=== PATIENT | female | born 1955 | race Caucasian/White ===

== ENCOUNTER 2016-06-15 20:59 | Emergency (ER) | payer SELFPAY ==
[2016-06-15 21:05] VITALS: BP 156/67
[2016-06-15] MEDS ORDERED: ASPIRIN 81 MG TABLET, CHEWABLE PO ONE (21:06)
--- NOTE | 2016-06-15 21:06 | ER Document Report ---
ED Medical Screen (RME) - General Stated Complaint: PALPITATIONS Notes: patient is a 60 year old female p/w palpitations since sunday but got worse today. shortness of breath with palpitations. denies swollen extremities. PMH: CHF, DM, HTN, HLD stress test: august 2015 dyspnea, CTAB I have greeted and performed a rapid initial assessment of this patient. A comprehensive ED assessment and evaluation of the patient, analysis of test results and completion of the medical decision making process will be conducted by additional ED providers. TRAVEL OUTSIDE OF THE [place] IN LAST 30 DAYS: No - Related Data Allergies/Adverse Reactions: Penicillins Allergy (Verified 04/04/16 23:48) Past Medical History - Past Medical History Cardiac Medical History: Reports: Hx Congestive Heart Failure, Hx Hypertension Endocrine Medical History: Reports: Hx Diabetes Mellitus Type 2 - Immunizations Hx Diphtheria, Pertussis, Tetanus Vaccination: Yes
[2016-06-15 21:33] LABS: ABSOLUTE BASOPHILS # (AUTO) 0.1 10^3/uL (0.0-0.2); ABSOLUTE EOSINOPHILS # (AUTO) 0.3 10^3/uL (0.0-0.6); ABSOLUTE LYMPHOCYTES (AUTO) 2.5 10^3/uL (0.5-4.7); ABSOLUTE MONOCYTES (AUTO) 0.6 10^3/uL (0.1-1.4); ABSOLUTE NEUT (AUTO) 5.6 10^3/uL (1.7-8.2); BASOPHILS % (AUTO) 0.6 % (0-2); EOSINOPHILS % (AUTO) 3.7 % (0-6); HEMATOCRIT 38.7 % (36.0-47.0); HEMOGLOBIN 12.8 g/dL (12.0-15.5); HGB HCT DIFFERENCE -0.3; LYMPHOCYTES % (AUTO) 27.6 % (13-45); MEAN CORPUSCULAR HEMOGLOBIN 27.4 pg (27.0-33.4); MEAN CORPUSCULAR HGB CONC 33.1 g/dL (32.0-36.0); MEAN CORPUSCULAR VOLUME 83 fl (80-97); MONOCYTES % (AUTO) 6.9 % (3-13); RED BLOOD COUNT 4.68 10^6/uL (3.72-5.28); RED CELL DISTRIBUTION WIDTH 15.3 % (11.5-14.0); SEGMENTED NEUTROPHILS % (AUTO) 61.2 % (42-78); WHITE BLOOD COUNT 9.2 10^3/uL (4.0-10.5)
[2016-06-15 21:47] LABS: ALANINE AMINOTRANSFERASE 19 U/L (9-52); ALBUMIN 3.8 g/dL (3.5-5.0); ALKALINE PHOSPHATASE 81 U/L (38-126); ANION GAP 7 (5-19); ASPARTATE AMINO TRANSFERASE 11 U/L (14-36); BILIRUBIN,TOTAL 0.3 mg/dL (0.2-1.3); BLOOD UREA NITROGEN 13 mg/dL (7-20); CALCIUM 9.6 mg/dL (8.4-10.2); CARBON DIOXIDE 30 mmol/L (22-30); CHLORIDE 103 mmol/L (98-107); CREATINE KINASE 42 U/L (30-135); CREATININE RESULT 0.71 mg/dL (0.52-1.25); GLUCOSE 232 mg/dL (75-110); POTASSIUM 4.3 mmol/L (3.6-5.0); SODIUM 140.3 mmol/L (137-145); TOTAL PROTEIN 7.3 g/dL (6.3-8.2)
[2016-06-15 22:01] LABS: CREATINE KINASE MB < 0.22 ng/mL (<4.55); TROPONIN I < 0.012 ng/mL
--- NOTE | 2016-06-15 22:24 | ER Document Report ---
ED General - General Chief Complaint: Palpitations Stated Complaint: PALPITATIONS Notes: Patient is a 60-year-old female who presents with palpitations. States that for the past several weeks she has felt intermittent "thumps" in her chest followed by "a pause where it feels like my heart isn't beating". Denies any chest pain, shortness of breath, nausea, vomiting. Nothing improves or worsens or symptoms. 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 Notes a history of similar symptoms in the past that did spontaneously resolve. No new medications. TRAVEL OUTSIDE OF THE [place] IN LAST 30 DAYS: No - Related Data Allergies/Adverse Reactions: Penicillins Allergy (Verified 04/04/16 23:48) Past Medical History - General Information source: Patient - Social History Smoking Status: Never Smoker Frequency of alcohol use: None Drug Abuse: None Lives with: Spouse/Significant other Family History: Reviewed & Not Pertinent Patient has suicidal ideation: No Patient has homicidal ideation: No - Past Medical History Cardiac Medical History: Reports: Hx Congestive Heart Failure, Hx Hypertension Endocrine Medical History: Reports: Hx Diabetes Mellitus Type 2 Renal/ Medical History: Denies: Hx Peritoneal Dialysis - Immunizations Hx Diphtheria, Pertussis, Tetanus Vaccination: Yes Review of Systems - Review of Systems Notes: Constitutional: Negative for fever. HENT: Negative for sore throat. Eyes: Negative for visual changes. Cardiovascular: Negative for chest pain. Positive for palpitations Respiratory: Negative for shortness of breath. Gastrointestinal: Negative for abdominal pain, vomiting or diarrhea. Genitourinary: Negative for dysuria. Musculoskeletal: Negative for back pain. Skin: Negative for rash. Neurological: Negative for headaches, weakness or numbness. 10 point ROS negative except as marked above and in HPI. Physical Exam - Vital signs Vitals: Temp Pulse Resp BP Pulse Ox 97.3 F 71 18 156/67 H 97 06/15/16 21:02 06/15/16 21:02 06/15/16 21:02 06/15/16 21:02 06/15/16 21:02 Interpretation: Hypertensive Notes: PHYSICAL EXAMINATION: GENERAL: Well-appearing, well-nourished and in no acute distress. HEAD: Atraumatic, normocephalic. EYES: Pupils equal round and reactive to light, extraocular movements intact, sclera anicteric, conjunctiva are normal. ENT: nares patent, oropharynx clear without exudates. Moist mucous membranes. NECK: Normal range of motion, supple without lymphadenopathy LUNGS: Breath sounds clear to auscultation bilaterally and equal. No wheezes rales or rhonchi. HEART: Regular rate and rhythm without murmurs ABDOMEN: Soft, nontender, normoactive bowel sounds. No guarding, no rebound. No masses appreciated. EXTREMITIES: Normal range of motion, no pitting or edema. No cyanosis. NEUROLOGICAL: No focal neurological deficits. Moves all extremities spontaneously and on command. PSYCH: Normal mood, normal affect. SKIN: Warm, Dry, normal turgor, no rashes or lesions noted. Course - Re-evaluation Re-evalutation: 06/15/16 22:21 Patient presents with palpitations but is in no acute distress. Vitals within normal limits at time of arrival. EKG unremarkable with a normal sinus rhythm. Laboratories are unremarkable. Patient denies any chest pain, shortness of breath, or vomiting. At this time based on exam and history do not suspect a new onset arrhythmia, ACS, acute pulmonary embolus, aortic dissection. Patient encouraged to follow-up with her primary care physician as well as cardiology and a referral has been provided.At this time will discharge with return precautions and follow-up recommendations. Verbal discharge instructions given a the bedside and opportunity for questions given. Medication warnings reviewed. Patient is in agreement with this plan and has verbalized understanding of return precautions and the need for primary care follow-up in the next 24-72 hours. - Vital Signs Vital signs: Temp Pulse Resp BP Pulse Ox 97.3 F 71 20 156/67 H 99 06/15/16 21:02 06/15/16 21:02 06/15/16 22:35 06/15/16 21:02 06/15/16 22:35 - Laboratory Result Diagrams: 06/15/16 21:24 06/15/16 21:24 Laboratory results interpreted by me: 06/15/16 06/15/16 21:24 21:24 RDW 15.3 H Glucose 232 H AST 11 L - EKG Interpretation by Me Additional EKG results interpreted by me: 06/15/16 22:23 Normal sinus rhythm. Rate 65. No ST elevations or depressions. QTC 500. Discharge - Discharge Clinical Impression: Palpitations Condition: Good Disposition: HOME, SELF-CARE Additional Instructions: Please follow-up closely with cardiology regarding your palpitations. Return if you pass out, have shortness of breath, persistent vomiting, develop significant chest pain, or have any other symptoms that are concerning to you. Referrals: JASON BUTTERFIELD MD [ACTIVE STAFF] - Follow up in 3-5 days
--- NOTE | 2016-06-16 08:24 | EKG REPORT ---
SEVERITY:- ABNORMAL ECG - SINUS RHYTHM LEFT VENTRICULAR HYPERTROPHY BORDERLINE PROLONGED QT INTERVAL : Confirmed by: Tariq Caballero MD 16-Jun-2016 08:23:21
== END 2016-06-15 22:50 | disposition home or self-care (01) ==
LOC: ER 20:59
DX: R00.2 Palpitations (principal)
CPT/HCPCS: 36415; 80053; 82550; 82553; 83880; 84484; 85025; 93005; 93010; 99285

== ENCOUNTER 2016-08-04 09:20 | Day surgery (SDC) | payer MEDICAID ==
[2016-08-04] MEDS ORDERED: NALOXONE HCL INJ/PF 0.4 MG/1 ML SDV ONE (09:56)
[2016-08-04] MEDS ORDERED: DIPHENHYDRAMINE HCL 50 MG/ML VIAL ONE (09:57)
[2016-08-04] MEDS ORDERED: PROMETHAZINE HCL INJ 25 MG/1 ML VIAL ONE (09:57)
[2016-08-04] MEDS ORDERED: ONDANSETRON HCL INJ/PF 4 MG/2 ML SDV ONE (09:57)
[2016-08-04] MEDS ORDERED: FLUMAZENIL INJ 0.5 MG/5 ML VIAL IV ONE (09:58)
[2016-08-04] MEDS ORDERED: EPINEPHRINE INJ 1 MG/10 ML DISP.SYRIN ONE (09:58)
[2016-08-04] MEDS ORDERED: FENTANYL CITRATE INJ/PF 100 MCG/2 ML AMPUL ONE (09:58)
[2016-08-04] MEDS ORDERED: GLUCAGON,HUMAN RECOMB 1 MG INJ ONE (09:58)
[2016-08-04] MEDS: MIDAZOLAM 2 MG/2 ML INJ ONE ×2 (10:12→10:16)
--- NOTE | 2016-08-04 10:37 | Operative Report ---
Operative Report DATE OF SURGERY: 08/04/16 Operative Report: The risks, benefits and alternatives of the procedure including risks of bleeding, perforation requiring surgery are explained to the patient detail and informed consents obtained. Patient is taken to the endoscopy suite and placed in a left, lateral decubital position. Timeout is called. Conscious sedation medications are provided. An Olympus videoscope was inserted patient's rectum the scope was then gradually advanced all the way to the cecum. The cecum was identified by the usual anatomical landmarks including the ileocecal valve as well as the appendiceal office. Photo recommendations obtained. Prep is good. Scope was then sequentially pulled back via the rest segments of the colon including the ascending colon, hepatic flexure, transverse colon, splenic flexure, descending colon and finally into the rectosigmoid portions of the colon. Retroflexion maneuvers performed. PREOPERATIVE DIAGNOSIS: Colon cancer screening. POSTOPERATIVE DIAGNOSIS: Colon polyp noted in the descending colon that is removed via snare polypectomy. Right Sided inflammation status post biopsy. Internal hemorrhoids OPERATION: Colonoscopy with snare polypectomy. Colonoscopy with biopsy SURGEON: RICHARD BARBA ANESTHESIA: Moderate Sedation - 4 mg of Versed, 75 g of fentanyl. Conscious sedation monitoring time 30 minutes. TISSUE REMOVED OR ALTERED: Colon polyp is retrieved. Right Sided mucosal inflammation specimen retrieved. COMPLICATIONS: None. ESTIMATED BLOOD LOSS: none. INTRAOPERATIVE FINDINGS: As noted above. PROCEDURE: Patient tolerated procedure well. No immediate post procedure competitions are noted. Patient discharged in good condition. Discharge date 08/04/2016. Discharge diet: Regular. Discharge activity: Regular. 2-3 week follow-up to discuss findings. Patient is instructed to call the office should there be any further problems or questions. Five-year surveillance colonoscopy. We'll await on biopsies.
[2016-08-04 11:32] VITALS: BP 134/61
== END 2016-08-04 11:40 | disposition home or self-care (01) ==
LOC: END 09:20
PROVIDERS: ATTEND Internal Medicine Gastroenterology
PROC: 0DBF8ZX Excision of Right Large Intestine, Via Natural or Artificial Opening Endoscopic, Diagnostic (ICD-10-PCS; principal; 2016-08-04 10:00)
PROC: 0DBM8ZX Excision of Descending Colon, Via Natural or Artificial Opening Endoscopic, Diagnostic (ICD-10-PCS; 2016-08-04 10:00)
DX: D12.4 Benign neoplasm of descending colon (principal); K52.9 Noninfective gastroenteritis and colitis, unspecified; K64.8 Other hemorrhoids; E11.9 Type 2 diabetes mellitus without complications; E78.5 Hyperlipidemia, unspecified; F17.210 Nicotine dependence, cigarettes, uncomplicated; I50.40 Unspecified combined systolic (congestive) and diastolic (congestive) heart failure; E66.9 Obesity, unspecified; Z79.82 Long term (current) use of aspirin; Z68.35 Body mass index [BMI] 35.0-35.9, adult; Z79.84 Long term (current) use of oral hypoglycemic drugs; Z88.0 Allergy status to penicillin
CPT/HCPCS: 45380; 45385; 82962; 88305 ×2; J2250; J3010; J0171; J1200; J1610; J2310; J2405; J2550; J3490

== ENCOUNTER → 2016-08-14 | Outpatient (CLI) | payer MEDICAID ==
[2016-08-14 10:54] LABS: ALANINE AMINOTRANSFERASE 23 U/L (9-52); ALBUMIN 4.3 g/dL (3.5-5.0); ALKALINE PHOSPHATASE 75 U/L (38-126); ANION GAP 12 (5-19); ASPARTATE AMINO TRANSFERASE 14 U/L (14-36); BILIRUBIN,DIRECT 0.1 mg/dL (0.0-0.4); BILIRUBIN,TOTAL 0.4 mg/dL (0.2-1.3); BLOOD UREA NITROGEN 14 mg/dL (7-20); CALCIUM 9.3 mg/dL (8.4-10.2); CARBON DIOXIDE 26 mmol/L (22-30); CHLORIDE 105 mmol/L (98-107); CREATININE RESULT 0.56 mg/dL (0.52-1.25); Direct HDL 44 mg/dL (>40); GLUCOSE 156 mg/dL (75-110); POTASSIUM 4.6 mmol/L (3.6-5.0); SODIUM 143.1 mmol/L (137-145); TOTAL PROTEIN 7.1 g/dL (6.3-8.2); TRIGLYCERIDES 72 mg/dL (<150)
[2016-08-14 11:05] LABS: DIRECT LDL 68 mg/dL (<100)
== END ==
LOC: OD 09:30
PROVIDERS: ATTEND Internal Medicine Cardiovascular Disease
DX: E78.2 Mixed hyperlipidemia (principal); Z79.899 Other long term (current) drug therapy
CPT/HCPCS: 36415; 80048; 80061; 80076; 84443

== ENCOUNTER → 2016-08-17 | Outpatient (CLI) | payer MEDICAID | LOC: WI 09:44 | PROVIDERS: ATTEND Family Medicine | DX: Z12.31 Encounter for screening mammogram for malignant neoplasm of breast (principal) | CPT/HCPCS: 77067; G0202 ==

== ENCOUNTER 2016-11-13 04:49 | Emergency (ER) | payer MEDICAID ==
--- NOTE | 2016-11-13 05:20 | ER Document Report ---
ED Respiratory Problem - General Chief Complaint: Shortness Of Breath Stated Complaint: CANNOT BREATH Time Seen by Provider: 11/13/16 05:17 Mode of Arrival: Ambulatory Information source: Patient Notes: 60-year-old female presents to ED for shortness of breath since . She states she has not had a good bowel movement since except for a few little round balls and that is when her shortness of breath started. She does have a past medical history of high cholesterol diabetes and CHF. States she smokes a pack a day TRAVEL OUTSIDE OF THE [place] IN LAST 30 DAYS: No - HPI Patient complains to provider of: CHF, Short of breath Onset: Other - She states she has been short of breath since Duration: Continuous, Intermittent episodes Quality of pain: Cramping - Mental cramping from not having a Severity: Moderate Pain Level: 4 Context: Hx CHF, Smoker Short of Breath: Moderate Sputum amount: None Associated symptoms: Short of breath - States the shortness of breath started after the cramping in her abdomen from not having a bowel movement, Other - States she has been constipated Similar symptoms previously: Yes Recently seen / treated by doctor: No - Related Data Allergies/Adverse Reactions: Penicillins Allergy (Verified 08/04/16 09:46) Past Medical History - General Information source: Patient - Social History Smoking Status: Current Every Day Smoker Cigarette use (# per day): Yes - Pack per day Chew tobacco use (# tins/day): No Smoking Education Provided: Yes - Less than 2 minutes Frequency of alcohol use: None Drug Abuse: None Occupation: none Lives with: Spouse/Significant other Family History: DM, Hypertension, Malignancy. denies: Arthritis, CAD, COPD, CVA , Hyperlipidemia, Thyroid Disfunction Patient has suicidal ideation: No Patient has homicidal ideation: No - Past Medical History Cardiac Medical History: Reports: Hx Congestive Heart Failure, Hx Coronary Artery Disease, Hx Hypertension Pulmonary Medical History: Reports: None EENT Medical History: Reports: None Neurological Medical History: Reports: None Endocrine Medical History: Reports: Hx Diabetes Mellitus Type 2 Renal/ Medical History: Reports: None Malignancy Medical History: Reports: None GI Medical History: Reports: None Musculoskeltal Medical History: Reports None Skin Medical History: Reports None Psychiatric Medical History: Reports: None Traumatic Medical History: Reports: None Infectious Medical History: Reports: None Past Surgical History: Reports: Hx Breast Surgery - Cyst removed from breast - Immunizations Immunizations up to date: Yes Hx Diphtheria, Pertussis, Tetanus Vaccination: Yes Review of Systems - Review of Systems Constitutional: No symptoms reported EENT: No symptoms reported Cardiovascular: No symptoms reported Respiratory: Short of breath Gastrointestinal: Abdominal pain, Constipation Genitourinary: No symptoms reported Female Genitourinary: No symptoms reported Musculoskeletal: No symptoms reported Skin: No symptoms reported Hematologic/Lymphatic: No symptoms reported Neurological/Psychological: No symptoms reported -: Yes All other systems reviewed and negative Physical Exam - Vital signs Vitals: Temp Pulse Resp BP Pulse Ox 97.5 F 68 22 H 150/79 H 99 11/13/16 04:52 11/13/16 04:52 11/13/16 04:52 11/13/16 04:52 11/13/16 04:52 Interpretation: Normal - General General appearance: Appears well, Alert - HEENT Head: Normocephalic, Atraumatic Eyes: Normal Pupils: PERRL - Respiratory Respiratory status: No respiratory distress Chest status: Nontender Breath sounds: Normal Chest palpation: Normal - Cardiovascular Rhythm: Regular Heart sounds: Normal auscultation Murmur: No - Abdominal Inspection: Normal Distension: No distension Bowel sounds: Hyperactive Tenderness: Tender Organomegaly: No organomegaly - Back Back: Normal, Nontender - Extremities General upper extremity: Normal inspection, Nontender, Normal color, Normal ROM , Normal temperature General lower extremity: Normal inspection, Nontender, Normal color, Normal ROM , Normal temperature, Normal weight bearing. No: Jose's sign - Neurological Neuro grossly intact: Yes Cognition: Normal Orientation: AAOx4 [place] Coma Scale Eye Opening: Spontaneous [place] Coma Scale Verbal: Oriented [place] Coma Scale Motor: Obeys Commands [place] Coma Scale Total: 15 Speech: Normal Motor strength normal: LUE, RUE, LLE, RLE Sensory: Normal - Psychological Associated symptoms: Normal affect, Normal mood - Skin Skin Temperature: Warm Skin Moisture: Dry Skin Color: Normal Course - Re-evaluation Re-evalutation: 11/13/16 07:21 Discussed labs and abdominal x-ray with Dr. Concepcion. Explained to him that the patient complained of constipation she had a enema and a very large bowel movement and now is no longer short of breath and feels much better. Will discharge patient home. Gave her a copy of the lab and x-ray reports to take to her primary doctor for follow-up - Vital Signs Vital signs: Temp Pulse Resp BP Pulse Ox 98.6 F 68 27 H 130/70 H 100 11/13/16 07:00 11/13/16 04:52 11/13/16 07:00 11/13/16 07:00 11/13/16 07:00 - Laboratory Result Diagrams: 11/13/16 05:25 11/13/16 05:25 Laboratory results interpreted by me: 11/13/16 11/13/16 05:25 05:25 Hgb 11.5 L Hct 35.8 L MCH 26.7 L RDW 16.1 H Chloride 108 H Creatinine 0.48 L Glucose 173 H - Diagnostic Test Radiology reviewed: Image reviewed, Reports reviewed Discharge - Discharge Clinical Impression: Mild shortness of breath Constipation Qualifiers: Constipation type: unspecified constipation type Qualified Code(s): K59.00 - Constipation, unspecified Condition: Stable Disposition: HOME, SELF-CARE Additional Instructions: ABDOMINAL PAIN: There are many causes of abdominal pain. Pain can mean a serious problem requiring surgery (such as appendicitis). It can also be an innocent problem that goes away on its own (such as a viral infection). Often, time must pass to determine the cause of pain. The physician does not feel that hospitalization is necessary, at present. Things may change within the next 24 hours. Call the doctor or come back for re- examination if any problems occur, such as: (1) Pain that becomes more severe, steady, or becomes concentrated in one specific area. Also, pain that is more severe with movement or coughing. (2) Vomiting that persists or becomes more frequent. (3) Blood in the vomitus, urine, or bowel movements. Blood in the stool may have a tarry or black appearance. (4) Shaking chills or fever greater than 100 degrees F. (5) The abdomen becomes more distended or swollen. (6) Bowel movements cease. (7) Failure to improve as expected. NORMAL EXAM AND WORKUP: At this time, your examination and workup show no significant abnormality. No significant abnormal physical findings were noted. All laboratory, EKG, and imaging (x-ray, CT scans, ultrasound) studies that were ordered show no significant abnormality. Although your examination and all studies that were ordered showed no significant abnormal finding, there are no examinations and no studies that are 100% accurate. There is always the possibility that some abnormality could exist and not be detected with physical examination or within the limits and capabilities of laboratory and other studies. You should return or follow up as you were instructed on your visit today for further evaluation if your symptoms do not resolve. FOLLOW-UP CARE: If you have been referred to a physician for follow-up care, call the physician s office for an appointment as you were instructed or within the next two days. If you experience worsening or a significant change in your symptoms, notify the physician immediately or return to the Emergency Department at any time for re-evaluation. CONSTIPATION: Constipation is a common problem. It is especially likely as you get older. Constipation is a common cause of abdominal pain, but sometimes causes no symptoms at all. Causes of constipation include certain medications, dehydration, diets, inactivity, and low-fiber intake. Rarely, it can be a symptom of underlying disease. The physician has evaluated you for this. Avoid constipation by eating a diet high in fiber, fruits, and vegetables. Drink plenty of liquids. Get regular exercise. If possible, avoid constipating medicines like narcotic pain medication. Some vitamin tablets can cause constipation. Stool softeners may be needed for difficult cases. An excellent stool softener is Konsyl which is available at [facility], and [facility] drug store. Just add a teaspoon to a glass of pineapple or orange juice daily or twice a day if needed. Laxatives are useful for occasional constipation. You should use them only when necessary. Too-frequent use can make your bowels dependent on them. Some over the counter laxatives available without prescription are: Milk of Magnesia, 1-2 tablespoons twice a day Dulcolax, 5 mg pill or 10 mg suppository. Citrate of Magnesia, 4-5 ounces a day for a day or two For acute constipation, Fleet's Enemas and Dulcolax suppositories are helpful. Chronic, alf use of laxatives or enemas is not a good idea. Your bowel may become dependant on them. You do not need to have a bowel movement every day. Many people do fine with a bowel movement every three or four days. You should call your doctor or return for re-evaluation if you pass blood in the stool, or if you develop fever or increasing abdominal pain. BULK LAXATIVES: Bulk laxatives make the stool softer and bulkier. They're useful for preventing constipation. You can choose between psyllium, methylcellulose, and polycarbophil. They are available without a prescription. Psyllium brand names include Konsyl, Metamucil, Perdiem, Effer-Syllium and Hydrocil. It's available as powder, flavored drink powder, or chewable. The usual dose of psyllium powder is one heaping teaspoon in water each morning, increasing to twice a day if needed. [place] juice can disguise the slightly grainy texture. Methylcellulose is marketed as Citrucel and other brands. The average dose is two grams in a cup of water one to three times a day. Polycarbophil is marketed as Fiber-Con. Take two tablets with a cup of water one to three times a day. LAXATIVE: A laxative agent has been prescribed for your condition. This should result in passage of stool within 12 hours. Some mild intestinal cramping is common as the hard stool begins to move. You may have loose or runny stools for a short time. Contact your doctor if there is severe cramping, vomiting, or passage of blood. Return for further care if this medicine fails to improve your condition. Review labs and chest x-ray report have been given to you to follow-up with your primary doctor. FOLLOW-UP CARE: If you have been referred to a physician for follow-up care, call the physician s office for an appointment as you were instructed or within the next two days. If you experience worsening or a significant change in your symptoms, notify the physician immediately or return to the Emergency Department at any time for re-evaluation. Please call your primary doctor today and schedule a follow-up visit for your shortness of breath. You have stated you have a much relief after your large bowel movement with your enema. Forms: Elevated Blood Pressure Referrals: JESSICA NAIR MD [Primary Care Provider] - Follow up tomorrow
[2016-11-13 05:44] LABS: ABSOLUTE EOSINOPHILS # (AUTO) 0.4 10^3/uL (0.0-0.6); ABSOLUTE LYMPHOCYTES (AUTO) 2.4 10^3/uL (0.5-4.7); ABSOLUTE MONOCYTES (AUTO) 0.6 10^3/uL (0.1-1.4); ABSOLUTE NEUT (AUTO) 5.6 10^3/uL (1.7-8.2); BASOPHILS % (AUTO) 0.6 % (0-2); HEMATOCRIT 35.8 % (36.0-47.0); HEMOGLOBIN 11.5 g/dL (12.0-15.5); HGB HCT DIFFERENCE -1.3; MEAN CORPUSCULAR HEMOGLOBIN 26.7 pg (27.0-33.4); MEAN CORPUSCULAR HGB CONC 32.2 g/dL (32.0-36.0); MEAN CORPUSCULAR VOLUME 83 fl (80-97); MONOCYTES % (AUTO) 6.2 % (3-13); RED BLOOD COUNT 4.31 10^6/uL (3.72-5.28); RED CELL DISTRIBUTION WIDTH 16.1 % (11.5-14.0); SEGMENTED NEUTROPHILS % (AUTO) 62.2 % (42-78); WHITE BLOOD COUNT 9.1 10^3/uL (4.0-10.5)
[2016-11-13 05:54] LABS: ALANINE AMINOTRANSFERASE 25 U/L (9-52); ALBUMIN 3.9 g/dL (3.5-5.0); ALKALINE PHOSPHATASE 85 U/L (38-126); ANION GAP 9 (5-19); ASPARTATE AMINO TRANSFERASE 16 U/L (14-36); BILIRUBIN,DIRECT 0.3 mg/dL (0.0-0.4); BILIRUBIN,TOTAL 0.5 mg/dL (0.2-1.3); BLOOD UREA NITROGEN 9 mg/dL (7-20); CALCIUM 8.8 mg/dL (8.4-10.2); CARBON DIOXIDE 24 mmol/L (22-30); CHLORIDE 108 mmol/L (98-107); CREATINE KINASE 46 U/L (30-135); CREATININE RESULT 0.48 mg/dL (0.52-1.25); GLUCOSE 173 mg/dL (75-110); SODIUM 140.9 mmol/L (137-145); TOTAL PROTEIN 7.1 g/dL (6.3-8.2)
[2016-11-13 06:06] LABS: CREATINE KINASE MB 0.36 ng/mL (<4.55)
--- NOTE | 2016-11-13 06:12 | RADIOLOGY REPORT (SQ) ---
EXAM DESCRIPTION: ACUTE ABDOMEN SERIES COMPLETED DATE/TIME: 11/13/2016 5:54 am REASON FOR STUDY: short of breath and constipation COMPARISON: 11/25/2012. NUMBER OF VIEWS: Three views. 4 images. TECHNIQUE: Frontal chest, supine abdomen and upright/decubitus abdomen radiographic images acquired. LIMITATIONS: None. FINDINGS: CHEST: Mild interstitial markings with vascular redistribution. Mild -moderate enlargemen t of the cardiac silhouette. FREE AIR: None. No abnormal gas collections. BOWEL GAS PATTERN: Nonobstructive pattern. No dilated loops or air fluid levels. Paucity of bowel ga s. Moderate stool retention of the transverse and right colon. CALCIFICATIONS: No suspicious calcifications. HARDWARE: None in the abdomen. SOFT TISSUES: No gross mass or suggestion of organomegaly. BONES: No acute fracture. No worrisome bone lesions. [id number] osteoarthritis of bilateral h ips. OTHER: No other significant finding. IMPRESSION: Mild interstitial markings and [id number] enlargement of the cardiac silhouette. Differential diagnosis includes early/ mild CHF, mild pulmonary edema, and chronic interstitial lung disease. NO RADIOGRAPHIC EVIDENCE FOR ACUTE ABDOMINAL DISEASE. TECHNICAL DOCUMENTATION: JOB ID: [id number] [email or web address]- All Rights Reserved
[2016-11-13 06:13] LABS: TROPONIN I < 0.012 ng/mL
[2016-11-13] MEDS ORDERED: MINERAL OIL 30 ML UDCUP PR ONE (06:16)
[2016-11-13 07:07] VITALS: BP 130/70
--- NOTE | 2016-11-13 08:19 | EKG REPORT ---
SEVERITY:- ABNORMAL ECG - SINUS RHYTHM LEFT VENTRICULAR HYPERTROPHY BORDERLINE PROLONGED QT INTERVAL : Confirmed by: Tariq Caballero MD 13-Nov-2016 08:18:28
== END 2016-11-13 07:26 | disposition home or self-care (01) ==
LOC: ER 04:49
DX: K59.00 Constipation, unspecified (principal); R06.02 Shortness of breath; E78.00 Pure hypercholesterolemia, unspecified; E11.9 Type 2 diabetes mellitus without complications; I50.9 Heart failure, unspecified; F17.210 Nicotine dependence, cigarettes, uncomplicated
CPT/HCPCS: 93005; 99285; 36415; 82553; 82550; 85025; 80053; 84484; 74022; 93010; J3490

== ENCOUNTER 2017-02-16 03:23 | Emergency (ER) | payer SELFPAY ==
[2017-02-16] MEDS ORDERED: NITROGLYCERIN 0.4 MG/TAB 25 TAB/BOTTLE SL ONE (03:50)
--- NOTE | 2017-02-16 03:51 | ER Document Report ---
ED Cardiac - General Chief Complaint: Chest Pain > 30 Stated Complaint: DIFFICULTY BREATHING Time Seen by Provider: 02/16/17 03:48 Mode of Arrival: Medic Information source: Patient Notes: Patient is a 61-year-old female with a history of congestive heart failure who presents to the ER today for shortness of breath on exertion 3 days with left- sided chest pain. Patient states that the chest pain started yesterday on does not radiate anywhere else. She denies nausea or vomiting with this chest pain. She states that it is intermittent. Patient admits to coughing worse lately, over the past week or so. She denies any lower extremity swelling. She does take Lasix every day. Her last echo was this year but she does not remember when. She denies any fevers, chills, runny nose or other symptoms. She has no history of heart attack or stroke. TRAVEL OUTSIDE OF THE [place] IN LAST 30 DAYS: No - Related Data Allergies/Adverse Reactions: Penicillins Allergy (Verified 08/04/16 09:46) Past Medical History - General Information source: Patient - Social History Smoking Status: Unknown if Ever Smoked Family History: DM, Hypertension, Malignancy. denies: Arthritis, CAD, COPD, CVA , Hyperlipidemia, Thyroid Disfunction Patient has suicidal ideation: No Patient has homicidal ideation: No - Past Medical History Cardiac Medical History: Reports: Hx Congestive Heart Failure, Hx Coronary Artery Disease, Hx Hypertension Denies: Hx Heart Attack Pulmonary Medical History: Reports: Hx COPD Denies: Hx Asthma, Hx Bronchitis, Hx Pneumonia Neurological Medical History: Denies: Hx Cerebrovascular Accident, Hx Seizures Endocrine Medical History: Reports: Hx Diabetes Mellitus Type 2 Renal/ Medical History: Denies: Hx Peritoneal Dialysis Musculoskeltal Medical History: Denies Hx Arthritis Past Surgical History: Reports: Hx Breast Surgery - Cyst removed from breast. Denies: Hx Hysterectomy - Immunizations Immunizations up to date: Yes Hx Diphtheria, Pertussis, Tetanus Vaccination: Yes Review of Systems - Review of Systems Constitutional: No symptoms reported EENT: No symptoms reported Cardiovascular: See HPI Respiratory: See HPI Gastrointestinal: No symptoms reported Genitourinary: No symptoms reported Female Genitourinary: No symptoms reported Musculoskeletal: No symptoms reported Skin: No symptoms reported Hematologic/Lymphatic: No symptoms reported Neurological/Psychological: No symptoms reported Physical Exam - Vital signs Vitals: Temp Pulse Resp BP Pulse Ox 97.6 F 64 28 H 152/77 H 98 02/16/17 03:25 02/16/17 03:25 02/16/17 03:25 02/16/17 03:25 02/16/17 03:25 - Notes Notes: PHYSICAL EXAMINATION: GENERAL: anxious appearing, but in no acute distress. HEAD: Atraumatic, normocephalic. EYES: Pupils equal round and reactive to light, extraocular movements intact, sclera anicteric, conjunctiva are normal. ENT: ear canals without erythema or foreign body, TMs pearly flores with good bony landmarks, nares patent, oropharynx clear without exudates. Moist mucous membranes. Airway patent NECK: Normal range of motion, supple without lymphadenopathy LUNGS: CTAB and equal. No wheezes rales or rhonchi. HEART: Regular rate and rhythm without murmurs ABDOMEN: Soft, no tenderness. No guarding, no rebound EXTREMITIES: Normal range of motion, no pitting edema. No cyanosis. NEUROLOGICAL: Cranial nerves grossly intact. Normal sensory/motor exams. PSYCH: Normal mood, normal affect. SKIN: Warm, Dry, normal turgor, no rashes or lesions noted Course - Re-evaluation Re-evalutation: 02/16/17 06:38 Lab work is unremarkable with a normal set of cardiac enzymes. Chest x-ray reports vascular congestion and cardiomegaly. Patient was given IV Lasix here and nitro paste. Patient states the nitro did not relieve her chest pain because she was not really having any chest pain here in the emergency department when we gave her the nitro. At this time we are waiting for a second troponin to rule out cardiac ischemia. Her vital signs are stable, respiratory rate 18, 100% on room air oxygen saturation, normal blood pressure and not tachycardic. - Vital Signs Vital signs: Temp Pulse Resp BP Pulse Ox 97.6 F 64 22 H 137/58 H 98 02/16/17 03:25 02/16/17 03:25 02/16/17 06:01 02/16/17 06:01 02/16/17 06:01 - Laboratory Result Diagrams: 02/16/17 04:02 02/16/17 04:02 Laboratory results interpreted by me: 02/16/17 02/16/17 02/16/17 04:02 04:02 06:25 Hgb 11.5 L Hct 34.7 L RDW 15.9 H Sodium 145.5 H Chloride 108 H Glucose 166 H Urine Urobilinogen 4.0 H Discharge - Discharge Clinical Impression: CHF exacerbation Qualifiers: Congestive heart failure type: unspecified congestive heart failure type Qualified Code(s): I50.9 - Heart failure, unspecified Condition: Stable Additional Instructions: Take lasix 20mg by mouth twice daily for 14 days and have your doctor advise you what to do after that. Return immediately for any new or worsening symptoms. Follow up with primary care provider, call tomorrow to make followup appointment. Prescriptions: Furosemide [Lasix 20 mg Tablet] 20 mg PO BID #28 tablet Referrals: JESSICA NAIR MD [Primary Care Provider] - Follow up as needed
[2017-02-16 04:14] LABS: ABSOLUTE EOSINOPHILS # (AUTO) 0.3 10^3/uL (0.0-0.6); ABSOLUTE LYMPHOCYTES (AUTO) 2.2 10^3/uL (0.5-4.7); ABSOLUTE MONOCYTES (AUTO) 0.5 10^3/uL (0.1-1.4); ABSOLUTE NEUT (AUTO) 4.3 10^3/uL (1.7-8.2); BASOPHILS % (AUTO) 0.5 % (0-2); EOSINOPHILS % (AUTO) 3.6 % (0-6); HEMATOCRIT 34.7 % (36.0-47.0); HEMOGLOBIN 11.5 g/dL (12.0-15.5); HGB HCT DIFFERENCE -0.2; LYMPHOCYTES % (AUTO) 30.4 % (13-45); MEAN CORPUSCULAR HEMOGLOBIN 27.2 pg (27.0-33.4); MEAN CORPUSCULAR HGB CONC 33.2 g/dL (32.0-36.0); MEAN CORPUSCULAR VOLUME 82 fl (80-97); MONOCYTES % (AUTO) 6.8 % (3-13); RED BLOOD COUNT 4.24 10^6/uL (3.72-5.28); RED CELL DISTRIBUTION WIDTH 15.9 % (11.5-14.0); SEGMENTED NEUTROPHILS % (AUTO) 58.7 % (42-78); WHITE BLOOD COUNT 7.3 10^3/uL (4.0-10.5)
[2017-02-16 04:27] LABS: ALANINE AMINOTRANSFERASE 26 U/L (9-52); ALBUMIN 4.1 g/dL (3.5-5.0); ALKALINE PHOSPHATASE 81 U/L (38-126); ANION GAP 12 (5-19); ASPARTATE AMINO TRANSFERASE 19 U/L (14-36); BILIRUBIN,DIRECT 0.4 mg/dL (0.0-0.4); BILIRUBIN,TOTAL 0.7 mg/dL (0.2-1.3); BLOOD UREA NITROGEN 10 mg/dL (7-20); CALCIUM 9.3 mg/dL (8.4-10.2); CARBON DIOXIDE 26 mmol/L (22-30); CHLORIDE 108 mmol/L (98-107); CREATINE KINASE 46 U/L (30-135); GLUCOSE 166 mg/dL (75-110); POTASSIUM 3.9 mmol/L (3.6-5.0); SODIUM 145.5 mmol/L (137-145)
[2017-02-16 04:39] LABS: CREATINE KINASE MB 0.33 ng/mL (<4.55)
[2017-02-16 04:41] LABS: TROPONIN I < 0.012 ng/mL
--- NOTE | 2017-02-16 05:31 | RADIOLOGY REPORT (SQ) ---
EXAM DESCRIPTION: CHEST PA/LAT COMPLETED DATE/TIME: 02/16/2017 5:21 am REASON FOR STUDY: CP COMPARISON: None. EXAM PARAMETERS: NUMBER OF VIEWS: two views TECHNIQUE: Digital Frontal and Lateral radiographic views of the chest acquired. RADIATION DOSE: NA LIMITATIONS: none FINDINGS: LUNGS AND PLEURA: Mild interstitial markings including septal lines and vascular redistrib ution. MEDIASTINUM AND HILAR STRUCTURES: No masses or contour abnormalities. HEART AND VASCULAR STRUCTURES: Moderate enlargement of the cardiac silhouette. BONES: No acute findings. HARDWARE: None in the chest. OTHER: No other significant finding. IMPRESSION: Worsened moderate cardiac enlargement and mild interstitial markings. Differential diag nosis includes mild CHF, mild pulmonary edema, and/or chronic interstitial lung disease. TECHNICAL DOCUMENTATION: JOB ID: [id number] [employer]- All Rights Reserved
[2017-02-16] MEDS ORDERED: FUROSEMIDE INJ/PF 20 MG/2 ML SDV IV ONE (05:42)
[2017-02-16] MEDS ORDERED: NITROGLYCERIN 2% OINTMENT 1 GM PACKET TP ONE (05:43)
[2017-02-16 06:56] LABS: APPEARANCE,URINE CLEAR; BILIRUBIN,URINE NEGATIVE (NEGATIVE); GLUCOSE, URINE NEGATIVE (NEGATIVE); KETONES,URINE NEGATIVE (NEGATIVE); LEUKOCYTE ESTERASE,URINE NEGATIVE (NEGATIVE); NITRITE,URINE NEGATIVE (NEGATIVE); PROTEIN,URINE NEGATIVE (NEGATIVE); URINE SPECIFIC GRAVITY 1.005
[2017-02-16 08:16] VITALS: BP 130/60
--- NOTE | 2017-02-16 08:17 | EKG REPORT ---
SEVERITY:- ABNORMAL ECG - SINUS RHYTHM PROBABLE LEFT VENTRICULAR HYPERTROPHY BORDERLINE PROLONGED QT INTERVAL : Confirmed by: Tariq Caballero MD 16-Feb-2017 08:16:46
== END 2017-02-16 08:21 | disposition home or self-care (01) ==
LOC: ER 03:23
DX: I50.9 Heart failure, unspecified (principal); R07.9 Chest pain, unspecified; R06.00 Dyspnea, unspecified; R06.02 Shortness of breath; I10 Essential (primary) hypertension; E11.9 Type 2 diabetes mellitus without complications; Z88.0 Allergy status to penicillin
CPT/HCPCS: 93005; 99285; 96374; 36415; 82553; 82550; 85025; 80053; 81001; 84484; 71020; 93010; J1940

== ENCOUNTER 2017-03-16 12:57 | Emergency (ER) | payer SELFPAY ==
[2017-03-16] MEDS ORDERED: FUROSEMIDE INJ/PF 40 MG/4 ML SDV IV ONE (13:14)
--- NOTE | 2017-03-16 13:17 | ER Document Report ---
ED Medical Screen (RME) - General Chief Complaint: Shortness Of Breath Stated Complaint: BREATHING ISSUES Time Seen by Provider: 03/16/17 13:14 Mode of Arrival: Wheelchair Information source: Patient TRAVEL OUTSIDE OF THE [place] IN LAST 30 DAYS: No - HPI Patient complains to provider of: SOB Onset: Yesterday - pt. has h/o CHF and ran out of her Lasix yesterday. Developed SOB this am. Denies CP, ankle edema - Related Data Allergies/Adverse Reactions: Penicillins Allergy (Verified 03/16/17 13:04) Past Medical History - Past Medical History Cardiac Medical History: Reports: Hx Congestive Heart Failure, Hx Coronary Artery Disease, Hx Hypertension Denies: Hx Heart Attack Pulmonary Medical History: Reports: Hx COPD Denies: Hx Asthma, Hx Bronchitis, Hx Pneumonia Neurological Medical History: Denies: Hx Cerebrovascular Accident, Hx Seizures Endocrine Medical History: Reports: Hx Diabetes Mellitus Type 2 Renal/ Medical History: Denies: Hx Peritoneal Dialysis Musculoskeltal Medical History: Denies Hx Arthritis Past Surgical History: Reports: Hx Breast Surgery - Cyst removed from breast. Denies: Hx Hysterectomy - Immunizations Immunizations up to date: Yes Hx Diphtheria, Pertussis, Tetanus Vaccination: Yes Physical Exam - Vital signs Vitals: Temp Pulse Resp BP Pulse Ox 97.6 F 70 28 H 150/67 H 97 03/16/17 13:03 03/16/17 13:03 03/16/17 13:03 03/16/17 13:03 03/16/17 13:03 Course - Vital Signs Vital signs: Temp Pulse Resp BP Pulse Ox 97.6 F 70 28 H 150/67 H 97 03/16/17 13:03 03/16/17 13:03 03/16/17 13:03 03/16/17 13:03 03/16/17 13:03
[2017-03-16 14:06] LABS: ABSOLUTE BASOPHILS # (AUTO) 0.1 10^3/uL (0.0-0.2); ABSOLUTE EOSINOPHILS # (AUTO) 0.2 10^3/uL (0.0-0.6); ABSOLUTE LYMPHOCYTES (AUTO) 2.3 10^3/uL (0.5-4.7); ABSOLUTE MONOCYTES (AUTO) 0.5 10^3/uL (0.1-1.4); ABSOLUTE NEUT (AUTO) 4.2 10^3/uL (1.7-8.2); BASOPHILS % (AUTO) 0.9 % (0-2); EOSINOPHILS % (AUTO) 2.8 % (0-6); HEMATOCRIT 37.8 % (36.0-47.0); HEMOGLOBIN 12.6 g/dL (12.0-15.5); LYMPHOCYTES % (AUTO) 31.6 % (13-45); MEAN CORPUSCULAR HEMOGLOBIN 27.2 pg (27.0-33.4); MEAN CORPUSCULAR HGB CONC 33.3 g/dL (32.0-36.0); MEAN CORPUSCULAR VOLUME 82 fl (80-97); MONOCYTES % (AUTO) 6.5 % (3-13); RED BLOOD COUNT 4.62 10^6/uL (3.72-5.28); SEGMENTED NEUTROPHILS % (AUTO) 58.2 % (42-78); WHITE BLOOD COUNT 7.1 10^3/uL (4.0-10.5)
--- NOTE | 2017-03-16 14:09 | RADIOLOGY REPORT (SQ) ---
EXAM DESCRIPTION: CHEST PA/LAT COMPLETED DATE/TIME: 03/16/2017 1:57 pm REASON FOR STUDY: SOB COMPARISON: Chest films 07/11/2008, 04/23/2009, 01/15/2012, 11/25/2012, 02/16/2017 EXAM PARAMETERS: NUMBER OF VIEWS: two views TECHNIQUE: Digital Frontal and Lateral radiographic views of the chest acquired. RADIATION DOSE: NA LIMITATIONS: none FINDINGS: LUNGS AND PLEURA: Trace fluid in the major and minor fissures. Mild pulmonary vascular pr ominence without alveolar or interstitial edema. No dense consolidation worrisome for pneumonia. No pneumothorax. MEDIASTINUM AND HILAR STRUCTURES: No masses or contour abnormalities. HEART AND VASCULAR STRUCTURES: Marked cardiomegaly is present, similar compared to 02/16/2017 and new compared 11/25/2012. BONES: No acute findings. HARDWARE: None in the chest. OTHER: No other significant finding. IMPRESSION: Significant cardiomegaly, new compared to 2012 Trace fluid in the major and minor fissures. No alveolar or interstitial pulmonary edema TECHNICAL DOCUMENTATION: JOB ID: [id number]- All Rights Reserved
[2017-03-16 14:50] LABS: ALANINE AMINOTRANSFERASE 24 U/L (9-52); ALBUMIN 4.4 g/dL (3.5-5.0); ALKALINE PHOSPHATASE 78 U/L (38-126); ANION GAP 14 (5-19); ASPARTATE AMINO TRANSFERASE 16 U/L (14-36); BILIRUBIN,DIRECT 0.5 mg/dL (0.0-0.4); BILIRUBIN,TOTAL 0.8 mg/dL (0.2-1.3); BLOOD UREA NITROGEN 12 mg/dL (7-20); CALCIUM 9.9 mg/dL (8.4-10.2); CARBON DIOXIDE 28 mmol/L (22-30); CHLORIDE 103 mmol/L (98-107); CREATINE KINASE 58 U/L (30-135); GLUCOSE 170 mg/dL (75-110); POTASSIUM 3.7 mmol/L (3.6-5.0); SODIUM 144.6 mmol/L (137-145); TOTAL PROTEIN 7.5 g/dL (6.3-8.2)
[2017-03-16 14:52] LABS: CREATINE KINASE MB 0.34 ng/mL (<4.55)
[2017-03-16 14:56] LABS: TROPONIN I < 0.012 ng/mL
[2017-03-16] MEDS ORDERED: ALBUTEROL SULFATE 0.083% NEB 2.5 MG/3 ML AMPUL NEB ONE (15:23)
--- NOTE | 2017-03-16 15:49 | ER Document Report ---
ED Respiratory Problem - General Chief Complaint: Shortness Of Breath Stated Complaint: BREATHING ISSUES Time Seen by Provider: 03/16/17 13:14 Mode of Arrival: Wheelchair Information source: Patient TRAVEL OUTSIDE OF THE [place] IN LAST 30 DAYS: No - HPI Patient complains to provider of: Short of breath Onset: Last week Duration: Worse/persistent Quality of pain: Achy Severity: Mild Pain Level: 1 Context: Hx CHF, Hx COPD, Smoker Short of Breath: Moderate Chest pain/discomfort: Tightness Associated symptoms: Short of breath Similar symptoms previously: Yes Recently seen / treated by doctor: Yes Notes: Patient is a 61-year-old female with a history of COPD who continues to smoke at least half a pack per day, congestive heart failure hypertension and diabetes , she presents to the emergency room today complaining of difficulty breathing, denies a cough, no chest pain, no lower extremity swelling, she was recently seen in this department and advised to double up her Lasix dosing which she has done but is now out of it, she has not followed up with her primary care provider due to insurance and financial issues - Related Data Allergies/Adverse Reactions: Penicillins Allergy (Verified 03/16/17 13:04) Past Medical History - General Information source: Patient - Social History Smoking Status: Current Every Day Smoker Chew tobacco use (# tins/day): No Frequency of alcohol use: None Drug Abuse: None Family History: DM, Hypertension, Malignancy. denies: Arthritis, CAD, COPD, CVA , Hyperlipidemia, Thyroid Disfunction Patient has suicidal ideation: No Patient has homicidal ideation: No - Past Medical History Cardiac Medical History: Reports: Hx Congestive Heart Failure, Hx Coronary Artery Disease, Hx Hypertension Denies: Hx Heart Attack Pulmonary Medical History: Reports: Hx COPD Denies: Hx Asthma, Hx Bronchitis, Hx Pneumonia Neurological Medical History: Denies: Hx Cerebrovascular Accident, Hx Seizures Endocrine Medical History: Reports: Hx Diabetes Mellitus Type 2 Renal/ Medical History: Denies: Hx Peritoneal Dialysis Musculoskeltal Medical History: Denies Hx Arthritis Past Surgical History: Reports: Hx Breast Surgery - Cyst removed from breast. Denies: Hx Hysterectomy - Immunizations Immunizations up to date: Yes Hx Diphtheria, Pertussis, Tetanus Vaccination: Yes Review of Systems - Review of Systems Constitutional: No symptoms reported EENT: No symptoms reported Cardiovascular: No symptoms reported Respiratory: See HPI Gastrointestinal: No symptoms reported Genitourinary: No symptoms reported Female Genitourinary: No symptoms reported Musculoskeletal: No symptoms reported Skin: No symptoms reported Hematologic/Lymphatic: No symptoms reported Neurological/Psychological: No symptoms reported -: Yes All other systems reviewed and negative Physical Exam - Vital signs Vitals: Temp Pulse Resp BP Pulse Ox 97.6 F 70 28 H 150/67 H 97 03/16/17 13:03 03/16/17 13:03 03/16/17 13:03 03/16/17 13:03 03/16/17 13:03 Interpretation: Hypertensive, Tachypneic - General General appearance: Appears well, Alert - HEENT Head: Normocephalic, Atraumatic Eyes: Normal Pupils: PERRL - Respiratory Respiratory status: No respiratory distress Chest status: Nontender Breath sounds: Wheezing - Mild wheeze on exhalation Chest palpation: Normal - Cardiovascular Rhythm: Regular Heart sounds: Normal auscultation Murmur: No - Abdominal Inspection: Normal Distension: No distension Bowel sounds: Normal Tenderness: Nontender Organomegaly: No organomegaly - Back Back: Normal, Nontender - Extremities General upper extremity: Normal inspection, Nontender, Normal color, Normal ROM , Normal temperature General lower extremity: Normal inspection, Nontender, Normal color, Normal ROM , Normal temperature, Normal weight bearing. No: Jose's sign - Neurological Neuro grossly intact: Yes Cognition: Normal Orientation: AAOx4 [place] Coma Scale Eye Opening: Spontaneous [place] Coma Scale Verbal: Oriented [place] Coma Scale Motor: Obeys Commands [place] Coma Scale Total: 15 Speech: Normal Motor strength normal: LUE, RUE, LLE, RLE Sensory: Normal - Psychological Associated symptoms: Normal affect, Normal mood - Skin Skin Temperature: Warm Skin Moisture: Dry Skin Color: Normal Course - Re-evaluation Re-evalutation: 03/16/17 17:03 Patient ambulated with pulse ox, which did not drop below 98% the entire time, symptoms likely consistent with COPD exacerbation, patient was advised to quit smoking, follow-up with her primary care provider or return if symptoms worsen, patient acknowledges understanding and agreement with this plan - Vital Signs Vital signs: Temp Pulse Resp BP Pulse Ox 98.3 F 62 18 124/98 H 98 03/16/17 17:28 03/16/17 17:28 03/16/17 17:28 03/16/17 17:28 03/16/17 17:28 - Laboratory Result Diagrams: 03/16/17 13:49 03/16/17 13:49 Laboratory results interpreted by me: 03/16/17 03/16/17 13:49 13:49 RDW 16.0 H Glucose 170 H Direct Bilirubin 0.5 H - Diagnostic Test Radiology reviewed: Image reviewed, Reports reviewed - EKG Interpretation by Me EKG shows normal: Sinus rhythm Rate: Bradycardia Discharge - Discharge Clinical Impression: COPD (chronic obstructive pulmonary disease) Qualifiers: COPD type: unspecified COPD Qualified Code(s): J44.9 - Chronic obstructive pulmonary disease, unspecified Condition: Stable Disposition: HOME, SELF-CARE Instructions: Chronic Obstructive Lung Disease ([facility]), Stop Smoking ([facility]) Additional Instructions: Follow up with your primary care provider in one to 2 days. Return to the emergency room immediately if symptoms worsen or any additional concerns. Prescriptions: Albuterol Sulfate [Proair HFA Inhalation Aerosol 8.5 gm MDI] 1 puff IH Q4 PRN # 1 mdi PRN Reason: Furosemide 20 mg PO BID #60 tablet
[2017-03-16 17:31] VITALS: BP 124/98
--- NOTE | 2017-03-16 18:38 | EKG REPORT ---
SEVERITY:- ABNORMAL ECG - SINUS RHYTHM LVH WITH SECONDARY REPOLARIZATION ABNORMALITY : Confirmed by: Tariq Caballero MD 16-Mar-2017 18:37:25
== END 2017-03-16 17:31 | disposition home or self-care (01) ==
LOC: ER 12:57
DX: J44.9 Chronic obstructive pulmonary disease, unspecified (principal); F17.210 Nicotine dependence, cigarettes, uncomplicated; I50.9 Heart failure, unspecified; I11.0 Hypertensive heart disease with heart failure; E11.9 Type 2 diabetes mellitus without complications; Z88.0 Allergy status to penicillin
CPT/HCPCS: 93005; 94640; 99285; 96374; 36415; 82553; 82550; 85025; 80053; 84484; 83880; 71020; 93010; J1940

== ENCOUNTER → 2017-04-25 | Outpatient (CLI) | payer MEDICAID ==
[2017-04-25 15:45] LABS: ANION GAP 12 (5-19); BLOOD UREA NITROGEN 13 mg/dL (7-20); CALCIUM 9.9 mg/dL (8.4-10.2); CARBON DIOXIDE 29 mmol/L (22-30); CHLORIDE 102 mmol/L (98-107); CREATININE RESULT 0.71 mg/dL (0.52-1.25); GLUCOSE 210 mg/dL (75-110); MAGNESIUM 1.7 mg/dL (1.6-2.3); POTASSIUM 4.5 mmol/L (3.6-5.0)
== END ==
LOC: OD 14:11
PROVIDERS: ATTEND Internal Medicine Cardiovascular Disease
DX: I50.9 Heart failure, unspecified (principal); R06.02 Shortness of breath; I10 Essential (primary) hypertension
CPT/HCPCS: 36415; 80048; 83735; 83880

== ENCOUNTER → 2017-10-03 | Outpatient (CLI) | payer MEDICAID ==
[2017-10-03 17:28] LABS: ANION GAP 12 (5-19); BLOOD UREA NITROGEN 16 mg/dL (7-20); CARBON DIOXIDE 30 mmol/L (22-30); CHLORIDE 96 mmol/L (98-107); GLUCOSE 302 mg/dL (75-110); SODIUM 138.3 mmol/L (137-145)
== END ==
LOC: LAB 16:31
PROVIDERS: ATTEND Internal Medicine Cardiovascular Disease
DX: E83.42 Hypomagnesemia (principal); I50.9 Heart failure, unspecified; R00.2 Palpitations; R06.02 Shortness of breath
CPT/HCPCS: 36415; 80048; 83735; 83880

== ENCOUNTER 2017-12-18 15:22 | Emergency (ER) | payer SELFPAY ==
[2017-12-18 15:56] VITALS: BP 125/60
[2017-12-18] MEDS ORDERED: IPRATROPIUM/ALBUTEROL 0.5-2.5 MG/3 ML AMPUL NEB ONE (16:28)
[2017-12-18] MEDS ORDERED: LIDOCAINE 1% INJ-PF (10 MG/ML) 30 ML SDV NEB ONE (16:28)
--- NOTE | 2017-12-18 16:51 | RADIOLOGY REPORT (SQ) ---
EXAM DESCRIPTION: CHEST 2 VIEWS COMPLETED DATE/TIME: 12/18/2017 4:42 pm REASON FOR STUDY: cough COMPARISON: 03/16/2017 EXAM PARAMETERS: NUMBER OF VIEWS: two views TECHNIQUE: Digital Frontal and Lateral radiographic views of the chest acquired. RADIATION DOSE: NA LIMITATIONS: none FINDINGS: LUNGS AND PLEURA: No opacities, masses or pneumothorax. No pleural effusion. MEDIASTINUM AND HILAR STRUCTURES: No masses or contour abnormalities. HEART AND VASCULAR STRUCTURES: Cardiomegaly. No pulmonary edema. BONES: No acute findings. HARDWARE: None in the chest. OTHER: No other significant finding. IMPRESSION: Cardiomegaly without pulmonary edema. No focal infiltrates are seen. TECHNICAL DOCUMENTATION: JOB ID: [id number] [employer]- All Rights Reserved Reading location - IP/workstation name: [email or web address]
[2017-12-18 18:17] LABS: APPEARANCE,URINE CLEAR; BILIRUBIN,URINE NEGATIVE (NEGATIVE); COLOR,URINE YELLOW; GLUCOSE, URINE 50 mg/dL (NEGATIVE); KETONES,URINE NEGATIVE (NEGATIVE); LEUKOCYTE ESTERASE,URINE NEGATIVE (NEGATIVE); NITRITE,URINE NEGATIVE (NEGATIVE); PROTEIN,URINE 30 mg/dL (NEGATIVE); URINE SPECIFIC GRAVITY 1.016
[2017-12-18] MEDS ORDERED: PREDNISONE 20 MG TABLET PO ONE (18:25)
[2017-12-18] MEDS ORDERED: ALBUTEROL SULFATE HFA (90 MCG/PUFF) 8 GM MDI (1 MDI/ER DISP) IH ONE (18:25)
[2017-12-18] MEDS ORDERED: BENZONATATE 100 MG CAPSULE PO ONE (18:25)
--- NOTE | 2017-12-18 18:28 | ER Document Report ---
ED Medical Screen (RME) - General Chief Complaint: Productive Cough Stated Complaint: COUGH, FREQUENT URINATION Time Seen by Provider: 12/18/17 16:11 TRAVEL OUTSIDE OF THE [place] IN LAST 30 DAYS: No - Related Data Allergies/Adverse Reactions: Penicillins Allergy (Verified 03/16/17 13:04) Past Medical History - Social History Chew tobacco use (# tins/day): No Frequency of alcohol use: None Drug Abuse: None - Past Medical History Cardiac Medical History: Reports: Hx Congestive Heart Failure, Hx Coronary Artery Disease, Hx Hypertension Denies: Hx Heart Attack Pulmonary Medical History: Reports: Hx COPD Denies: Hx Asthma, Hx Bronchitis, Hx Pneumonia Neurological Medical History: Denies: Hx Cerebrovascular Accident, Hx Seizures Endocrine Medical History: Reports: Hx Diabetes Mellitus Type 2 Renal/ Medical History: Denies: Hx Peritoneal Dialysis Musculoskeltal Medical History: Denies Hx Arthritis Past Surgical History: Reports: Hx Breast Surgery - Cyst removed from breast. Denies: Hx Hysterectomy - Immunizations Immunizations up to date: Yes Hx Diphtheria, Pertussis, Tetanus Vaccination: Yes Physical Exam - Vital signs Vitals: Temp Pulse Resp BP Pulse Ox 98.3 F 63 16 125/60 97 12/18/17 15:55 12/18/17 15:55 12/18/17 15:55 12/18/17 15:55 12/18/17 15:55 Course - Vital Signs Vital signs: Temp Pulse Resp BP Pulse Ox 98.3 F 63 16 125/60 97 12/18/17 15:55 12/18/17 15:55 12/18/17 15:55 12/18/17 15:55 12/18/17 15:55 - Laboratory Laboratory results interpreted by me: 12/18/17 17:55 Urine Protein 30 H Urine Glucose (UA) 50 H Urine Urobilinogen 4.0 H Doctor's Discharge - Discharge Referrals: BENJAMIN OBREGON MD [Primary Care Provider] - Follow up as needed
[2017-12-18] MEDS ORDERED: DOXYCYCLINE HYCLATE 100 MG TABLET PO ONE (18:30)
--- NOTE | 2017-12-18 18:44 | ER Document Report ---
ED General - General Chief Complaint: Productive Cough Stated Complaint: COUGH, FREQUENT URINATION Time Seen by Provider: 12/18/17 16:11 TRAVEL OUTSIDE OF THE [place] IN LAST 30 DAYS: No - HPI Patient complains to provider of: Productive cough t frequent urination Notes: Patient is here for evaluation urinary incontinence whenever coughing or straining. Patient states this is gotten worse is that she is developed a nonproductive cough. Patient is a smoker and continues to smoke. Patient denies any fevers chills chest pain abdominal pain nausea vomiting diarrhea. Patient states that she has multiple children were born vaginally. Patient states low back pain no numbness or tingling no bowel incontinence. - Related Data Allergies/Adverse Reactions: Penicillins Allergy (Verified 03/16/17 13:04) Past Medical History - Social History Smoking Status: Current Every Day Smoker Chew tobacco use (# tins/day): No Frequency of alcohol use: None Drug Abuse: None Family History: DM, Hypertension, Malignancy. denies: Arthritis, CAD, COPD, CVA , Hyperlipidemia, Thyroid Disfunction Patient has suicidal ideation: No Patient has homicidal ideation: No - Past Medical History Cardiac Medical History: Reports: Hx Congestive Heart Failure, Hx Coronary Artery Disease, Hx Hypertension Denies: Hx Heart Attack Pulmonary Medical History: Reports: Hx COPD Denies: Hx Asthma, Hx Bronchitis, Hx Pneumonia Neurological Medical History: Denies: Hx Cerebrovascular Accident, Hx Seizures Endocrine Medical History: Reports: Hx Diabetes Mellitus Type 2 Renal/ Medical History: Denies: Hx Peritoneal Dialysis Musculoskeletal Medical History: Denies Hx Arthritis Past Surgical History: Reports: Hx Breast Surgery - Cyst removed from breast. Denies: Hx Hysterectomy - Immunizations Immunizations up to date: Yes Hx Diphtheria, Pertussis, Tetanus Vaccination: Yes Review of Systems - Review of Systems Constitutional: No symptoms reported EENT: No symptoms reported Cardiovascular: No symptoms reported Respiratory: Cough, Short of breath, Wheezing Gastrointestinal: No symptoms reported Genitourinary: Frequency Female Genitourinary: No symptoms reported Musculoskeletal: No symptoms reported Skin: No symptoms reported Hematologic/Lymphatic: No symptoms reported Neurological/Psychological: No symptoms reported -: Yes All other systems reviewed and negative Physical Exam - Vital signs Vitals: Temp Pulse Resp BP Pulse Ox 98.3 F 63 16 125/60 97 12/18/17 15:55 12/18/17 15:55 12/18/17 15:55 12/18/17 15:55 12/18/17 15:55 Interpretation: Normal - General General appearance: Appears well, Alert - HEENT Head: Normocephalic, Atraumatic Eyes: Normal Pupils: PERRL - Respiratory Respiratory status: No respiratory distress Chest status: Nontender Breath sounds: Productive cough, Rhonchi, Wheezing Chest palpation: Normal - Cardiovascular Rhythm: Regular Heart sounds: Normal auscultation Murmur: No - Abdominal Inspection: Normal Distension: No distension Bowel sounds: Normal Tenderness: Nontender Organomegaly: No organomegaly - Back Back: Normal, Nontender - Extremities General upper extremity: Normal inspection, Nontender, Normal color, Normal ROM , Normal temperature General lower extremity: Normal inspection, Nontender, Normal color, Normal ROM , Normal temperature, Normal weight bearing. No: Jose's sign - Neurological Neuro grossly intact: Yes Cognition: Normal Orientation: AAOx4 [place] Coma Scale Eye Opening: Spontaneous [place] Coma Scale Verbal: Oriented [place] Coma Scale Motor: Obeys Commands [place] Coma Scale Total: 15 Speech: Normal Motor strength normal: LUE, RUE, LLE, RLE Sensory: Normal - Psychological Associated symptoms: Normal affect, Normal mood - Skin Skin Temperature: Warm Skin Moisture: Dry Skin Color: Normal Course - Re-evaluation Re-evalutation: 12/18/17 20:51 No signs of urinary tract infection. Chest x-ray is otherwise normal. Patient feeling better after breathing treatments. More likely underlying bronchitis with stress incontinence. Patient will be treated with bronchodilator therapy steroids educate the patient that she can follow-up with her INSTRUMENT LENS INSPECTOR for further evaluation of her incontinence to return to the ER immediately if she develops back pain bowel issues numbness and tingling. - Vital Signs Vital signs: Temp Pulse Resp BP Pulse Ox 98.3 F 63 16 125/60 97 12/18/17 15:55 12/18/17 15:55 12/18/17 15:55 12/18/17 15:55 12/18/17 15:55 - Laboratory Laboratory results interpreted by me: 12/18/17 17:55 Urine Protein 30 H Urine Glucose (UA) 50 H Urine Urobilinogen 4.0 H Discharge - Discharge Clinical Impression: Stress incontinence, Bronchitis Condition: Good Disposition: HOME, SELF-CARE Instructions: Bronchitis With Bronchospasm (Wheezing) ([facility]), Cough Suppressant & Expectorant Medications Additional Instructions: Follow-up with your primary care physician. Your chest x-ray does not show any signs of pneumonia. Urinalysis does show any signs of infection. Will likely have stress incontinence recently due to having multiple wears the muscles in her pelvic region have weakened therefore when every you increase the pressure in your abdominal cavity you may leak a little bit a urine such as when he coughs when he tried to void when he tried to picker and sorter load and unload something heavy. Would recommend following up with her INSTRUMENT LENS INSPECTOR for this. Your chest x-ray does not show any signs of pneumonia but I do believe you have underlying bronchitis. We will treat this with steroids bronchodilator therapy and a medication called doxycycline. These take all his medications as prescribed. We will also recommend using the inhaler that we gave you here in the ER 2+ every 4 hours for next 5 days. Your medical issues were not resolving to contain this note. Please make sure that she had to stop smoking while taking these medications. I will also give you a medication called Tessalon pearls to help up with cough. You may also try honey her [id number] cough medications. Prescriptions: Benzonatate [Tessalon [place] 100 mg Capsule] 100 mg PO Q8HP PRN #40 cap PRN Reason: Albuterol Sulfate [Proair HFA Inhalation Aerosol 8.5 gm MDI] 2 puff IH Q4H PRN # 1 mdi PRN Reason: Doxycycline Hyclate 100 mg PO BID #14 capsule Prednisone [Deltasone 20 mg Tablet] 3 tab PO DAILY 4 Days tablet Referrals: BENJAMIN OBREGON MD [EMERITUS] - Follow up as needed
== END 2017-12-18 18:55 | disposition home or self-care (01) ==
LOC: ER 15:22
DX: N39.3 Stress incontinence (female) (male) (principal); J40 Bronchitis, not specified as acute or chronic; J44.9 Chronic obstructive pulmonary disease, unspecified; R05 Cough; R06.02 Shortness of breath; M54.5 Low back pain; F17.200 Nicotine dependence, unspecified, uncomplicated; I25.10 Atherosclerotic heart disease of native coronary artery without angina pectoris; I10 Essential (primary) hypertension; E11.9 Type 2 diabetes mellitus without complications; Z88.0 Allergy status to penicillin
CPT/HCPCS: 99283; 81001; 71046; J3490 ×2; J7512; J7620

== ENCOUNTER 2018-02-20 05:23 | Emergency (ER) | payer SELFPAY ==
--- NOTE | 2018-02-20 06:08 | ER Document Report ---
ED General - General Chief Complaint: Breathing Difficulty Stated Complaint: BREATHING PROBLEM Time Seen by Provider: 02/20/18 05:59 Notes: Patient is a 62-year-old female with CHF that presents to the emergency department for chief complaint of shortness of breath. Patient reports she has had progressively worsening shortness of breath of the last week, and was worse this evening so she decided come to the emergency department. She reports having dyspnea on exertion, and associated orthopnea, worse at night. She denies noting any worsening or leg swelling. Denies any calf pain or tenderness. She denies having any associated fevers, chills, night sweats, chest pain, nausea, vomiting or abdominal pain. She does report a nonproductive cough. She reports she is on Lasix 20 mg twice daily and she has not missed any doses. Past Medical History: CHF, hypertension, diabetes mellitus Past Surgical History: Denies pertinent surgical history Social History: Current tobacco smoker, denies alcohol or drug use Family History: Reviewed and noncontributory for presenting illness Allergies: Reviewed, see documented allergy list. REVIEW OF SYSTEMS: Unless otherwise stated in this report the patient's positive and negative responses for review of systems for constitutional, eyes, ENT, cardiovascular, respiratory, gastrointestinal, neurological, genitourinary, musculoskeletal, and integumentary systems and related systems to the presenting problem are either as stated in the HPI or were not pertinent or were negative for the symptoms and/or complaints related to the presenting medical problem. PHYSICAL EXAMINATION: Vital signs reviewed, nursing noted reviewed. GENERAL: Well-appearing, well-nourished and in no acute distress. HEAD: Atraumatic, normocephalic. EYES: Eyes appear normal, extraocular movements intact, sclera anicteric, conjunctiva are normal. ENT: nares patent, oropharynx clear without exudates. Moist mucous membranes. NECK: Normal range of motion, supple without lymphadenopathy LUNGS: Breath sounds clear to auscultation bilaterally and equal. No wheezes rales or rhonchi. HEART: Heart rate bradycardic, regular rhythm, no audible murmurs ABDOMEN: Soft, nontender, normoactive bowel sounds. No rebound, guarding, or rigidity. No masses appreciated. EXTREMITIES: Nontender, good range of motion, no pitting or edema. NEUROLOGICAL: No focal neurological deficits. Moves all extremities spontaneously Motor and sensory grossly intact on exam. PSYCH: Normal mood, normal affect. SKIN: Warm, Dry, normal turgor, no rashes or lesions noted on exposed skin TRAVEL OUTSIDE OF THE [place] IN LAST 30 DAYS: No - Related Data Allergies/Adverse Reactions: Penicillins Allergy (Verified 03/16/17 13:04) Past Medical History - Social History Smoking Status: Current Every Day Smoker Family History: DM, Hypertension, Malignancy. denies: Arthritis, CAD, COPD, CVA , Hyperlipidemia, Thyroid Disfunction - Past Medical History Cardiac Medical History: Reports: Hx Congestive Heart Failure, Hx Coronary Artery Disease, Hx Hypertension Denies: Hx Heart Attack Pulmonary Medical History: Reports: Hx COPD Denies: Hx Asthma, Hx Bronchitis, Hx Pneumonia Neurological Medical History: Denies: Hx Cerebrovascular Accident, Hx Seizures Endocrine Medical History: Reports: Hx Diabetes Mellitus Type 2 Renal/ Medical History: Denies: Hx Peritoneal Dialysis Musculoskeletal Medical History: Denies Hx Arthritis Past Surgical History: Reports: Hx Breast Surgery - Cyst removed from breast. Denies: Hx Hysterectomy - Immunizations Immunizations up to date: Yes Hx Diphtheria, Pertussis, Tetanus Vaccination: Yes Physical Exam - Vital signs Vitals: Temp Pulse Resp BP Pulse Ox 97.5 F 64 22 H 150/56 H 99 02/20/18 05:27 02/20/18 05:27 02/20/18 05:27 02/20/18 05:27 02/20/18 05:27 Course - Re-evaluation Re-evalutation: Patient seen and examined vital signs reviewed. Laboratory data and imaging were ordered as appropriate for the patient's presenting symptoms and complaint, with consideration of any critical or life threatening conditions that may be associated with their obtained history and exam as noted above. Results were reviewed when available and demonstrated mild cardiomegaly on chest x-ray, without evidence of exacerbation, no pulmonary edema, BNP was normal, troponin negative, EKG unchanged from prior, rest the patient's blood work was unremarkable The patient was re-evaluated and was stable, not hypoxic, in no distress Evaluation was most consistent with dyspnea, nonspecific, could possibly related to chronic worsening of heart failure, without acute exacerbation, versus deconditioning, advised to follow-up with her residential program coordinator, to have repeat echocardiogram, and increase her Lasix to 40 mg in the morning, for 1 week, patient was agreeable. Results were discussed with the patient at this point, after careful consideration I feel that that patient can be discharged from the emergency department, the patient was educated treatments and reasons to return to the emergency department based on their presumed diagnosis as noted above, they were advised to followup with a primary care physician in 2-3 days. Patient was agreeable to plan of care. *Note is created using voice recognition software and may contain spelling, syntax or grammatical errors. Laboratory 02/20/18 02/20/18 02/20/18 06:00 06:00 06:00 WBC 7.4 RBC 4.50 Hgb 12.3 Hct 36.4 MCV 81 MCH 27.3 MCHC 33.7 RDW 16.2 H Plt Count 280 Seg Neutrophils % 61.8 Lymphocytes % 27.4 Monocytes % 6.6 Eosinophils % 3.0 Basophils % 1.2 Absolute Neutrophils 4.6 Absolute Lymphocytes 2.0 Absolute Monocytes 0.5 Absolute Eosinophils 0.2 Absolute Basophils 0.1 Sodium 138.5 Potassium 4.3 Chloride 106 Carbon Dioxide 25 Anion Gap 8 BUN 13 Creatinine 0.62 Est GFR ( Amer) > 60 Est GFR (Non-Af Amer) > 60 Glucose 150 H Calcium 9.6 Total Bilirubin 0.6 Direct Bilirubin 0.2 Neonat Total Bilirubin Not Reportable Neonat Direct Bilirubin Not Reportable Neonat Indirect Bili Not Reportable AST 17 ALT 24 Alkaline Phosphatase 76 Troponin I < 0.012 NT-Pro-B Natriuret Pep 307 Total Protein 7.3 Albumin 4.0 Chest X-Ray 02/20/18 06:00 IMPRESSION: No evidence of acute intrathoracic disease. The cardiac silhouette appears enlarged. - Vital Signs Vital signs: Temp Pulse Resp BP Pulse Ox 97.5 F 64 21 H 111/60 98 02/20/18 05:27 02/20/18 05:27 02/20/18 07:01 02/20/18 07:01 02/20/18 07:01 - Laboratory Result Diagrams: 02/20/18 06:00 02/20/18 06:00 Laboratory results interpreted by me: 02/20/18 02/20/18 06:00 06:00 RDW 16.2 H Glucose 150 H - EKG Interpretation by Me Additional EKG results interpreted by me: EKG demonstrates sinus EKG demonstrates sinus bradycardia with a ventricular rate of 53 bpm, borderline left axis deviation, QTC 485 ms, no evidence of acute ischemia on this EKG, this is compared to prior EKG from 03/16/2017, without significant change. Discharge - Discharge Clinical Impression: Dyspnea Qualifiers: Dyspnea type: unspecified Qualified Code(s): R06.00 - Dyspnea, unspecified Condition: Stable Disposition: HOME, SELF-CARE Instructions: Dyspnea, Nonspecific ([facility]) Additional Instructions: Please return to the emergency department if you have any worsening, or concern of your symptoms. Please return to the emergency department if you develop chest pain, difficulty breathing, severe abdominal pain, or ongoing vomiting. Please follow-up with your primary care physician in 2-3 days and any other recommended physicians. If prescribed, take all medications as directed. If you have any questions or concerns do not hesitate to return the emergency department for evaluation. Please follow-up with your residential program coordinator, call for appointment today. TAKE LASIX 40MG IN THE MORNING, AND 20MG IN THE EVENING FOR 1 WEEK, THEN START TAKING 20MG TWICE A DAY AGAIN. Prescriptions: Furosemide [Lasix 40 mg Tablet] 40 mg PO QAM #7 tablet Referrals: JESSICA NAIR MD [Primary Care Provider] - Follow up in 3-5 days BENJAMIN OBREGON MD [EMERITUS] - Follow up tomorrow (CALL FOR APPOINTMENT WITH CARDIOLOGY. )
[2018-02-20 06:15] LABS: ABSOLUTE BASOPHILS # (AUTO) 0.1 10^3/uL (0.0-0.2); ABSOLUTE EOSINOPHILS # (AUTO) 0.2 10^3/uL (0.0-0.6); ABSOLUTE MONOCYTES (AUTO) 0.5 10^3/uL (0.1-1.4); ABSOLUTE NEUT (AUTO) 4.6 10^3/uL (1.7-8.2); BASOPHILS % (AUTO) 1.2 % (0-2); HEMATOCRIT 36.4 % (36.0-47.0); HEMOGLOBIN 12.3 g/dL (12.0-15.5); LYMPHOCYTES % (AUTO) 27.4 % (13-45); MEAN CORPUSCULAR HEMOGLOBIN 27.3 pg (27.0-33.4); MEAN CORPUSCULAR HGB CONC 33.7 g/dL (32.0-36.0); MEAN CORPUSCULAR VOLUME 81 fl (80-97); MONOCYTES % (AUTO) 6.6 % (3-13); PLATELET COUNT 280 10^3/uL (150-450); RED CELL DISTRIBUTION WIDTH 16.2 % (11.5-14.0); SEGMENTED NEUTROPHILS % (AUTO) 61.8 % (42-78); TOTAL CELLS COUNTED % (AUTO) 100 %; WHITE BLOOD COUNT 7.4 10^3/uL (4.0-10.5)
[2018-02-20 06:25] LABS: ALANINE AMINOTRANSFERASE 24 U/L (9-52); ALKALINE PHOSPHATASE 76 U/L (38-126); ANION GAP 8 (5-19); ASPARTATE AMINO TRANSFERASE 17 U/L (14-36); BILIRUBIN,DIRECT 0.2 mg/dL (0.0-0.4); BILIRUBIN,TOTAL 0.6 mg/dL (0.2-1.3); BLOOD UREA NITROGEN 13 mg/dL (7-20); CALCIUM 9.6 mg/dL (8.4-10.2); CARBON DIOXIDE 25 mmol/L (22-30); CHLORIDE 106 mmol/L (98-107); GLUCOSE 150 mg/dL (75-110); POTASSIUM 4.3 mmol/L (3.6-5.0); SODIUM 138.5 mmol/L (137-145); TOTAL PROTEIN 7.3 g/dL (6.3-8.2)
[2018-02-20 06:40] LABS: NT PRO BNP 307 pg/mL (5-900)
[2018-02-20 06:42] LABS: TROPONIN I < 0.012 ng/mL
--- NOTE | 2018-02-20 07:34 | RADIOLOGY REPORT (SQ) ---
EXAM DESCRIPTION: X-ray single view chest. CLINICAL HISTORY: 62 years Female, shortness of breath COMPARISON: None. TECHNIQUE: Single portable view of the chest performed on 02/20/2018 at 6:40 AM FINDINGS: The lungs are well expanded and are clear. There is no evidence of a pneumothorax. The cardiac silhouette appears enlarged and may be slightly accentuated by the portable technique. The mediastinal contours are normal. No acute osseous abnormality is identified. No focal soft tissue abnormalities are seen. Lines and tubes: None. IMPRESSION: No evidence of acute intrathoracic disease. The cardiac silhouette appears enlarged.
--- NOTE | 2018-02-20 08:10 | EKG REPORT ---
SEVERITY:- ABNORMAL ECG - SINUS RHYTHM LVH WITH SECONDARY REPOLARIZATION ABNORMALITY : Confirmed by: Tariq Caballero MD 20-Feb-2018 08:09:29
[2018-02-20 08:33] VITALS: BP 151/68
== END 2018-02-20 08:23 | disposition home or self-care (01) ==
LOC: ER 05:23
DX: R06.00 Dyspnea, unspecified (principal); R06.02 Shortness of breath; R06.01 Orthopnea; Z79.899 Other long term (current) drug therapy; F17.210 Nicotine dependence, cigarettes, uncomplicated; J44.9 Chronic obstructive pulmonary disease, unspecified; I50.9 Heart failure, unspecified; I25.10 Atherosclerotic heart disease of native coronary artery without angina pectoris; E11.9 Type 2 diabetes mellitus without complications; I10 Essential (primary) hypertension
CPT/HCPCS: 36415; 71045; 80053; 83880; 84484; 85025; 93005; 93010; 99285

== ENCOUNTER 2018-04-22 13:38 | Inpatient (IN) | payer SELFPAY ==
--- NOTE | 2018-04-22 16:17 | ER Document Report ---
ED Medical Screen (RME) - General Chief Complaint: Shortness Of Breath Stated Complaint: BREATHING PROBLEMS Time Seen by Provider: 04/22/18 16:09 Mode of Arrival: Ambulatory Information source: Patient, [facility] Records Notes: 62-year-old female with congestive heart failure, coronary artery disease, hypertension, type 2 diabetes, COPD presents with 4 days of epigastric abdominal pain and associated shortness of breath. I have greeted and performed a rapid initial assessment of this patient. A comprehensive ED assessment and evaluation of the patient, analysis of test results and completion of medical decision making process we will be contacted by additional ED providers. PHYSICAL EXAMINATION: Vital signs reviewed-hypertensive GENERAL: Well-appearing, well-nourished and in no acute distress. LUNGS: No respiratory distress Musculoskeletal: Normal range of motion NEUROLOGICAL: Normal speech, normal gait. PSYCH: Normal mood, normal affect. SKIN: Warm, Dry, normal turgor, no rashes or lesions noted. TRAVEL OUTSIDE OF THE [place] IN LAST 30 DAYS: No - HPI Onset: Other Quality of pain: Achy Associated Symptoms: Abdominal pain, Shortness of breath. denies: Chest pain Exacerbated by: Denies Relieved by: Denies Similar symptoms previously: Yes Recently seen / treated by doctor: No - Related Data Smoking: Secondhand, Cigarettes Drug Abuse: None Allergies/Adverse Reactions: Penicillins Allergy (Verified 04/22/18 13:41) Past Medical History - Social History Chew tobacco use (# tins/day): No Frequency of alcohol use: None Drug Abuse: None - Past Medical History Cardiac Medical History: Reports: Hx Congestive Heart Failure, Hx Coronary Artery Disease, Hx Hypertension Denies: Hx Heart Attack Pulmonary Medical History: Reports: Hx COPD Denies: Hx Asthma, Hx Bronchitis, Hx Pneumonia Neurological Medical History: Denies: Hx Cerebrovascular Accident, Hx Seizures Endocrine Medical History: Reports: Hx Diabetes Mellitus Type 2 Renal/ Medical History: Denies: Hx Peritoneal Dialysis Musculoskeltal Medical History: Denies Hx Arthritis Past Surgical History: Reports: Hx Breast Surgery - Cyst removed from breast. Denies: Hx Hysterectomy - Immunizations Immunizations up to date: Yes Hx Diphtheria, Pertussis, Tetanus Vaccination: Yes Physical Exam - Vital signs Vitals: Temp Pulse BP Pulse Ox 97.7 F 64 157/67 H 97 04/22/18 13:47 04/22/18 13:47 04/22/18 13:47 04/22/18 13:47 Course - Vital Signs Vital signs: Temp Pulse Resp BP Pulse Ox 97.7 F 64 157/67 H 97 04/22/18 13:47 04/22/18 13:47 04/22/18 13:47 04/22/18 13:47 Doctor's Discharge - Discharge Referrals: JESSICA NAIR MD [Primary Care Provider] - Follow up as needed
[2018-04-22] MEDS ORDERED: IPRATROPIUM/ALBUTEROL 0.5-2.5 MG/3 ML AMPUL NEB ONE (16:18)
[2018-04-22 17:03] LABS: ABSOLUTE EOSINOPHILS # (AUTO) 0.2 10^3/uL (0.0-0.6); ABSOLUTE MONOCYTES (AUTO) 0.6 10^3/uL (0.1-1.4); BASOPHILS % (AUTO) 0.6 % (0-2); EOSINOPHILS % (AUTO) 2.9 % (0-6); HEMATOCRIT 38.6 % (36.0-47.0); HEMOGLOBIN 12.5 g/dL (12.0-15.5); LYMPHOCYTES % (AUTO) 29.8 % (13-45); MEAN CORPUSCULAR HEMOGLOBIN 26.8 pg (27.0-33.4); MEAN CORPUSCULAR HGB CONC 32.3 g/dL (32.0-36.0); MEAN CORPUSCULAR VOLUME 83 fl (80-97); MONOCYTES % (AUTO) 8.1 % (3-13); PLATELET COUNT 276 10^3/uL (150-450); RED BLOOD COUNT 4.65 10^6/uL (3.72-5.28); SEGMENTED NEUTROPHILS % (AUTO) 58.6 % (42-78); TOTAL CELLS COUNTED % (AUTO) 100 %; WHITE BLOOD COUNT 6.8 10^3/uL (4.0-10.5)
--- NOTE | 2018-04-22 17:09 | RADIOLOGY REPORT (SQ) ---
EXAM DESCRIPTION: CHEST 2 VIEWS COMPLETED DATE/TIME: 04/22/2018 4:34 pm REASON FOR STUDY: Short of breath COMPARISON: None. EXAM PARAMETERS: NUMBER OF VIEWS: two views TECHNIQUE: Digital Frontal and Lateral radiographic views of the chest acquired. RADIATION DOSE: NA LIMITATIONS: none FINDINGS: LUNGS AND PLEURA: No opacities, masses or pneumothorax. There is some blunting of the lef t costophrenic angle suggesting a tiny left pleural effusion. Linear densities are identified which may represent a tiny amount of fluid in the fissures. MEDIASTINUM AND HILAR STRUCTURES: No masses or contour abnormalities. HEART AND VASCULAR STRUCTURES: Cardiac silhouette remains enlarged. There is mild pulmonary vascular congestion BONES: No acute findings. HARDWARE: None in the chest. OTHER: No other significant finding. IMPRESSION: Cardiomegaly with mild pulmonary vascular congestion. Tiny left pleural effusion and th ere are linear density suggesting a tiny amount of fluid in the fissures. TECHNICAL DOCUMENTATION: JOB ID: [id number] [employer]- All Rights Reserved Reading location - IP/workstation name: [email or web address]
[2018-04-22 17:19] LABS: APPEARANCE,URINE SLIGHTLY-CLOUDY; BILIRUBIN,URINE NEGATIVE (NEGATIVE); COLOR,URINE AMBER; GLUCOSE, URINE NEGATIVE (NEGATIVE); KETONES,URINE NEGATIVE (NEGATIVE); LEUKOCYTE ESTERASE,URINE NEGATIVE (NEGATIVE); NITRITE,URINE NEGATIVE (NEGATIVE); PROTEIN,URINE >=500 mg/dL (NEGATIVE); URINE SPECIFIC GRAVITY 1.017
[2018-04-22 17:20] LABS: ALANINE AMINOTRANSFERASE 15 U/L (9-52); ALBUMIN 4.2 g/dL (3.5-5.0); ALKALINE PHOSPHATASE 82 U/L (38-126); ANION GAP 7 (5-19); ASPARTATE AMINO TRANSFERASE 15 U/L (14-36); BILIRUBIN,DIRECT 0.5 mg/dL (0.0-0.4); BILIRUBIN,TOTAL 0.9 mg/dL (0.2-1.3); BLOOD UREA NITROGEN 14 mg/dL (7-20); CALCIUM 9.3 mg/dL (8.4-10.2); CARBON DIOXIDE 31 mmol/L (22-30); CHLORIDE 105 mmol/L (98-107); GLUCOSE 130 mg/dL (75-110); LIPASE 78.2 U/L (23-300); POTASSIUM 3.4 mmol/L (3.6-5.0); SODIUM 143.2 mmol/L (137-145); TOTAL PROTEIN 7.5 g/dL (6.3-8.2)
[2018-04-22 17:31] LABS: NT PRO BNP 627 pg/mL (5-900)
[2018-04-22 17:32] LABS: TROPONIN I < 0.012 ng/mL
[2018-04-22] MEDS ORDERED: FUROSEMIDE INJ/PF 20 MG/2 ML SDV IV ONE (17:47)
--- NOTE | 2018-04-22 18:41 | ER Document Report ---
ED General - General Chief Complaint: Shortness Of Breath Stated Complaint: BREATHING PROBLEMS Time Seen by Provider: 04/22/18 16:09 Mode of Arrival: Ambulatory Notes: 62-year-old female patient emergency department chief complaint of worsening shortness of breath. Patient states that she has congestive heart failure, hypertension, diabetes. Has not been able to get her medical appointments because she does not have insurance. Is about to run out of all of her medications. Has not run out of her medications however she states that over the last several weeks she has had increasing shortness of breath mostly noticing it at night when she is lying down. Feels like she cannot breathe. Was seen here 2 months ago and diagnosed with "bronchitis". She does smoke so likely has some chronic bronchitis/COPD. Does not drink alcohol. States that she just feels like she is getting worse and worse. Also complaining of worsening eczema. TRAVEL OUTSIDE OF THE [place] IN LAST 30 DAYS: No - HPI Onset/Duration: Gradual, Constant Quality of pain: Dull Severity: Moderate Pain Level: 1 Associated symptoms: Nonproductive cough, Shortness of breath Exacerbated by: Supine, Movement, Walking Relieved by: Denies - Related Data Allergies/Adverse Reactions: Penicillins Allergy (Verified 04/22/18 13:41) Past Medical History - General Information source: Patient, [facility] Records - Social History Smoking Status: Current Every Day Smoker Chew tobacco use (# tins/day): No Frequency of alcohol use: None Drug Abuse: None Family History: DM, Hypertension, Malignancy. denies: Arthritis, CAD, COPD, CVA , Hyperlipidemia, Thyroid Disfunction Patient has suicidal ideation: No Patient has homicidal ideation: No - Past Medical History Cardiac Medical History: Reports: Hx Congestive Heart Failure, Hx Coronary Artery Disease, Hx Hypertension Denies: Hx Heart Attack Pulmonary Medical History: Reports: Hx COPD Denies: Hx Asthma, Hx Bronchitis, Hx Pneumonia Neurological Medical History: Denies: Hx Cerebrovascular Accident, Hx Seizures Endocrine Medical History: Reports: Hx Diabetes Mellitus Type 2 Renal/ Medical History: Denies: Hx Peritoneal Dialysis Musculoskeletal Medical History: Denies Hx Arthritis Past Surgical History: Reports: Hx Breast Surgery - Cyst removed from breast. Denies: Hx Hysterectomy - Immunizations Immunizations up to date: Yes Hx Diphtheria, Pertussis, Tetanus Vaccination: Yes Review of Systems - Review of Systems Notes: Constitutional: denies: Chills, Diaphoresis, Fever, Malaise, Weakness EENT: denies: Eye discharge, Blurred vision, Tearing, Double vision, Nose congestion, Nose discharge, Throat swelling, Mouth pain Cardiovascular: denies: Palpitations, Heart racing. Complaining of some mild chest pain with dyspnea and orthopnea Respiratory: Complaining of shortness of breath, orthopnea, dyspnea on exertion. Gastrointestinal: denies: Abdominal pain, Diarrhea, Nausea, Vomiting, Black stools, bright red blood in stool Genitourinary: denies: Burning, Dysuria, Discharge, Frequency, Flank pain, Hematuria Musculoskeletal: denies: Joint pain, Joint swelling, Muscle pain, Muscle stiffness, back pain Hematologic/Lymphatic: denies: Anemia, Easy bleeding, Easy bruising, Blood clots Neurological/Psychological: denies: Confusion, Dementia, Depression, Loss of consciousness Skin: No lesions, no masses, no skin breakdown, no abscesses Physical Exam - Vital signs Vitals: Temp Pulse BP Pulse Ox 97.7 F 64 157/67 H 97 04/22/18 13:47 04/22/18 13:47 04/22/18 13:47 04/22/18 13:47 Interpretation: Normal - General General appearance: Appears well, Alert - HEENT Head: Normocephalic, Atraumatic Eyes: Normal Pupils: PERRL - Respiratory Respiratory status: No respiratory distress Chest status: Nontender Breath sounds: Normal Chest palpation: Normal - Cardiovascular Rhythm: Regular Heart sounds: Normal auscultation Murmur: No - Abdominal Inspection: Normal Distension: No distension Bowel sounds: Normal Tenderness: Nontender Organomegaly: No organomegaly - Back Back: Normal, Nontender - Extremities General upper extremity: Normal inspection, Nontender, Normal color, Normal ROM , Normal temperature General lower extremity: Normal inspection, Nontender, Edema - Trace edema bilateral lower extremities, Normal color, Normal ROM, Normal temperature. No: Jose's sign - Neurological Neuro grossly intact: Yes Cognition: Normal Orientation: AAOx4 [place] Coma Scale Eye Opening: Spontaneous [place] Coma Scale Verbal: Oriented [place] Coma Scale Motor: Obeys Commands [place] Coma Scale Total: 15 Speech: Normal Motor strength normal: LUE, RUE, LLE, RLE Sensory: Normal - Psychological Associated symptoms: Normal affect, Normal mood - Skin Skin Temperature: Warm Skin Moisture: Dry Skin Color: Normal Course - Re-evaluation Re-evalutation: 04/22/18 19:21 Patient with worsening chest x-ray showing pulmonary vascular congestion trace fluid in the fissures. She has had this on previous chest x-rays. Blood pressure is a little high. Troponin is negative. BNP is higher than it has ever been but still within the normal range. Patient would likely benefit from some aggressive IV Lasix and potential admit. We will discussed the case with hospitalist. 04/22/18 19:22 Laboratory 04/22/18 04/22/18 04/22/18 16:20 16:42 16:42 WBC 6.8 RBC 4.65 Hgb 12.5 Hct 38.6 MCV 83 MCH 26.8 L MCHC 32.3 RDW 17.0 H Plt Count 276 Seg Neutrophils % 58.6 Lymphocytes % 29.8 Monocytes % 8.1 Eosinophils % 2.9 Basophils % 0.6 Absolute Neutrophils 4.0 Absolute Lymphocytes 2.0 Absolute Monocytes 0.6 Absolute Eosinophils 0.2 Absolute Basophils 0.0 Sodium 143.2 Potassium 3.4 L Chloride 105 Carbon Dioxide 31 H Anion Gap 7 BUN 14 Creatinine 0.65 Est GFR ( Amer) > 60 Est GFR (Non-Af Amer) > 60 Glucose 130 H Calcium 9.3 Total Bilirubin 0.9 Direct Bilirubin 0.5 H Neonat Total Bilirubin Not Reportable Neonat Direct Bilirubin Not Reportable Neonat Indirect Bili Not Reportable AST 15 ALT 15 Alkaline Phosphatase 82 Troponin I NT-Pro-B Natriuret Pep Total Protein 7.5 Albumin 4.2 Lipase 78.2 Urine Color MARLYS Urine Appearance SLIGHTLY-CLOUDY Urine pH 6.0 Ur Specific Hewitt 1.017 Urine Protein >=500 H Urine Glucose (UA) NEGATIVE Urine Ketones NEGATIVE Urine Blood NEGATIVE Urine Nitrite NEGATIVE Urine Bilirubin NEGATIVE Urine Urobilinogen 4.0 H Ur Leukocyte Esterase NEGATIVE Urine WBC (Auto) 1 Urine RBC (Auto) 2 Squamous Epi Cells Auto 3 Urine Mucus (Auto) MANY Urine Ascorbic Acid NEGATIVE 04/22/18 16:42 WBC RBC Hgb Hct MCV MCH MCHC RDW Plt Count Seg Neutrophils % Lymphocytes % Monocytes % Eosinophils % Basophils % Absolute Neutrophils Absolute Lymphocytes Absolute Monocytes Absolute Eosinophils Absolute Basophils Sodium Potassium Chloride Carbon Dioxide Anion Gap BUN Creatinine Est GFR ( Amer) Est GFR (Non-Af Amer) Glucose Calcium Total Bilirubin Direct Bilirubin Neonat Total Bilirubin Neonat Direct Bilirubin Neonat Indirect Bili AST ALT Alkaline Phosphatase Troponin I < 0.012 NT-Pro-B Natriuret Pep 627 Total Protein Albumin Lipase Urine Color Urine Appearance Urine pH Ur Specific Hewitt Urine Protein Urine Glucose (UA) Urine Ketones Urine Blood Urine Nitrite Urine Bilirubin Urine Urobilinogen Ur Leukocyte Esterase Urine WBC (Auto) Urine RBC (Auto) Squamous Epi Cells Auto Urine Mucus (Auto) Urine Ascorbic Acid Chest X-Ray 04/22/18 16:15 IMPRESSION: Cardiomegaly with mild pulmonary vascular congestion. Tiny left pleural effusion and there are linear density suggesting a tiny amount of fluid in the fissures. - Vital Signs Vital signs: Temp Pulse Resp BP Pulse Ox 97.7 F 64 157/67 H 97 04/22/18 13:47 04/22/18 13:47 04/22/18 13:47 04/22/18 13:47 - Laboratory Result Diagrams: 04/22/18 16:42 04/22/18 16:42 Laboratory results interpreted by me: 04/22/18 04/22/18 04/22/18 16:20 16:42 16:42 MCH 26.8 L RDW 17.0 H Potassium 3.4 L Carbon Dioxide 31 H Glucose 130 H Direct Bilirubin 0.5 H Urine Protein >=500 H Urine Urobilinogen 4.0 H - EKG Interpretation by Nv EKG shows normal: Intervals, QRS Complexes, ST-T Waves Voltage: Consistant with LVH Discharge - Discharge Clinical Impression: Congestive heart failure Qualifiers: Heart failure type: unspecified Heart failure chronicity: unspecified Qualified Code(s): I50.9 - Heart failure, unspecified Condition: Good Disposition: ADMITTED INPATIENT Admitting Provider: Hospitalist - [facility] Unit Admitted: Telemetry Referrals: JESSICA ANIR MD [Primary Care Provider] - Follow up as needed
--- NOTE | 2018-04-22 18:58 | EKG REPORT ---
SEVERITY:- ABNORMAL ECG - SINUS RHYTHM LEFT VENTRICULAR HYPERTROPHY BORDERLINE T ABNORMALITIES, INFERIOR LEADS : Confirmed by: Tariq Caballero MD 22-Apr-2018 18:56:57
[2018-04-22] MEDS ORDERED: ONDANSETRON HCL INJ/PF 4 MG/2 ML SDV IV PRN (19:50)
[2018-04-22] MEDS ORDERED: MAG HYDROX/AL HYDROX/SIMETH SUSP 30 ML UDCUP PO PRN (19:50)
[2018-04-22] MEDS ORDERED: ONDANSETRON 4 MG TAB.RAPDIS PO PRN (19:50)
[2018-04-22] MEDS ORDERED: MAGNESIUM HYDROXIDE SUSP 30 ML UDCUP PO PRN (19:50)
[2018-04-22] MEDS ORDERED: ACETAMINOPHEN 650 MG SUPP.RECT PR PRN (20:01)
[2018-04-22] MEDS ORDERED: ACETAMINOPHEN 325 MG TABLET PO PRN (20:01)
[2018-04-22] MEDS ORDERED: MORPHINE SULFATE 10 MG/ML INJ IV PRN ×3 (20:01)
[2018-04-22] MEDS ORDERED: ALBUTEROL SULFATE 0.083% NEB 2.5 MG/3 ML AMPUL NEB PRN (20:01)
[2018-04-22] MEDS ORDERED: INSULIN LISPRO 100 UNIT/ML 3 ML VIAL SUBCUT PRN (20:10)
[2018-04-22] MEDS ORDERED: GLUCAGON,HUMAN RECOMB 1 MG INJ IM PRN (20:10)
[2018-04-22] MEDS ORDERED: DEXTROSE 50%-WATER 25 GM/50 ML DISP.SYRIN IV PRN ×2 (20:10)
[2018-04-22] MEDS ORDERED: DEXTROSE 40% GEL 15 GM TUBE PO PRN ×2 (20:10)
--- NOTE | 2018-04-22 20:46 | PDOC H&P ---
History of Present Illness Admission Date/PCP: 04/22/18 19:53 JESSICA NAIR MD Patient complains of: Dyspnea with orthopnea History of Present Illness: JARETT REED is a 62 year old female who presented to the emergency room with a 1 month history of gradually worsening dyspnea on exertion and orthopnea. She admits that her dyspnea is now a moderate to severe fullness sensation in her anterior chest and her orthopnea is quite severe and prevents her from sleeping well. She further admits similar prior episodes in the past with exacerbations of her congestive heart failure but none were quite this severe. She has not identified any other aggravating or ameliorating factors for her dyspnea. She admits cardiac risk factors of long-standing tobacco abuse , hypertension and diabetes mellitus type 2. In the emergency room she was found to have negative cardiac enzymes and her EKG showed no evidence for acute myocardial injury or ischemia. Because of her multiple risk factors she was admitted for further evaluation treatment and improvement in the control of her hypertension and congestive heart failure. Past Medical History Cardiac Medical History: Reports: Congestive Heart Failure, Coronary Artery Disease, Hypertension Denies: Myocardial Infarction Pulmonary Medical History: Reports: Chronic Obstructive Pulmonary Disease (COPD) Denies: Asthma, Bronchitis, Pneumonia EENT Medical History: Reports: None Neurological Medical History: Denies: Seizures Endocrine Medical History: Reports: Diabetes Mellitus Type 2, Obesity Denies: Diabetes Mellitus Type 1, Hyperthyroidism, Hypothyroidism Renal/ Medical History: Denies: Chronic Kidney Disease, Nephrolithiasis Malignancy Medical History: Reports: None GI Medical History: Denies: Cirrhosis, Hepatitis Musculoskeltal Medical History: Denies: Arthritis Skin Medical History: Denies: Eczema, Psoriasis Psychiatric Medical History: Reports: Tobacco Dependency Denies: Alcohol Dependency, Substance Abuse Traumatic Medical History: Reports: None Hematology: Denies: Anemia, Bleeding Tendencies Infectious Medical History: Reports: None Past Surgical History Past Surgical History: Denies: Hysterectomy Social History Information Source: Patient Lives with: Alone Smoking Status: Current Every Day Smoker Frequency of Alcohol Use: None Hx Recreational Drug Use: No Drugs: None Hx Prescription Drug Abuse: No - Advance Directive Resuscitation Status: Full Code Surrogate healthcare decision maker:: Daughter Family History Family History: DM, Hypertension, Malignancy. denies: Arthritis, CAD, COPD, CVA , Hyperlipidemia, Thyroid Disfunction Parental Family History Reviewed: Yes Children Family History Reviewed: No Sibling(s) Family History Reviewed.: Yes Medication/Allergy Home Medications: Aspirin [Ecotrin 81 mg EC Tablet] 81 mg PO DAILY 04/22/18 Carvedilol [Coreg 25 mg Tablet] 1 tab PO DAILY 04/22/18 Furosemide [Lasix 20 mg Tablet] 20 mg PO BID 04/22/18 Lisinopril [Prinivil 5 mg Tablet] 5 mg PO DAILY 04/22/18 Allergies/Adverse Reactions: Penicillins Allergy (Verified 04/22/18 13:41) Review of Systems Constitutional: ABSENT: chills, fever(s) Eyes: ABSENT: visual disturbances, other - Ocular pain Ears: ABSENT: hearing changes, other - Ear pain Nose, Mouth, and Throat: ABSENT: mouth pain, sore throat Cardiovascular: PRESENT: as per HPI, chest pain - No true chest pain just a sensation of fullness with dyspnea., dyspnea on exertion, orthropnea. ABSENT: edema, palpitations Respiratory: PRESENT: as per HPI, dyspnea. ABSENT: cough Gastrointestinal: ABSENT: abdominal pain, constipation, diarrhea, nausea, vomiting Genitourinary: ABSENT: dysuria, hematuria Musculoskeletal: ABSENT: back pain, joint swelling Integumentary: ABSENT: pruritus, rash Neurological: ABSENT: confusion, convulsions, memory loss, syncope Psychiatric: ABSENT: anxiety, depression Endocrine: ABSENT: cold intolerance, heat intolerance Hematologic/Lymphatic: ABSENT: easy bleeding, easy bruising Physical Exam Vital Signs: Temp Pulse Resp BP Pulse Ox 97.7 F 64 157/67 H 97 04/22/18 13:47 04/22/18 13:47 04/22/18 13:47 04/22/18 13:47 General appearance: PRESENT: no acute distress, cooperative, obese Head exam: PRESENT: atraumatic, normocephalic Eye exam: PRESENT: EOMI. ABSENT: scleral icterus Ear exam: PRESENT: normal external ear exam. ABSENT: bleeding, drainage Mouth exam: PRESENT: dry mucosa, neck supple Neck exam: ABSENT: JVD, thyromegaly, tracheal deviation Respiratory exam: PRESENT: decreased breath sounds - Mildly decreased breath sounds throughout all vidal, prolonged expiratory phas - Mildly prolonged expiratory phase throughout all vidal, rales - Bibasilar fine rales on auscultation, symmetrical, unlabored Cardiovascular exam: PRESENT: gallop - Faint S4 gallop is noted, RRR. ABSENT: clicks, diastolic murmur, rubs, systolic murmur Pulses: PRESENT: normal radial pulses, normal dorsalis pedis pul Vascular exam: PRESENT: normal capillary refill. ABSENT: pallor GI/Abdominal exam: PRESENT: normal bowel sounds, soft Rectal exam: PRESENT: deferred Extremities exam: ABSENT: joint swelling, pedal edema Musculoskeletal exam: PRESENT: full ROM, normal inspection Neurological exam: PRESENT: alert, oriented to person, oriented to place, oriented to time, oriented to situation, CN II-XII grossly intact. ABSENT: motor sensory deficit Psychiatric exam: PRESENT: appropriate affect, normal mood Skin exam: PRESENT: dry, intact, rash - Mildly erythematous and scaly areas with evidence of excoriation consistent with moderate eczema on all extremities (lower greater than upper) and the torso primarily involving the abdomen., warm. ABSENT: jaundice, urticaria Results Impressions: Chest X-Ray 04/22/18 16:15 IMPRESSION: Cardiomegaly with mild pulmonary vascular congestion. Tiny left pleural effusion and there are linear density suggesting a tiny amount of fluid in the fissures. Assessment & Plan - Diagnosis (1) Congestive heart failure Qualifiers: Heart failure type: unspecified Heart failure chronicity: unspecified Qualified Code(s): I50.9 - Heart failure, unspecified Is this a current diagnosis for this admission?: Yes Plan: Patient will be continued on her current antihypertensive/congestive heart failure medication regiment with the exception of the use of intravenous Lasix to better achieve diuresis. She will undergo a echocardiogram tomorrow to evaluate her congestive failure and cardiac status. Cardiac enzymes will be obtained in a serial basis as will EKG's to rule out an acute myocardial ischemic or injury because of her congestive failure. She will also have morphine sulfate administered intravenously on a pain based sliding scale should she develop chest discomfort. (2) Hypertension Qualifiers: Hypertension type: essential hypertension Qualified Code(s): I10 - Essential (primary) hypertension Is this a current diagnosis for this admission?: Yes Plan: Patient will be continued on her prehospital antihypertensive regimen with changes made only as required for better control of her hypertension and congestive heart failure. (3) Obesity (BMI 30.0-34.9) Is this a current diagnosis for this admission?: Yes Plan: Patient is encouraged to consider weight loss and lifestyle changes that would be significantly more healthy. A dietary consult will be obtained to assist her in beginning this lifelong journey. (4) Diabetes mellitus type 2 in obese Is this a current diagnosis for this admission?: Yes Plan: Patient will be continued on her pre-hospital diabetic therapy and she will be given a carb for low-cholesterol low-sodium diabetic diet. Hemoglobin A1c will be checked to evaluate her current therapy. (5) COPD (chronic obstructive pulmonary disease) Is this a current diagnosis for this admission?: Yes Plan: Patient will use albuterol nebulizers on a as needed basis as well as a Xopenex and Atrovent nebulizer 3 times daily and Pulmicort via nebulizer twice daily. (6) Tobacco use disorder, moderate, dependence Is this a current diagnosis for this admission?: Yes Plan: Patient is advised to discontinue use of tobacco as soon as possible. Smoking cessation counseling is provided and a nicotine replacement patch is prescribed on an as-needed basis. - Time Time Spent: 30 to 50 Minutes Critical Time spent with patient: Less than 15 minutes Smoking Cessation Education: 3 to 10 minutes Medications reviewed and adjusted accordingly: Yes Anticipated discharge: Home - Inpatient Certification Based on my medical assessment, after consideration of the patient's comorbidities, presenting symptoms, or acuity I expect that the services needed warrant INPATIENT care.: Yes I certify that my determination is in accordance with my understanding of Medicare's requirements for reasonable and necessary INPATIENT services [42 CFR 412.3e].: Yes Medical Necessity: Failure to Improve With Outpatient Therapy, Need Close Monitoring Due to Risk of Patient Decompensation, Need For Continuous Telemetry Monitoring, Risk of Complication if Not Cared For in Hospital
[2018-04-22] MEDS ORDERED: NICOTINE 21 MG/24 HR PATCH.TD24 TD PRN (20:47)
[2018-04-22] MEDS: FUROSEMIDE INJ/PF 40 MG/4 ML SDV IV SCH (21:15)
[2018-04-22] MEDS: FAMOTIDINE 20 MG TABLET PO SCH (21:15)
[2018-04-22] MEDS: HEPARIN SOD (PORCINE) 5,000 UNIT/ML 1 ML SYRINGE SUBCUT SCH (21:16)
[2018-04-22] MEDS ORDERED: CARVEDILOL 6.25 MG TABLET PO SCH (22:00)
[2018-04-22 23:32] LABS: CREATINE KINASE MB 0.28 ng/mL (<4.55)
[2018-04-22 23:36] LABS: TROPONIN I < 0.012 ng/mL
[2018-04-23] MEDS: LEVALBUTEROL HCL NEB 1.25 MG/3 ML AMPUL NEB SCH ×4 (01:15→23:45)
[2018-04-23] MEDS: IPRATROPIUM BROMIDE 0.02% NEB 0.5 MG/2.5 ML AMPUL NEB SCH ×4 (01:15→23:45)
[2018-04-23] MEDS: HEPARIN SOD (PORCINE) 5,000 UNIT/ML 1 ML SYRINGE SUBCUT SCH ×3 (05:46→22:37)
[2018-04-23 05:53] LABS: ABSOLUTE BASOPHILS # (AUTO) 0.1 10^3/uL (0.0-0.2); ABSOLUTE EOSINOPHILS # (AUTO) 0.3 10^3/uL (0.0-0.6); ABSOLUTE MONOCYTES (AUTO) 0.6 10^3/uL (0.1-1.4); ABSOLUTE NEUT (AUTO) 4.4 10^3/uL (1.7-8.2); EOSINOPHILS % (AUTO) 3.5 % (0-6); HEMATOCRIT 35.2 % (36.0-47.0); HEMOGLOBIN 11.7 g/dL (12.0-15.5); LYMPHOCYTES % (AUTO) 27.4 % (13-45); MEAN CORPUSCULAR HGB CONC 33.1 g/dL (32.0-36.0); MEAN CORPUSCULAR VOLUME 81 fl (80-97); MONOCYTES % (AUTO) 7.9 % (3-13); PLATELET COUNT 248 10^3/uL (150-450); RED BLOOD COUNT 4.33 10^6/uL (3.72-5.28); RED CELL DISTRIBUTION WIDTH 16.8 % (11.5-14.0); SEGMENTED NEUTROPHILS % (AUTO) 60.2 % (42-78); TOTAL CELLS COUNTED % (AUTO) 100 %; WHITE BLOOD COUNT 7.3 10^3/uL (4.0-10.5)
[2018-04-23 06:10] LABS: ANION GAP 7 (5-19); BLOOD UREA NITROGEN 13 mg/dL (7-20); CALCIUM 9.6 mg/dL (8.4-10.2); CARBON DIOXIDE 30 mmol/L (22-30); CHLORIDE 105 mmol/L (98-107); CREATINE KINASE 34 U/L (30-135); GLUCOSE 119 mg/dL (75-110); POTASSIUM 3.6 mmol/L (3.6-5.0); SODIUM 141.7 mmol/L (137-145); TRIGLYCERIDES 91 mg/dL (<150)
[2018-04-23 06:21] LABS: CREATINE KINASE MB 0.23 ng/mL (<4.55); DIRECT LDL 118 mg/dL (<100)
[2018-04-23 06:24] LABS: TROPONIN I < 0.012 ng/mL
[2018-04-23 06:30] LABS: FREE T3 3.55 pg/mL (2.77-5.27); FREE T4 (FREE THYROXINE) 1.45 ng/dL (0.78-2.19)
[2018-04-23 06:44] LABS: THYROID STIMULATING HORMONE 2.94 uIU/mL (0.47-4.68)
--- NOTE | 2018-04-23 07:47 | EKG REPORT ---
SEVERITY:- ABNORMAL ECG - SINUS RHYTHM LVH WITH SECONDARY REPOLARIZATION ABNORMALITY : Confirmed by: Tariq Caballero MD 23-Apr-2018 07:46:54
[2018-04-23 09:34] LABS: CREATINE KINASE MB < 0.22 ng/mL (<4.55); TROPONIN I < 0.012 ng/mL
[2018-04-23] MEDS: BUDESONIDE NEB 0.5 MG/2 ML AMPUL NEB SCH ×2 (09:41→20:40)
[2018-04-23] MEDS: FUROSEMIDE INJ/PF 40 MG/4 ML SDV IV SCH ×2 (10:23→22:44)
[2018-04-23] MEDS: DOCUSATE SODIUM 100 MG CAPSULE PO SCH ×2 (10:23→17:01)
[2018-04-23] MEDS: ASPIRIN 81 MG TABLET, ENT COATED PO SCH (10:23)
[2018-04-23] MEDS: CARVEDILOL 12.5 MG TABLET PO SCH ×2 (10:23→22:44)
[2018-04-23] MEDS: LISINOPRIL 5 MG TABLET PO SCH (10:23)
[2018-04-23] MEDS: METFORMIN HCL 500 MG TABLET PO SCH ×2 (10:23→17:01)
[2018-04-23] MEDS: FAMOTIDINE 20 MG TABLET PO SCH ×2 (10:23→22:44)
[2018-04-23] MEDS: HYDROCORTISONE 1% OINTMENT 28.35 GM TP SCH ×2 (10:24→17:01)
--- NOTE | 2018-04-23 19:33 | Progress Note ---
Provider Note Provider Note: This is 62 years old black female patient with history of congestive heart failure she is admitted for CHF exacerbation. Patient seen and examined at bedside and accepted her as my patient.
--- NOTE | 2018-04-23 19:46 | XCELERA REPORT ---
[address] [address] Transthoracic Echocardiogram Report Name: JARETT REED Age: 62 yrs Gender: Female : 1955 Patient Status: Inpatient Patient Location: [place] [address]^A Study Date: 04/22/2018 08:23 PM Height: 66 in Weight: 215 lb BSA: 2.1 m2 Procedure: A two-dimensional transthoracic echocardiogram with color flow Doppler was performed. Study Quality: Technically suboptimal. The study was technically difficult with many images being suboptimal in quality. Reason For Study: Acute on chronic CHF History: Acute on chronic CHF. Ordering Physician: RENAE HATCH Performed By: Mary Granger Interpretation Summary The left ventricle is moderately to severly dilated. There is normal left ventricular wall thickness. LV EF is 35% Left ventricular systolic function is moderately reduced. There is moderate global hypokinesis of the left ventricle. There is no thrombus. The right ventricle is not well visualized secondary to technical limitations Right atrium not well visualized secondary to technical limitations The left atrium is moderately dilated. There is no evidence of mitral valve prolapse. There is no vegetation seen on the mitral valve. There is no mitral valve stenosis. There is a moderate amount of mitral regurgitation There is no aortic valvular vegetation. There is no LVOT obstruction. There is aortic sclerosis without aortic stenosis. No aortic regurgitation is present. There is no tricuspid stenosis. There is a mild amount of tricuspid regurgitation There is mild pulmonary hypertension by echo RVSP is 36 mm of Hg , with RA mean of 10. There is no pulmonic valvular stenosis. There is a trace amount of pulmonic regurgitation There is no pericardial effusion. MMode/2D Measurements & Calculations RVDd: 2.7 cm LVIDd: 7.4 cm FS: 22.5 % Ao root diam: 2.4 cm IVSd: 0.88 cm LVIDs: 5.8 cm EDV(Teich): 292.5 ml Ao root area: 4.6 cm2 LVPWd: 0.94 cm ESV(Teich): 164.1 ml LA dimension: 4.3 cm EF(Teich): 43.9 % Doppler Measurements & Calculations MV E max maddie: MV P1/2t max maddie: Ao V2 max: LV V1 max P.5 cm/sec 148.3 cm/sec 99.9 cm/sec 2.4 mmHg MV A max maddie: MV P1/2t: 50.5 msec Ao max PG: LV V1 max: 40.5 cm/sec MVA(P1/2t): 4.4 cm2 4.0 mmHg 77.0 cm/sec MV E/A: 2.9 MV dec slope: 859.8 cm/sec2 MV dec time: 0.12 sec PA V2 max: PI end-d maddie: TR max maddie: MV P1/2t-pr_phl: 88.2 cm/sec 129.0 cm/sec 254.0 cm/sec 50.5 msec PA max P.1 mmHg TR max P.8 mmHg Left Ventricle The left ventricle is moderately to severly dilated. There is normal left ventricular wall thickness. LV EF is 35%. Left ventricular systolic function is moderately reduced. There is moderate global hypokinesis of the left ventricle. There is no thrombus. Right Ventricle The right ventricle is not well visualized secondary to technical limitations. Atria Right atrium not well visualized secondary to technical limitations. The left atrium is moderately dilated. Mitral Valve There is no evidence of mitral valve prolapse. There is no vegetation seen on the mitral valve. There is no mitral valve stenosis. There is a moderate amount of mitral regurgitation. Aortic Valve There is no aortic valvular vegetation. There is no aortic valve stenosis. There is no LVOT obstruction. There is aortic sclerosis without aortic stenosis. No aortic regurgitation is present. Tricuspid Valve There is no tricuspid stenosis. There is a mild amount of tricuspid regurgitation. There is mild pulmonary hypertension by echo. RVSP is 36 mm of Hg , with RA mean of 10. Pulmonic Valve There is no pulmonic valvular stenosis. There is a trace amount of pulmonic regurgitation. Great Vessels The aortic root is not well visualized but is probably normal size. Effusions There is no pericardial effusion. : RENAE HATCH > Molly Limon
[2018-04-24] MEDS: HEPARIN SOD (PORCINE) 5,000 UNIT/ML 1 ML SYRINGE SUBCUT SCH (06:47)
[2018-04-24 06:57] LABS: ABSOLUTE EOSINOPHILS # (AUTO) 0.2 10^3/uL (0.0-0.6); ABSOLUTE LYMPHOCYTES (AUTO) 1.6 10^3/uL (0.5-4.7); ABSOLUTE MONOCYTES (AUTO) 0.5 10^3/uL (0.1-1.4); ABSOLUTE NEUT (AUTO) 3.8 10^3/uL (1.7-8.2); BASOPHILS % (AUTO) 0.4 % (0-2); EOSINOPHILS % (AUTO) 3.7 % (0-6); HEMOGLOBIN 11.8 g/dL (12.0-15.5); LYMPHOCYTES % (AUTO) 25.7 % (13-45); MEAN CORPUSCULAR HEMOGLOBIN 26.9 pg (27.0-33.4); MEAN CORPUSCULAR HGB CONC 32.8 g/dL (32.0-36.0); MEAN CORPUSCULAR VOLUME 82 fl (80-97); MONOCYTES % (AUTO) 7.5 % (3-13); PLATELET COUNT 243 10^3/uL (150-450); RED BLOOD COUNT 4.38 10^6/uL (3.72-5.28); RED CELL DISTRIBUTION WIDTH 17.1 % (11.5-14.0); SEGMENTED NEUTROPHILS % (AUTO) 62.7 % (42-78); TOTAL CELLS COUNTED % (AUTO) 100 %
[2018-04-24 07:19] LABS: ANION GAP 8 (5-19); BLOOD UREA NITROGEN 17 mg/dL (7-20); CALCIUM 9.4 mg/dL (8.4-10.2); CARBON DIOXIDE 31 mmol/L (22-30); CHLORIDE 101 mmol/L (98-107); GLUCOSE 119 mg/dL (75-110); POTASSIUM 3.4 mmol/L (3.6-5.0); SODIUM 140.1 mmol/L (137-145)
[2018-04-24 08:06] VITALS: BP 139/66
[2018-04-24] MEDS: LEVALBUTEROL HCL NEB 1.25 MG/3 ML AMPUL NEB SCH (08:12)
[2018-04-24] MEDS: BUDESONIDE NEB 0.5 MG/2 ML AMPUL NEB SCH (08:12)
[2018-04-24] MEDS: IPRATROPIUM BROMIDE 0.02% NEB 0.5 MG/2.5 ML AMPUL NEB SCH (08:12)
[2018-04-24] MEDS: METFORMIN HCL 500 MG TABLET PO SCH (08:58)
[2018-04-24] MEDS: FAMOTIDINE 20 MG TABLET PO SCH (09:07)
[2018-04-24] MEDS: LISINOPRIL 5 MG TABLET PO SCH (09:07)
[2018-04-24] MEDS: CARVEDILOL 12.5 MG TABLET PO SCH (09:08)
[2018-04-24] MEDS: DOCUSATE SODIUM 100 MG CAPSULE PO SCH (09:08)
[2018-04-24] MEDS: ASPIRIN 81 MG TABLET, ENT COATED PO SCH (09:09)
[2018-04-24] MEDS: FUROSEMIDE INJ/PF 40 MG/4 ML SDV IV SCH (09:19)
[2018-04-24] MEDS: HYDROCORTISONE 1% OINTMENT 28.35 GM TP SCH (09:22)
[2018-04-24] MEDS ORDERED: POTASSIUM CHLORIDE 10 MEQ CAPSULE.ER PO ONE (10:00)
--- NOTE | 2018-04-24 10:10 | PDOC DISCHARGE SUMMARY ---
General - Admit/Disc Date/PCP Admission Date/Primary Care Provider: 04/22/18 19:53 JESSICA NAIR MD Discharge Date: 04/24/18 - Discharge Diagnosis (1) Acute on chronic systolic (congestive) heart failure Is this a current diagnosis for this admission?: Yes (2) COPD (chronic obstructive pulmonary disease) Is this a current diagnosis for this admission?: Yes (3) Diabetes mellitus type 2 in obese Is this a current diagnosis for this admission?: Yes (4) Hypertension Is this a current diagnosis for this admission?: Yes (5) Obesity (BMI 30.0-34.9) Is this a current diagnosis for this admission?: Yes (6) Tobacco use disorder, moderate, dependence Is this a current diagnosis for this admission?: Yes - Additional Information Resuscitation Status: Full Code Discharge Diet: Cardiac, Diabetic Discharge Activity: Activity As Tolerated, Balance Activity w/Rest, Weigh Daily Home Medications: Aspirin [Ecotrin 81 mg EC Tablet] 81 mg PO DAILY 04/22/18 Carvedilol [Coreg 25 mg Tablet] 1 tab PO DAILY 04/22/18 Furosemide [Lasix 20 mg Tablet] 20 mg PO BID 04/22/18 Lisinopril [Prinivil 5 mg Tablet] 5 mg PO DAILY 04/22/18 History of Present Illness History of Present Illness: JARETT REED is a 62 year old female who presented to the emergency room with a 1 month history of gradually worsening dyspnea on exertion and orthopnea. She admits that her dyspnea is now a moderate to severe fullness sensation in her anterior chest and her orthopnea is quite severe and prevents her from sleeping well. She further admits similar prior episodes in the past with exacerbations of her congestive heart failure but none were quite this severe. She has not identified any other aggravating or ameliorating factors for her dyspnea. She admits cardiac risk factors of long-standing tobacco abuse, hypertension and diabetes mellitus type 2. In the emergency room she was found to have negative cardiac enzymes and her EKG showed no evidence for acute myocardial injury or ischemia. Because of her multiple risk factors she was admitted for further evaluation treatment and improvement in the control of her hypertension and congestive heart failure. Hospital Course Hospital Course: Ms. Reed is a very pleasant 62 years old black female patient who presented with 1 month history of dyspnea on exertion. Patient has underlying congestive heart failure and during estimate admission we did echocardiogram and reported as depressed left ventricular function with ejection fraction of 35%. Patient has been managed with IV Lasix and continue her home cardioprotective medications namely carvedilol and lisinopril. This morning I seen patient resting in bed comfortably she is not in pain or any form of acute cardiorespiratory distress. Her vital signs are within normal limits her labs are okay except her potassium is mildly low which is 3.4 for which we replaced it with 40 mg of potassium p.o. stat. Patient is strongly advised to do lifestyle modification, to comply with her diet and medication. She is also advised to follow-up with her primary care physician in the coming 1 week. I will refill her home medications. End of dictation. Physical Exam Vital Signs: Temp Pulse Resp BP Pulse Ox 98.5 F 50 L 16 139/66 H 97 04/24/18 08:00 04/24/18 08:13 04/24/18 08:13 04/24/18 08:00 04/24/18 08:13 Intake & Output 04/23/18 04/24/18 04/25/18 06:59 06:59 06:59 Intake Total 275 857 Balance 275 857 Weight 96.3 kg 96.3 kg General appearance: PRESENT: no acute distress, well-developed, well-nourished Head exam: PRESENT: atraumatic, normocephalic Eye exam: PRESENT: conjunctiva pink, EOMI, PERRLA. ABSENT: scleral icterus Ear exam: PRESENT: normal external ear exam Mouth exam: PRESENT: moist, tongue midline Neck exam: ABSENT: carotid bruit, JVD, lymphadenopathy, thyromegaly Respiratory exam: PRESENT: clear to auscultation jacquelyn. ABSENT: rales, rhonchi, wheezes Cardiovascular exam: PRESENT: RRR. ABSENT: diastolic murmur, rubs, systolic murmur Pulses: PRESENT: normal dorsalis pedis pul Vascular exam: PRESENT: normal capillary refill GI/Abdominal exam: PRESENT: normal bowel sounds, soft. ABSENT: distended, guarding, mass, organolmegaly, rebound, tenderness Rectal exam: PRESENT: deferred Extremities exam: PRESENT: full ROM. ABSENT: calf tenderness, clubbing, pedal edema Neurological exam: PRESENT: alert, awake, oriented to person, oriented to place, oriented to time, oriented to situation, CN II-XII grossly intact. ABSENT: motor sensory deficit Psychiatric exam: PRESENT: appropriate affect, normal mood. ABSENT: homicidal ideation, suicidal ideation Skin exam: PRESENT: dry, intact, warm. ABSENT: cyanosis, rash Results Laboratory Results: 04/24/18 05:31 04/24/18 05:31 04/24/18 04/24/18 05:31 05:31 WBC 6.0 RBC 4.38 Hgb 11.8 L Hct 36.0 MCV 82 MCH 26.9 L MCHC 32.8 RDW 17.1 H Plt Count 243 Seg Neutrophils % 62.7 Lymphocytes % 25.7 Monocytes % 7.5 Eosinophils % 3.7 Basophils % 0.4 Absolute Neutrophils 3.8 Absolute Lymphocytes 1.6 Absolute Monocytes 0.5 Absolute Eosinophils 0.2 Absolute Basophils 0.0 Sodium 140.1 Potassium 3.4 L Chloride 101 Carbon Dioxide 31 H Anion Gap 8 BUN 17 Creatinine 0.62 Est GFR ( Amer) > 60 Est GFR (Non-Af Amer) > 60 Glucose 119 H Calcium 9.4 Magnesium 1.7 04/22/18 04/22/18 04/22/18 16:42 22:41 22:41 Creatine Kinase 38 CK-MB (CK-2) 0.28 Troponin I < 0.012 < 0.012 NT-Pro-B Natriuret Pep 627 04/23/18 04/23/18 04/23/18 04:30 04:30 08:28 Creatine Kinase 34 29 L CK-MB (CK-2) 0.23 Troponin I < 0.012 NT-Pro-B Natriuret Pep 04/23/18 08:28 Creatine Kinase CK-MB (CK-2) < 0.22 Troponin I < 0.012 NT-Pro-B Natriuret Pep Impressions: Chest X-Ray 04/22/18 16:15 IMPRESSION: Cardiomegaly with mild pulmonary vascular congestion. Tiny left pleural effusion and there are linear density suggesting a tiny amount of fluid in the fissures. Qualifiers - * PATIENT BEING DISCHARGED WITH ANY OF THE FOLLOWING DIAGNOSIS: Heart Failure VTE patient discharged on overlapping Therapy?: No Reason(s) for not prescribing Overlap Therapy:: Not indicated Stroke Pt being discharged on Anti-thrombolytic therapy?: No Reason(s) for not prescribing Anti-thrombolytic therapy:: Not indicated Stroke Pt being discharged on Anti-coagulation therapy?: No Reason(s) for not prescribing Anti-coagulation therapy:: Not indicated Stroke Pt being discharged on Statins?: No Reason(s) for not prescribing Statins therapy:: Not indicated NV Pt being discharged on Aspirin therapy?: No Reason(s) for not prescribing Aspirin therapy:: Not indicated NV Pt being discharged on Statins?: No Reason(s) for not prescribing Statin therapy:: Not indicated Reason(s) for not prescribing ACEI/ARBS:: Not indicated HF Pt being discharged on ACEI for LVEF less than 40%?: Yes HF Pt being discharged on ARBS for LVEF less than 40%?: No Reason(s) for not prescribing ARBS:: Not indicated HF Pt with Afib discharged with Warfarin?: No Reason(s) for not prescribing Warfarin:: Not indicated HF Pt discharged on evidence-based Beta Radu:: Yes
== END 2018-04-24 11:35 | disposition home or self-care (01) | DRG 293 ==
LOC: ER 13:38 → EH 19:53 → 5 23:00
PROVIDERS: ADMIT Emergency Medicine; ATTEND Emergency Medicine
PROC: 3E0F73Z Introduction of Anti-inflammatory into Respiratory Tract, Via Natural or Artificial Opening (ICD-10-PCS; principal; 2018-04-23)
DX: I11.0 Hypertensive heart disease with heart failure (principal); I50.33 Acute on chronic diastolic (congestive) heart failure; J44.9 Chronic obstructive pulmonary disease, unspecified; E11.9 Type 2 diabetes mellitus without complications; E66.9 Obesity, unspecified; I25.10 Atherosclerotic heart disease of native coronary artery without angina pectoris; L30.9 Dermatitis, unspecified; F17.210 Nicotine dependence, cigarettes, uncomplicated; Z68.34 Body mass index [BMI] 34.0-34.9, adult; Z60.2 Problems related to living alone; Z79.82 Long term (current) use of aspirin; Z88.0 Allergy status to penicillin; Z79.899 Other long term (current) drug therapy; Z83.3 Family history of diabetes mellitus; Z82.49 Family history of ischemic heart disease and other diseases of the circulatory system; Z80.9 Family history of malignant neoplasm, unspecified
CPT/HCPCS: 36415; 71046; 80048; 80053; 80061; 81001; 82550; 82553; 82962; 83036; 83690; 83735; 83880; 84439; 84443; 84481; 84484; 85025; 93005; 93010; 93306; 94640; 96374; 99285; J1644; J1940; J3490; J7620

== ENCOUNTER → 2018-08-02 | Outpatient (CLI) | payer MEDICAID ==
--- NOTE | 2018-08-02 08:57 | WOMENS IMAGING REPORT ---
EXAM DESCRIPTION: BILAT SCREENING MAMMO W/CAD COMPLETED DATE/TIME: 08/02/2018 8:43 am REASON FOR STUDY: Z12.31 ROUTINE BILATERAL SCREENING Z12.31 ENCNTR SCREEN MAMMOGRAM FOR MALIGNANT N EOPLASM OF JOSE COMPARISON: [id number] TECHNIQUE: Standard craniocaudal and mediolateral oblique views of each breast recorded using Voucherlinka l acquisition. LIMITATIONS: None. FINDINGS: No masses, calcifications or architectural distortion. No areas of suspicion. Read with the assistance of CAD. .[facility] - R2 Cenova Version 1.3 .[facility] - R2 Cenova Version 2.1 .[facility] - R2 Cenova Version 2.4 .[facility] [place] - R2 Cenova Version 2.4 .[facility] - R2 Law Researcher Version 9.2 IMPRESSION: NORMAL MAMMOGRAM. BIRADS 1. BREAST DENSITY: b. There are scattered areas of fibroglandular density. BIRAD: 1 NEGATIVE RECOMMENDATION: ROUTINE SCREENING COMMENT: The patient has been notified of the results by letter per SA requirements. Additional no tification policies are in place for contacting patient with suspicious or incomplete findings. Quality ID #[id number]: The [employer] recommends an annual screening mammogram for women aged 40 years or over. This facility utilizes a reminder system to ensure that all patients receive reminder letters, and/or direct phone calls for appointments. This includes reminders for routine scr eening mammograms, diagnostic mammograms, or other Breast Imaging Interventions when appropriate. Th is patient will be placed in the appropriate reminder system. The [employer] (ACR) has developed recommendations for screening MRI of the breast s in certain patient populations, to be used in conjunction with mammography. Breast MRI surveillanc e may be appropriate for women with more than 20% lifetime risk of developing breast cancer as deter mined by genetic testing, significant family history of the disease, or history of mantle radiation f or Hodgkins Disease. ACR Practice Guidelines 2008. TECHNICAL DOCUMENTATION: FINDING NUMBER: (1) ASSESSMENT: (1) JOB ID: [id number] [employer]- All Rights Reserved Reading location - IP/workstation name: [email or web address]
== END ==
LOC: WI 08:25
PROVIDERS: ATTEND Nurse Practitioner Family
DX: Z12.31 Encounter for screening mammogram for malignant neoplasm of breast (principal)
CPT/HCPCS: 77067

== ENCOUNTER 2018-12-23 10:23 | Emergency (ER) | payer MEDICAID, MEDICARE ==
--- NOTE | 2018-12-23 10:35 | ER Document Report ---
ED Medical Screen (RME) - General Chief Complaint: Cough Stated Complaint: SHORTNESS OF BREATH Time Seen by Provider: 12/23/18 10:34 Primary Care Provider: ALLEN RICK FNP-C [Primary Care Provider] - Follow up as needed Mode of Arrival: Wheelchair Information source: Patient Notes: Patient is a 63-year-old female with complaints of productive cough that is been lasting for approximately 5 days. Patient reports she is coughing up green sputum. She denies any other symptoms to include fever. Denies history of pneumonia. Exam: Lung sounds clear and equal bilaterally. I have greeted and performed a rapid initial assessment of this patient. A comprehensive ED assessment and evaluation of the patient, analysis of test results and completion of the medical decision making process will be conducted by additional ED providers. I have specifically instructed the patient or family members with the patient to immediately return to any nursing staff should anything change in the patient's condition or with their chief complaint. This medical record was dictated with voice recognizing software. There may be grammatical, syntax errors that are unintended. TRAVEL OUTSIDE OF THE [place] IN LAST 30 DAYS: No - Related Data Allergies/Adverse Reactions: Penicillins Allergy (Verified 04/22/18 13:41) Past Medical History - Past Medical History Cardiac Medical History: Reports: Hx Congestive Heart Failure, Hx Coronary Ar wagner Disease, Hx Hypertension Denies: Hx Heart Attack Pulmonary Medical History: Reports: Hx COPD Denies: Hx Asthma, Hx Bronchitis, Hx Pneumonia Neurological Medical History: Denies: Hx Cerebrovascular Accident, Hx Seizures Endocrine Medical History: Reports: Hx Diabetes Mellitus Type 2. Denies: Hx Diabetes Mellitus Type 1, Hx Hyperthyroidism, Hx Hypothyroidism Renal/ Medical History: Denies: Hx Peritoneal Dialysis GI Medical History: Denies: Hx Cirrhosis, Hx Hepatitis Musculoskeltal Medical History: Denies Hx Arthritis Skin Medical History: Denies Hx Eczema, Denies Hx Psoriasis Psychiatric Medical History: Denies: Hx Depression Infectious Medical History: Denies: Hx Hepatitis Past Surgical History: Reports: Hx Breast Surgery - Cyst removed from breast. Denies: Hx Hysterectomy - Immunizations Immunizations up to date: Yes Hx Diphtheria, Pertussis, Tetanus Vaccination: Yes Physical Exam - Vital signs Vitals: Temp Pulse Resp BP Pulse Ox 97.8 F 66 24 H 132/60 H 97 12/23/18 10:28 12/23/18 10:28 12/23/18 10:28 12/23/18 10:28 12/23/18 10:28 Course - Vital Signs Vital signs: Temp Pulse Resp BP Pulse Ox 97.8 F 66 24 H 132/60 H 97 12/23/18 10:28 12/23/18 10:28 12/23/18 10:28 12/23/18 10:28 12/23/18 10:28 Doctor's Discharge - Discharge Referrals: ALLEN RICK FNP-C [Primary Care Provider] - Follow up as needed
--- NOTE | 2018-12-23 11:19 | RADIOLOGY REPORT (SQ) ---
EXAM DESCRIPTION: CHEST 2 VIEWS COMPLETED DATE/TIME: 12/23/2018 11:09 am REASON FOR STUDY: productive cough x5 days COMPARISON: 04/22/2018 EXAM PARAMETERS: NUMBER OF VIEWS: two views TECHNIQUE: Digital Frontal and Lateral radiographic views of the chest acquired. RADIATION DOSE: NA LIMITATIONS: none FINDINGS: LUNGS AND PLEURA: No opacities, masses or pneumothorax. No pleural effusion. MEDIASTINUM AND HILAR STRUCTURES: No masses or contour abnormalities. HEART AND VASCULAR STRUCTURES: Cardiomegaly. BONES: Disc degenerative disease of the thoracic spine. HARDWARE: None in the chest. OTHER: No other significant finding. IMPRESSION: Cardiomegaly without acute abnormality of the lungs. No focal airspace opacity. TECHNICAL DOCUMENTATION: JOB ID: [id number] [employer]- All Rights Reserved Reading location - IP/workstation name: [email or web address]
--- NOTE | 2018-12-23 12:49 | ER Document Report ---
ED Respiratory Problem - General Chief Complaint: Cough Stated Complaint: SHORTNESS OF BREATH Time Seen by Provider: 12/23/18 10:34 Primary Care Provider: ALLEN RICK FNP-C [Primary Care Provider] - Follow up as needed Mode of Arrival: Wheelchair Notes: 63-year-old female with history of heart failure with preserved ejection fraction, hypertension, cfz-[id number] diabetes mellitus presents emergency department with chief complaint of productive cough that is been lasting for approximately 5 days. Patient reports she is coughing up green sputum. Patient states she sought emergency care because the cough has been persistent and she was concerned because she had a bout of stress incontinence. She denies any other symptoms to include fever. Denies history of pneumonia. Patient is also concerned because she has been constipated for 3 days, last bowel movement 3 days ago. She has been passing gas but she states this is not normal for her. She is concerned that she is "backed up" causing her shortness of breath. Patient has no dyspnea on exertion, does not have worsening orthopnea. TRAVEL OUTSIDE OF THE [place] IN LAST 30 DAYS: No - Related Data Allergies/Adverse Reactions: Penicillins Allergy (Verified 04/22/18 13:41) Past Medical History - General Information source: Patient - Social History Smoking Status: Current Every Day Smoker Chew tobacco use (# tins/day): No Frequency of alcohol use: None Drug Abuse: None Family History: DM, Hypertension, Malignancy. denies: Arthritis, CAD, COPD, CVA, Hyperlipidemia, Thyroid Disfunction Patient has suicidal ideation: No Patient has homicidal ideation: No - Past Medical History Cardiac Medical History: Reports: Hx Congestive Heart Failure, Hx Coronary Artery Disease, Hx Hypertension Denies: Hx Heart Attack Pulmonary Medical History: Reports: Hx COPD Denies: Hx Asthma, Hx Bronchitis, Hx Pneumonia Neurological Medical History: Denies: Hx Cerebrovascular Accident, Hx Seizures Endocrine Medical History: Reports: Hx Diabetes Mellitus Type 2. Denies: Hx Diabetes Mellitus Type 1, Hx Hyperthyroidism, Hx Hypothyroidism Renal/ Medical History: Denies: Hx Peritoneal Dialysis GI Medical History: Denies: Hx Cirrhosis, Hx Hepatitis Musculoskeletal Medical History: Denies Hx Arthritis Skin Medical History: Denies Hx Eczema, Denies Hx Psoriasis Psychiatric Medical History: Denies: Hx Depression Infectious Medical History: Denies: Hx Hepatitis Past Surgical History: Reports: Hx Breast Surgery - Cyst removed from breast. Denies: Hx Hysterectomy - Immunizations Immunizations up to date: Yes Hx Diphtheria, Pertussis, Tetanus Vaccination: Yes Review of Systems - Review of Systems Constitutional: See HPI EENT: No symptoms reported Cardiovascular: See HPI Respiratory: See HPI Gastrointestinal: See HPI Genitourinary: No symptoms reported Female Genitourinary: No symptoms reported Musculoskeletal: See HPI Skin: No symptoms reported Hematologic/Lymphatic: No symptoms reported Neurological/Psychological: No symptoms reported Physical Exam - Vital signs Vitals: Temp Pulse Resp BP Pulse Ox 97.8 F 66 24 H 132/60 H 97 12/23/18 10:28 12/23/18 10:28 12/23/18 10:28 12/23/18 10:28 12/23/18 10:28 - Notes Notes: PHYSICAL EXAMINATION: Reviewed vital signs and charting by RN GENERAL: Alert, interacts well. No acute distress. HEAD: Normocephalic, atraumatic. EYES: Pupils equal and round. Extraocular movements intact. ENT: Oral mucosa moist, tongue midline. NECK: Full range of motion. Trachea midline. LUNGS: Clear to auscultation bilaterally, no wheezes, rales, or rhonchi. No respiratory distress. HEART: Regular rate and rhythm. No murmur ABDOMEN: soft, non-tender. No distention. Bowel sounds present EXTREMITIES: Moves all 4 extremities spontaneously. No edema, No cyanosis. PSYCH: Normal affect, normal mood. SKIN: Warm, dry, normal turgor. No rashes or lesions noted. Course - Re-evaluation Re-evalutation: 12/23/18 12:46 Patient is well-appearing and nontoxic, chest x-ray obtained which did not show any consolidation or focal airspace opacity concerning for pneumonia, no evidence of pulmonary vascular congestion. Patient's lungs were clear to auscultation in all vidal and she did have a cough while in the room. Patient does state that she has had a cold for the last several days. At this time with a normal physical exam I do not feel we need to pursue any additional lab work and patient can go home with symptomatic treatment and follow-up with her primary doctor. She does have an appointment with her silk trimmer on . At this time she is stable for discharge. - Vital Signs Vital signs: Temp Pulse Resp BP Pulse Ox 97.8 F 66 24 H 132/60 H 97 12/23/18 10:28 12/23/18 10:28 12/23/18 10:28 12/23/18 10:28 12/23/18 10:28 Discharge - Discharge Clinical Impression: Cough Condition: Good Disposition: HOME, SELF-CARE Additional Instructions: Your symptoms are likely due to a viral infection. The only treatment at this time is supportive care including drinking plenty of fluids, Tylenol 1000 mg every 6 hours and/or ibuprofen 600 mg every 6 hours. Your symptoms will likely last for 7-10 days. Please return to the emergency department immediately if you become confused, have persistent vomiting, pass out, have severe headache, or have any other symptoms that are worrisome to you. Follow-up with your primary care doctor in the next several days and please keep your cardiology appointment this . Referrals: ALLEN RICK FNP-C [Primary Care Provider] - Follow up as needed
[2018-12-23 13:16] VITALS: BP 148/61
== END 2018-12-23 13:16 | disposition home or self-care (01) ==
LOC: ER 10:23
DX: R05 Cough (principal); R06.02 Shortness of breath; J44.9 Chronic obstructive pulmonary disease, unspecified; F17.200 Nicotine dependence, unspecified, uncomplicated; I50.9 Heart failure, unspecified; I25.10 Atherosclerotic heart disease of native coronary artery without angina pectoris; I11.0 Hypertensive heart disease with heart failure; Z88.0 Allergy status to penicillin
CPT/HCPCS: 71046

== ENCOUNTER 2019-02-20 08:50 | Inpatient (IN) | payer MEDICAID, MEDICARE ==
--- NOTE | 2019-02-20 09:13 | EKG REPORT ---
SEVERITY:- ABNORMAL ECG - SINUS RHYTHM NONSPECIFIC T ABNORMALITIES, DIFFUSE LEADS : Confirmed by: Frankie Farrell 20-Feb-2019 09:12:52
[2019-02-20 10:43] LABS: ABSOLUTE EOSINOPHILS # (AUTO) 0.1 10^3/uL (0.0-0.6); ABSOLUTE LYMPHOCYTES (AUTO) 1.4 10^3/uL (0.5-4.7); ABSOLUTE MONOCYTES (AUTO) 0.5 10^3/uL (0.1-1.4); ABSOLUTE NEUT (AUTO) 3.8 10^3/uL (1.7-8.2); BASOPHILS % (AUTO) 0.5 % (0-2); EOSINOPHILS % (AUTO) 2.3 % (0-6); HEMOGLOBIN 12.7 g/dL (12.0-15.5); MEAN CORPUSCULAR HEMOGLOBIN 27.1 pg (27.0-33.4); MEAN CORPUSCULAR HGB CONC 32.5 g/dL (32.0-36.0); MEAN CORPUSCULAR VOLUME 83 fl (80-97); MONOCYTES % (AUTO) 7.9 % (3-13); PLATELET COUNT 235 10^3/uL (150-450); RED BLOOD COUNT 4.68 10^6/uL (3.72-5.28); RED CELL DISTRIBUTION WIDTH 17.8 % (11.5-14.0); SEGMENTED NEUTROPHILS % (AUTO) 65.3 % (42-78); TOTAL CELLS COUNTED % (AUTO) 100 %; WHITE BLOOD COUNT 5.8 10^3/uL (4.0-10.5)
[2019-02-20 10:47] LABS: APPEARANCE,URINE SLIGHTLY-CLOUDY; BILIRUBIN,URINE NEGATIVE (NEGATIVE); COLOR,URINE YELLOW; GLUCOSE, URINE NEGATIVE (NEGATIVE); KETONES,URINE NEGATIVE (NEGATIVE); LEUKOCYTE ESTERASE,URINE NEGATIVE (NEGATIVE); NITRITE,URINE NEGATIVE (NEGATIVE); PROTEIN,URINE 100 mg/dL (NEGATIVE); URINE SPECIFIC GRAVITY 1.014
--- NOTE | 2019-02-20 10:55 | RADIOLOGY REPORT (SQ) ---
EXAM DESCRIPTION: CHEST SINGLE VIEW COMPLETED DATE/TIME: 02/20/2019 10:02 am REASON FOR STUDY: SOB COMPARISON: 12/23/2018 EXAM PARAMETERS: NUMBER OF VIEWS: One view. TECHNIQUE: Single frontal radiographic view of the chest acquired. RADIATION DOSE: NA LIMITATIONS: None. FINDINGS: LUNGS AND PLEURA: No opacities, masses or pneumothorax. No pleural effusion. MEDIASTINUM AND HILAR STRUCTURES: No masses. Contour normal. HEART AND VASCULAR STRUCTURES: Cardiomegaly. No pulmonary edema. BONES: No acute findings. HARDWARE: None in the chest. OTHER: No other significant finding. IMPRESSION: Cardiomegaly without pulmonary edema. TECHNICAL DOCUMENTATION: JOB ID: [id number] [employer]- All Rights Reserved Reading location - IP/workstation name: [email or web address]
[2019-02-20 11:15] LABS: ALBUMIN 4.2 g/dL (3.5-5.0); ALKALINE PHOSPHATASE 73 U/L (38-126); ANION GAP 10 (5-19); ASPARTATE AMINO TRANSFERASE 21 U/L (14-36); BILIRUBIN,DIRECT 0.3 mg/dL (0.0-0.4); BILIRUBIN,TOTAL 0.9 mg/dL (0.2-1.3); BLOOD UREA NITROGEN 16 mg/dL (7-20); CALCIUM 9.6 mg/dL (8.4-10.2); CARBON DIOXIDE 27 mmol/L (22-30); CHLORIDE 103 mmol/L (98-107); GLUCOSE 133 mg/dL (75-110); POTASSIUM 3.9 mmol/L (3.6-5.0); TOTAL PROTEIN 7.6 g/dL (6.3-8.2)
[2019-02-20 11:26] LABS: NT PRO BNP 993 pg/mL (5-900)
[2019-02-20 11:28] LABS: TROPONIN I < 0.012 ng/mL
--- NOTE | 2019-02-20 12:37 | RADIOLOGY REPORT (SQ) ---
EXAM DESCRIPTION: U/S ABDOMEN LIMITED W/O DOP COMPLETED DATE/TIME: 02/20/2019 12:20 pm REASON FOR STUDY: ruq pain COMPARISON: None. TECHNIQUE: Dynamic and static grayscale images acquired of the abdomen and recorded on PACS. Additio nal selected color Doppler and spectral images recorded. LIMITATIONS: None. FINDINGS: PANCREAS: No masses. Visualized pancreatic duct normal caliber. LIVER: 2.5 cm hemangioma. LIVER VASCULATURE: Normal directional flow of the main portal vein and hepatic veins. GALLBLADDER: Stones are present in the neck and fundus of the gallbladder. The gallbladder wall is s lightly thickened. There appears to be a small amount of pericholecystic fluid.c ULTRASOUND-DETECTED GODOY'S SIGN: Negative. INTRAHEPATIC DUCTS AND COMMON DUCT: CBD and intrahepatic ducts normal caliber. No filling defects. INFERIOR VENA CAVA: Normal flow. AORTA: No aneurysm. RIGHT KIDNEY: Normal size, 11.3 cm. Normal echogenicity. No solid or suspicious masses. No hydroneph rosis. No calcifications. PERITONEAL AND RIGHT PLEURAL SPACE: No ascites or effusions. OTHER: No other significant findings. IMPRESSION: Cholelithiasis with mild thickening of the gallbladder wall and a small amount of perich olecystic fluid. Negative sonographic Godoy sign. TECHNICAL DOCUMENTATION: JOB ID: [id number] [employer]- All Rights Reserved Reading location - IP/workstation name: [email or web address]
--- NOTE | 2019-02-20 12:54 | ER Document Report ---
ED General - General Chief Complaint: Breathing Difficulty Stated Complaint: DIFFICULTY BREATHING Time Seen by Provider: 02/20/19 10:46 Primary Care Provider: ALLEN RICK FNP-C [Primary Care Provider] - Follow up as needed Mode of Arrival: Ambulatory Information source: Patient TRAVEL OUTSIDE OF THE [place] IN LAST 30 DAYS: No - HPI Notes: Patient presents complaining of shortness of breath. Abdominal distention. Discomfort after eating. Some of the discomfort does radiate up into her chest. It is intermittent. It is moderate. It is a fullness type sensation. No vomiting but some nausea. No problems with bowel movements or urination. No cough cold or congestion. No previous abdominal surgeries. He also complains of some right low back pain with pain radiating down her right leg. - Related Data Allergies/Adverse Reactions: Penicillins Allergy (Verified 02/20/19 10:01) Past Medical History - Social History Smoking Status: Current Every Day Smoker Chew tobacco use (# tins/day): No Frequency of alcohol use: None Drug Abuse: None Family History: DM, Hypertension, Malignancy. denies: Arthritis, CAD, COPD, CVA, Hyperlipidemia, Thyroid Disfunction Patient has suicidal ideation: No Patient has homicidal ideation: No - Past Medical History Cardiac Medical History: Reports: Hx Congestive Heart Failure, Hx Coronary Artery Disease, Hx Hypertension Denies: Hx Heart Attack Pulmonary Medical History: Reports: Hx COPD Denies: Hx Asthma, Hx Bronchitis, Hx Pneumonia Neurological Medical History: Denies: Hx Cerebrovascular Accident, Hx Seizures Endocrine Medical History: Reports: Hx Diabetes Mellitus Type 2. Denies: Hx Diabetes Mellitus Type 1, Hx Hyperthyroidism, Hx Hypothyroidism Renal/ Medical History: Denies: Hx Peritoneal Dialysis GI Medical History: Denies: Hx Cirrhosis, Hx Hepatitis Musculoskeletal Medical History: Denies Hx Arthritis Skin Medical History: Denies Hx Eczema, Denies Hx Psoriasis Psychiatric Medical History: Denies: Hx Depression Infectious Medical History: Denies: Hx Hepatitis Past Surgical History: Reports: Hx Breast Surgery - Cyst removed from breast. Denies: Hx Hysterectomy - Immunizations Immunizations up to date: Yes Hx Diphtheria, Pertussis, Tetanus Vaccination: Yes Review of Systems - Review of Systems Constitutional: denies: Chills, Fever Cardiovascular: Chest pain. denies: Palpitations Respiratory: Short of breath. denies: Cough Gastrointestinal: Abdomen distended, Abdominal pain, Nausea -: Yes All other systems reviewed and negative Physical Exam - Vital signs Vitals: Temp Pulse Resp BP Pulse Ox 97.5 F 58 L 22 H 147/62 H 100 02/20/19 09:00 02/20/19 09:00 02/20/19 09:00 02/20/19 09:00 02/20/19 09:00 Interpretation: Normal - General General appearance: Appears well, Alert - HEENT Head: Normocephalic, Atraumatic Eyes: Normal Pupils: PERRL - Respiratory Respiratory status: No respiratory distress Chest status: Nontender Breath sounds: Normal Chest palpation: Normal - Cardiovascular Rhythm: Regular Heart sounds: Normal auscultation Murmur: No - Abdominal Inspection: Normal Distension: No distension Bowel sounds: Normal Tenderness: Tender - Patient has some minimal tenderness to palpation in the rig ht upper quadrant. No rebound no guarding. Organomegaly: No organomegaly - Back Back: Normal, Nontender - Extremities General upper extremity: Normal inspection, Nontender, Normal color, Normal ROM, Normal temperature General lower extremity: Normal inspection, Nontender, Normal color, Normal ROM, Normal temperature, Normal weight bearing. No: Jose's sign - Neurological Neuro grossly intact: Yes Cognition: Normal Orientation: AAOx4 Aquilla Coma Scale Eye Opening: Spontaneous Shannon Coma Scale Verbal: Oriented Shannon Coma Scale Motor: Obeys Commands Aquilla Coma Scale Total: 15 Speech: Normal Motor strength normal: LUE, RUE, LLE, RLE Sensory: Normal - Psychological Associated symptoms: Normal affect, Normal mood - Skin Skin Temperature: Warm Skin Moisture: Dry Skin Color: Normal Course - Re-evaluation Re-evalutation: 02/20/19 12:55 Patient has multiple complaints. Primarily she complains of some shortness of breath abdominal distention abdominal pain and chest pain. I believe most of this is secondary to patient's biliary colic. She does have a mildly thick gallbladder wall with some stones and some mild pericholecystic fluid. However she has no fever no white count does not appear toxic at this time. Her exam does not show a surgical abdomen. I think she can follow-up as an outpatient. - Vital Signs Vital signs: Temp Pulse Resp BP Pulse Ox 97.5 F 58 L 22 H 148/76 H 100 02/20/19 09:00 02/20/19 09:00 02/20/19 11:17 02/20/19 11:17 02/20/19 11:17 - Laboratory Result Diagrams: 02/20/19 10:31 02/20/19 10:31 Laboratory results interpreted by me: 02/20/19 02/20/19 02/20/19 10:31 10:31 10:31 RDW 17.8 H Glucose 133 H NT-Pro-B Natriuret Pep Urine Protein 100 H Urine Urobilinogen 4.0 H 02/20/19 10:31 RDW Glucose NT-Pro-B Natriuret Pep 993 H Urine Protein Urine Urobilinogen - Diagnostic Test Radiology reviewed: Image reviewed, Reports reviewed - EKG Interpretation by Me EKG shows normal: Sinus rhythm Rate: Bradycardia - 59 Rhythm: NSR Sherwood/QRS: No: Right axis deviation, Left axis deviation Discharge - Discharge Clinical Impression: Biliary colic, Hypertension, Obesity (BMI 30.0-34.9), Diabetes mellitus type 2 in obese Condition: Stable Disposition: HOME, SELF-CARE Instructions: Abdominal Pain ([facility]), Antinausea Medication ([facility]), Gallbladder Disease ([facility]) Additional Instructions: Please call Dr. Fernandes as soon as possible to arrange follow-up Prescriptions: Tramadol HCl [Ultram] 50 mg PO Q6 PRN 3 Days #12 tablet PRN Reason: Ondansetron HCl [Zofran 4 mg Tablet] 1 - 2 tab PO Q4H PRN #10 tablet PRN Reason: Referrals: HADLEY VOSS MD [COMMUNITY BASED STAFF] - Follow up as needed GRANT FERNANDES MD [ACTIVE STAFF] - Follow up in 3-5 days
[2019-02-20] MEDS ORDERED: KETOROLAC TROMETHAMINE INJ/PF 30 MG/1 ML SDV IV PRN (14:05)
[2019-02-20] MEDS ORDERED: ONDANSETRON HCL INJ/PF 4 MG/2 ML SDV IV PRN (14:05)
[2019-02-20] MEDS ORDERED: NORMAL SALINE 1000 ML 1,000 ML IV PRN ×2 (14:06→21:30)
--- NOTE | 2019-02-20 14:23 | PDOC H&P ---
History of Present Illness Admission Date/PCP: CHANA WORKMAN Patient complains of: Abdominal pain shortness of breath History of Present Illness: JARETT REED is a 63 year old female Presents to the emergency department via ground rescue complaining of progressive abdominal pain, shortness of breath, pain radiating to the back, worse after eating meals. Patient has had similar episodes of the last several weeks, possibly months, but is attributed her symptoms to possible congestive heart failure which she has had multiple times in the past. Patient is a heavy smoker. She was evaluated in the emergency department where she was found to have right upper quadrant tenderness on physical examination. Gallbladder ultrasound revealed gallstones and a fatty liver. Surgery was consulted for management opinion. Patient was evaluated by Dr. Fernandes and felt to be an appropriate candidate for surgical intervention. Patient ate a cheeseburger approximately 1 hour prior to this evaluation. Past Medical History Cardiac Medical History: Reports: Congestive Heart Failure, Coronary Artery Disease, Hypertension Denies: Myocardial Infarction Pulmonary Medical History: Reports: Chronic Obstructive Pulmonary Disease (COPD) Denies: Asthma, Bronchitis, Pneumonia Neurological Medical History: Denies: Seizures Endocrine Medical History: Reports: Diabetes Mellitus Type 2 Denies: Diabetes Mellitus Type 1, Hyperthyroidism, Hypothyroidism GI Medical History: Denies: Cirrhosis, Hepatitis Musculoskeltal Medical History: Denies: Arthritis Skin Medical History: Denies: Eczema, Psoriasis Psychiatric Medical History: Denies: Depression Hematology: Denies: Anemia, Bleeding Tendencies Past Surgical History Past Surgical History: Denies: Hysterectomy Social History Information Source: Patient Smoking Status: Current Every Day Smoker Electronic Cigarette use?: No Frequency of Alcohol Use: None Hx Recreational Drug Use: No Drugs: None Hx Prescription Drug Abuse: No Family History Family History: None, DM, Hypertension, Malignancy. denies: Arthritis, CAD, COPD, CVA, Hyperlipidemia, Thyroid Disfunction Parental Family History Reviewed: No Children Family History Reviewed: No Sibling(s) Family History Reviewed.: No Medication/Allergy Home Medications: Aspirin [Ecotrin 81 mg EC Tablet] 81 mg PO DAILY 04/22/18 Carvedilol [Coreg 25 mg Tablet] 1 tab PO DAILY 04/22/18 Lisinopril [Prinivil 5 mg Tablet] 5 mg PO DAILY 04/22/18 Carvedilol [Coreg 12.5 mg Tablet] 25 mg PO Q12 30 Days #60 tablet 04/24/18 Furosemide [Lasix 20 mg Tablet] 40 mg PO BID 30 Days #60 tablet 04/24/18 Lisinopril [Prinivil 5 mg Tablet] 10 mg PO DAILY 30 Days #30 tablet 04/24/18 Benzonatate [Tessalon Perles 100 mg Capsule] 100 mg PO Q8HP PRN #40 capsule 12/23/18 Ondansetron HCl [Zofran 4 mg Tablet] 1 - 2 tab PO Q4H PRN #10 tablet 02/20/19 Tramadol HCl [Ultram] 50 mg PO Q6 PRN 3 Days #12 tablet 02/20/19 Allergies/Adverse Reactions: Penicillins Allergy (Verified 02/20/19 10:01) Review of Systems Constitutional: PRESENT: as per HPI Eyes: ABSENT: visual disturbances Ears: ABSENT: hearing changes Cardiovascular: ABSENT: chest pain, dyspnea on exertion, edema, orthropnea, palpitations Gastrointestinal: PRESENT: as per HPI, other - Anoscopy 5 years ago, Dr. Villalpando, reportedly unremarkable. Genitourinary: ABSENT: dysuria, hematuria Musculoskeletal: PRESENT: other - Chronic right lower extremity pain and lower back pain Integumentary: PRESENT: other - Has a rash about her abdominal wall, dorsum of both feet Neurological: ABSENT: abnormal gait, abnormal speech, confusion, dizziness, focal weakness, syncope Psychiatric: ABSENT: anxiety, depression, homidical ideation, suicidal ideation Endocrine: ABSENT: cold intolerance, heat intolerance, polydipsia, polyuria Hematologic/Lymphatic: ABSENT: easy bleeding, easy bruising Physical Exam Vital Signs: Temp Pulse Resp BP Pulse Ox 97.5 F 58 L 22 H 148/76 H 100 02/20/19 09:00 02/20/19 09:00 02/20/19 11:17 02/20/19 11:17 02/20/19 11:17 Intake & Output 02/19/19 02/20/19 02/21/19 06:59 06:59 06:59 Weight 95.708 kg General appearance: PRESENT: no acute distress Head exam: PRESENT: normocephalic Eye exam: PRESENT: EOMI Ear exam: PRESENT: normal external ear exam Neck exam: PRESENT: full ROM Respiratory exam: PRESENT: rhonchi Cardiovascular exam: PRESENT: RRR Pulses: PRESENT: normal carotid pulses, normal radial pulses, normal femoral pulses, normal dorsalis pedis pul GI/Abdominal exam: PRESENT: other - Abdomen is tender in the right upper quadrant with guarding. Bowel sounds are hypoactive. No hernias. Rectal exam: PRESENT: deferred Extremities exam: PRESENT: full ROM Musculoskeletal exam: PRESENT: full ROM Neurological exam: PRESENT: oriented to person, oriented to place, oriented to time, oriented to situation Skin exam: PRESENT: dry Results Laboratory Results: 02/20/19 10:31 02/20/19 10:31 02/20/19 02/20/19 02/20/19 10:31 10:31 10:31 WBC 5.8 RBC 4.68 Hgb 12.7 Hct 39.0 MCV 83 MCH 27.1 MCHC 32.5 RDW 17.8 H Plt Count 235 Seg Neutrophils % 65.3 Sodium 140.1 Potassium 3.9 Chloride 103 Carbon Dioxide 27 Anion Gap 10 BUN 16 Creatinine 0.71 Est GFR ( Amer) > 60 Glucose 133 H Calcium 9.6 Total Bilirubin 0.9 AST 21 Alkaline Phosphatase 73 Total Protein 7.6 Albumin 4.2 Urine Color YELLOW Urine Appearance SLIGHTLY-CLOUDY Urine pH 5.0 Ur Specific [place] 1.014 Urine Protein 100 H Urine Glucose (UA) NEGATIVE Urine Ketones NEGATIVE Urine Blood NEGATIVE Urine Nitrite NEGATIVE Ur Leukocyte Esterase NEGATIVE Urine WBC (Auto) 33 Urine RBC (Auto) 1 02/20/19 10:31 Troponin I < 0.012 NT-Pro-B Natriuret Pep 993 H Impressions: Chest X-Ray 02/20/19 09:40 IMPRESSION: Cardiomegaly without pulmonary edema. Abdomen Ultrasound 02/20/19 10:54 IMPRESSION: Cholelithiasis with mild thickening of the gallbladder wall and a small amount of pericholecystic fluid. Negative sonographic Godoy sign. Assessment & Plan - Diagnosis (1) Biliary colic Is this a current diagnosis for this admission?: Yes Plan: Impression: Symptomatic cholelithiasis with cholecystitis in 63-year-old heavy smoker with history of congestive heart failure, COPD, and diabetes mellitus. Mentations and plan 1. I described to the patient her symptomatic pathology, my recommendation to proceed with interval cholecystectomy. Patient just ate a cheeseburger so she cannot undergo the procedure during reasonable hours today. Is tender to moderate palpation and I believe she would fail clinically if she was discharged home to follow-up with us and schedule the planned procedure on an outpatient basis. 2. Patient is spoken with her daughter who is in the healthcare field, and is decided to proceed with admission, and interval surgery. Therefore, we will admit her to the surgical service keep her on IV fluids today, then n.p.o. after midnight, with plans to perform a laparoscopic, possible open cholecystectomy by Dr. Briggs. 3. Given patient's cardiac history, will obtain previous projection engineer records; in addition I have asked Dr. Limon, projection engineer at [facility], to evaluate patient from a preoperative standpoint. (2) Diabetes mellitus type 2 in obese Is this a current diagnosis for this admission?: Yes (3) Congestive heart failure Is this a current diagnosis for this admission?: Yes (4) Tobacco use disorder, moderate, dependence Is this a current diagnosis for this admission?: Yes (5) Elevated cholesterol Is this a current diagnosis for this admission?: Yes (6) Obesity (BMI 30.0-34.9) Is this a current diagnosis for this admission?: Yes - Time Time Spent: 50 to 70 Minutes Critical Time spent with patient: 15-24 minutes Medications reviewed and adjusted accordingly: Yes Anticipated discharge: Home - Inpatient Certification Based on my medical assessment, after consideration of the patient's comorbidities, presenting symptoms, or acuity I expect that the services needed warrant INPATIENT care.: Yes I certify that my determination is in accordance with my understanding of Medicare's requirements for reasonable and necessary INPATIENT services [42 CFR 412.3e].: Yes Medical Necessity: Need For IV Fluids, Need for Pain Control, Need for IV Antibiotics, Need for Surgery
[2019-02-20] MEDS ORDERED: INFLUENZA QUAD (6MOS+) 2019-20 VAC 0.5 ML SYR IM ONE (20:00)
--- NOTE | 2019-02-20 22:05 | PDOC CONSULTATION ---
Consultation-Blank Consultation: CARDIOLOGY CONSULTATION by Dr. Molly Limon on 02/20/2019. Patient seen at 7 PM. 60 minutes spent on this patient more than 50% time spent in direct patient care. REASON for CONSULTATION: Preoperative cardiac risk assessment for cholecystectomy. CONSULT REQUESTING PHYSICIAN: Dr. Fernandes, surgical list. HISTORY of PRESENT ILLNESS: Patient admitted with abdominal pain worsened with eating and with nausea and vomiting, and diagnosed with having cholelithiasis and is for surgical removal of the gallbladder tomorrow. The patient has a history of congestive heart failure hypertension COPD, and the patient continues to smoke. Her LV ejection fraction was reported as 35% in echo of April 2018. She also states that her recent production control technologist told her that after an echo in January 2019 her LV ejection fraction was reduced and the muscle was weak. The exact LV ejection fraction is not known. We will request records from Dr. Olmos, [facility] cardiology in [place]. The patient denies history of coronary artery disease or DE or anginal symptoms. She states that she has dyspnea on exertion with moderate exertion. Really no recent symptoms of acute exacerbation of CHF such as leg edema, PND or orthopnea. She has no palpitations. There is no prior documented history of arrhythmias. There is no syncope. The patient seems to be in compensated left ventricular systolic heart failure which is chronic. She has a history of diabetes mellitus. There is no history of thyroid disease. There is no history of sleep apnea. There is no history of seizures. The patient has no chest pain or discomfort. There is no symptoms or history of sleep apnea. There is no prior history of TIA or CVA. Past Medical History Cardiac Medical History: Reports: Congestive Heart Failure,, and history of cardiomyopathy. There is no history coronary Artery Disease. The patient has a history of hypertension. Denies: Myocardial Infarction Pulmonary Medical History: Reports: Chronic Obstructive Pulmonary Disease (COPD) Denies: Asthma, Bronchitis, Pneumonia Neurological Medical History: Denies: Seizures Endocrine Medical History: Reports: Diabetes Mellitus Type 2 Denies: Diabetes Mellitus Type 1, Hyperthyroidism, Hypothyroidism GI Medical History: Denies: Cirrhosis, Hepatitis Musculoskeltal Medical History: Denies: Arthritis Skin Medical History: Denies: Eczema, Psoriasis Psychiatric Medical History: Denies: Depression Hematology: Denies: Anemia, Bleeding Tendencies Past Surgical History Past Surgical History: Breast biopsy. Social History Information Source: Patient Smoking Status: Current Every Day Smoker Electronic Cigarette use?: No Frequency of Alcohol Use: None Hx Recreational Drug Use: No Drugs: None Hx Prescription Drug Abuse: No. RESUSCITATION STATUS: The patient is a full code. Her daughter is her surrogate healthcare decision maker. History Family History: None, DM, Hypertension, Malignancy. denies: Arthritis, CAD, COPD, CVA, Hyperlipidemia, Thyroid Disfunction Parental Family History Reviewed: No Children Family History Reviewed: No Sibling(s) Family History Reviewed.: No Medication/Allergy Home Medications: Aspirin [Ecotrin 81 mg EC Tablet] 81 mg PO DAILY 04/22/18 Carvedilol [Coreg 25 mg Tablet] 1 tab PO DAILY 04/22/18 Lisinopril [Prinivil 5 mg Tablet] 5 mg PO DAILY 04/22/18 Carvedilol [Coreg 12.5 mg Tablet] 25 mg PO Q12 30 Days #60 tablet 04/24/18 Furosemide [Lasix 20 mg Tablet] 40 mg PO BID 30 Days #60 tablet 04/24/18 Lisinopril [Prinivil 5 mg Tablet] 10 mg PO DAILY 30 Days #30 tablet 04/24/18 Benzonatate [Tessalon Perles 100 mg Capsule] 100 mg PO Q8HP PRN #40 capsule 12/23/18 Ondansetron HCl [Zofran 4 mg Tablet] 1 - 2 tab PO Q4H PRN #10 tablet 02/20/19 Tramadol HCl [Ultram] 50 mg PO Q6 PRN 3 Days #12 tablet 02/20/19 Allergies/Adverse Reactions: Penicillins Allergy Review of Systems Constitutional: No history of fever chills or rigors. Complains of generalized fatigue and weakness. Eyes: ABSENT: visual disturbances Ears: ABSENT: hearing changes Cardiovascular: ABSENT: chest pain, dyspnea on exertion, edema, orthropnea, palpitations Gastrointestinal: PRESENT: as per HPI, other - Anoscopy 5 years ago, Dr. Villalpando, reportedly unremarkable. Genitourinary: ABSENT: dysuria, hematuria. No history of chronic kidney disease. Musculoskeletal: PRESENT: other - Chronic right lower extremity pain and lower back pain Integumentary: PRESENT: other - Has a rash about her abdominal wall, dorsum of both feet Neurological: ABSENT: abnormal gait, abnormal speech, confusion, dizziness, focal weakness, syncope Psychiatric: ABSENT: anxiety, depression, homidical ideation, suicidal ideation Endocrine: ABSENT: cold intolerance, heat intolerance, polydipsia, polyuria Hematologic/Lymphatic: ABSENT: easy bleeding, easy bruising . Current Medications Generic Name Dose Route Start Last Admin Trade Name Shaq PRN Reason Stop Dose Admin Aspirin 81 mg 02/21/19 10:00 Ecotrin 81 Mg Ec Tablet PO 03/23/19 09:59 DAILY HENRI Furosemide 40 mg 02/21/19 10:00 Lasix 40 Mg Tablet PO 03/23/19 09:59 DAILY [facility] Sodium Chloride 1,000 mls @ 75 mls/hr 02/20/19 21:30 Nacl 0.9% 1000 Ml Iv Soln IV 03/22/19 14:05 CONTINUOUS PRN THIS MED IS NOT "PRN" Ketorolac Tromethamine 30 mg 02/20/19 14:05 Toradol Inj/Pf 30 Mg/1 Ml Sdv IV 02/25/19 14:04 Q6HP PRN FOR PAIN SCALE 3-4 Lisinopril 20 mg 02/21/19 10:00 Prinivil 10 Mg Tablet PO 03/23/19 09:59 DAILY [facility] Metformin HCl 1,000 mg 02/21/19 10:00 Glucophage 500 Mg Tablet PO 03/23/19 09:59 DAILY [facility] Ondansetron HCl 4 mg 02/20/19 14:05 Zofran Inj/Pf 4 Mg/2 Ml Sdv IV 03/22/19 14:04 Q4HP PRN nausea/vomiting Discontinued Medications Generic Name Dose Route Start Last Admin Trade Name Freq PRN Reason Stop Dose Admin Sodium Chloride 1,000 mls @ 150 mls/hr 02/20/19 14:06 Nacl 0.9% 1000 Ml Iv Soln IV 03/22/19 14:05 CONTINUOUS PRN THIS MED IS NOT "PRN" Influenza Virus Vaccine Quadrival 0.5 ml 02/20/19 20:00 Flulaval Quad 2019- Vac 0.5 Ml Syr IM 02/20/19 20:01 .ONCE ONE PHYSICAL EXAMINATION: The patient is moderately obese. In no acute distress. She is well-groomed. Selected Entries 02/20/19 17:27 Temperature 97.3 F Temperature Oral Source Pulse Rate [ 58 L Right] Respiratory 16 Rate Blood Pressure 150/68 H [Left Upper Arm ] Blood Pressure 95 Mean [Left Upper Arm] Blood Pressure Sitting Position [Left Upper Arm] O2 Sat by Pulse 100 Oximetry Oxygen Delivery Room Air Method ( includes room air) HEAD: Is atraumatic normocephalic. EYES: Pupils equal round regular reactive light accommodation. Extraocular movements are normal. There is no conjunctival pallor. There is no scleral icterus. EARS: Tympanic memories are intact. External auditory canals are clear. NOSE: There is no deviated nasal septum. There is no inflammation nasal mucous membrane. MOUTH: Mucous membranes of mouth are moist. Tongue is moist. There is no ulcers. There is no bleeding from the gums. THROAT: There is no redness of the oropharynx. There is no exudates. SKIN: There is no skin rashes. There is no petechia or ecchymosis there is no jaundice. NECK: Supple. There is no JVD. Carotids are equal there is no bruit. There is no lymphadenopathy. There is no goiter. There is no lymphadenopathy. There is no accessory muscle respiration use. Trachea central. LUNGS: Shows diminished air entry and prolonged expiration, without any rhonchi rales or wheezing. On percussion there is hyperresonance. There is no chest wall tenderness on palpation. HEART: S1-S2 is heard. There is no S3 gallop. There is no S4 gallop. There is systolic murmur left sternal border and the apex there is no rub. ABDOMEN: There is mild discomfort on palpating the right upper quadrant. There is no paraspinal megaly. Bowel sounds well heard. There is no rebound guarding or rigidity. EXTREMITIES: Femorals are deep. Femorals are diminished. Leg pulses slightly diminished. There is no pedal edema. There is no DVT or cellulitis. There is no cyanosis or clubbing. Capillary refill is normal. There is no calf tenderness. LUNG PULLER: The patient is conscious awake alert oriented x3 with no focal deficits. PSYCHIATRIC: The patient judgment insight are intact her affect is normal. Labs- Entire Visit 02/20/19 02/20/19 02/20/19 10:31 10:31 10:31 WBC 5.8 RBC 4.68 Hgb 12.7 Hct 39.0 MCV 83 MCH 27.1 MCHC 32.5 RDW 17.8 H Plt Count 235 Lymph % (Auto) 24.0 [place] % (Auto) 7.9 Eos % (Auto) 2.3 Baso % (Auto) 0.5 Absolute Neuts (auto) 3.8 Absolute Lymphs (auto) 1.4 Absolute Monos (auto) 0.5 Absolute Eos (auto) 0.1 Absolute Basos (auto) 0.0 Seg Neutrophils % 65.3 Sodium 140.1 Potassium 3.9 Chloride 103 Carbon Dioxide 27 Anion Gap 10 BUN 16 Creatinine 0.71 Est GFR ( Amer) > 60 Est GFR (MDRD) Non-Af > 60 Glucose 133 H Calcium 9.6 Total Bilirubin 0.9 Direct Bilirubin 0.3 Neonat Total Bilirubin Not Reportable Neonat Direct Bilirubin Not Reportable Neonat Indirect Bili Not Reportable AST 21 ALT 14 Alkaline Phosphatase 73 Troponin I NT-Pro-B Natriuret Pep Total Protein 7.6 Albumin 4.2 Urine Color YELLOW Urine Appearance SLIGHTLY-CLOUDY Urine pH 5.0 Ur Specific [place] 1.014 Urine Protein 100 H Urine Glucose (UA) NEGATIVE Urine Ketones NEGATIVE Urine Blood NEGATIVE Urine Nitrite NEGATIVE Urine Bilirubin NEGATIVE Urine Urobilinogen 4.0 H Ur Leukocyte Esterase NEGATIVE Urine WBC (Auto) 33 Urine RBC (Auto) 1 U Hyaline Cast (Auto) 15 Squamous Epi Cells Auto 17 Urine Mucus (Auto) RARE Urine Ascorbic Acid NEGATIVE 02/20/19 10:31 WBC RBC Hgb Hct MCV MCH MCHC RDW Plt Count Lymph % (Auto) [place] % (Auto) Eos % (Auto) Baso % (Auto) Absolute Neuts (auto) Absolute Lymphs (auto) Absolute Monos (auto) Absolute Eos (auto) Absolute Basos (auto) Seg Neutrophils % Sodium Potassium Chloride Carbon Dioxide Anion Gap BUN Creatinine Est GFR ( Amer) Est GFR (MDRD) Non-Af Glucose Calcium Total Bilirubin Direct Bilirubin Neonat Total Bilirubin Neonat Direct Bilirubin Neonat Indirect Bili AST ALT Alkaline Phosphatase Troponin I < 0.012 NT-Pro-B Natriuret Pep 993 H Total Protein Albumin Urine Color Urine Appearance Urine pH Ur Specific [place] Urine Protein Urine Glucose (UA) Urine Ketones Urine Blood Urine Nitrite Urine Bilirubin Urine Urobilinogen Ur Leukocyte Esterase Urine WBC (Auto) Urine RBC (Auto) U Hyaline Cast (Auto) Squamous Epi Cells Auto Urine Mucus (Auto) Urine Ascorbic Acid Chest X-Ray 02/20/19 09:40 IMPRESSION: Cardiomegaly without pulmonary edema. Abdomen Ultrasound 02/20/19 10:54 IMPRESSION: Cholelithiasis with mild thickening of the gallbladder wall and a small amount of pericholecystic fluid. Negative sonographic Godoy sign. EKG: Sinus rhythm. Minor nonspecific T abnormalities diffuse. IMPRESSION/RECOMMENDATION: 1. Acute cholelithiasis/cholecystitis. For surgical removal of gallbladder tomorrow. 2. Hypertension: Seems to be fairly controlled. Continue current blood pressure medications. 3. Moderate dilated cardimyopathy with reportedly moderately reduced LV e jection fraction. Well compensated with no evidence of heart failure on exam at present. Chest x-ray shows no evidence of CHF. There is cardiomegaly on the chest x-ray. 4. Diabetes mellitus: Continue Accu-Cheks and current antidiabetic regiment. 5. History of tobacco abuse: Ineffective tobacco explained to the patient. Tobacco cessation counseling given. 3 minutes spent on this patient. 6. Preoperative cardiac risk assessment for cholecystectomy. We will try to obtain the patient's recent echocardiogram from Dr. Chinchilla's office tomorrow morning. THE PATIENT WOULD BE MODERATE RISK FOR THIS CHOLECYSTECTOMY. Would recommend closely perioperatively watch the patient for development of any arrhythmias and for development of congestive heart failure. This can be discussed with patient detail. Medical decision making is of high complexity. 60 minutes spent on this patient with more than 50% time spent in direct patient care. Discussed with Dr. Fernandes. Will follow
[2019-02-21] MEDS ORDERED: MIDAZOLAM 2 MG/2 ML INJ ONE (06:25)
[2019-02-21] MEDS ORDERED: ONDANSETRON HCL INJ/PF 4 MG/2 ML SDV ONE ×2 (06:25→10:29)
[2019-02-21] MEDS ORDERED: DEXAMETHASONE SOD PHOSPHATE INJ 4 MG/1 ML VIAL ONE ×2 (06:25→10:29)
[2019-02-21] MEDS ORDERED: FENTANYL CITRATE INJ/PF 100 MCG/2 ML AMPUL ONE (06:25)
[2019-02-21] MEDS ORDERED: SUGAMMADEX SODIUM 200 MG/2 ML SDV IV ONE (06:25)
[2019-02-21] MEDS ORDERED: PROPOFOL INJ 200 MG/20 ML VIAL IV ONE (06:26)
[2019-02-21] MEDS ORDERED: LIDOCAINE 0.5% INJ-PF (5 MG/ML) 50 ML SDV ONE (06:28)
[2019-02-21] MEDS ORDERED: CLINDAMYCIN 600 MG/D5W RTU 50 ML IV ONE (06:41)
[2019-02-21] MEDS ORDERED: BUPIVACAINE HCL 0.5%-EPI 1:200000 INJ/PF 30 ML VIAL ONE (07:39)
[2019-02-21] MEDS ORDERED: MORPHINE SULFATE 10 MG/ML INJ IV PRN (07:58)
[2019-02-21] MEDS ORDERED: CLINDAMYCIN 600 MG/D5W RTU 600 MG/50 ML RTUPB IV ONE (08:00)
[2019-02-21] MEDS ORDERED: OXYCODONE-ACETAMINOPHEN 5-325 MG TABLET PO PRN (08:01)
[2019-02-21] MEDS ORDERED: DEXAMETHASONE SOD PHOS INJ 10 MG/1 ML VIAL IV ONE (08:15)
[2019-02-21] MEDS ORDERED: (PENDING PHARMACY ID) (Lisinopril [Prinivil] 20 MG) PO SCH (10:00)
[2019-02-21] MEDS ORDERED: MORPHINE SULFATE SR 15 MG TABLET PO SCH (10:00)
[2019-02-21] MEDS ORDERED: GLYCOPYRROLATE 1 MG/5 ML VIAL ONE (10:29)
[2019-02-21] MEDS ORDERED: SUCCINYLCHOLINE CHLORIDE INJ 200 MG/10 ML VIAL ONE (10:29)
[2019-02-21] MEDS ORDERED: NEOSTIGMINE METHYLSULFATE 10 MG/10 ML VIAL ONE (10:29)
[2019-02-21] MEDS ORDERED: ROCURONIUM BROMIDE INJ 50 MG/5 ML VIAL IV ONE (10:29)
[2019-02-21] MEDS: ASPIRIN 81 MG TABLET, ENT COATED PO SCH (10:41)
[2019-02-21] MEDS: METFORMIN HCL 500 MG TABLET PO SCH (10:42)
[2019-02-21] MEDS: LISINOPRIL 10 MG TABLET PO SCH (10:55)
[2019-02-21] MEDS: FUROSEMIDE 40 MG TABLET PO SCH (10:55)
[2019-02-21] MEDS ORDERED: DEXAMETHASONE 4 MG TABLET PO SCH (18:00)
--- NOTE | 2019-02-21 18:16 | PDOC PROGRESS REPORT ---
Subjective Progress Note for:: 02/21/19 Subjective:: epigastric pains. Claims same pains when she was in a hospital for CHF in 2006. Smokes a pack aday past 25 years. Has some shortness of breath which shas even prior to admission but somehow a little worse this time Reason For Visit: SYMPTOMATIC CHOLELITHIASIS WITH CHOLECYSTITIS Physical Exam Vital Signs: Temp Pulse Resp BP Pulse Ox 98.1 F 62 18 156/89 H 98 02/21/19 14:56 02/21/19 14:56 02/21/19 14:56 02/21/19 14:56 02/21/19 14:56 Intake & Output 02/20/19 02/21/19 02/22/19 06:59 06:59 06:59 Intake Total 0 Balance 0 Weight 98.9 kg Exam: abdomen is soft with tenderness in the epigastrium ,mild tenderness RUQ area Results Laboratory Results: 02/20/19 10:31 02/20/19 10:31 02/20/19 10:31 Troponin I < 0.012 NT-Pro-B Natriuret Pep 993 H Impressions: Chest X-Ray 02/20/19 09:40 IMPRESSION: Cardiomegaly without pulmonary edema. Abdomen Ultrasound 02/20/19 10:54 IMPRESSION: Cholelithiasis with mild thickening of the gallbladder wall and a small amount of pericholecystic fluid. Negative sonographic Godoy sign. Assessment & Plan - Diagnosis (1) Obesity (BMI 30.0-34.9) Is this a current diagnosis for this admission?: Yes (2) COPD (chronic obstructive pulmonary disease) Is this a current diagnosis for this admission?: Yes (3) Congestive heart failure Is this a current diagnosis for this admission?: Yes - Time Time Spent with patient: 15-24 minutes - Inpatient Certification Medical Necessity: Need for IV Antibiotics, Need for Surgery - Plan Summary Plan Summary: D/W Dr Bejarano(Bag Bleacher). Claims patient is a moderately high risk for surgery. Had ECHO done at [facility] and apparently had a cardiac ejection fraction of 35% with pulmonary hypertension. Has gallstones on US with mild waall thickening and pericholecystic fluid. Have talked to OR and they are booked today and request OR in am. Informed Dr Bejarano and resumed cardiac meds. Patient likely will be admitted to ICU intubated post op then gradually wean.
[2019-02-21] MEDS: CARVEDILOL 12.5 MG TABLET PO SCH (21:43)
--- NOTE | 2019-02-21 22:12 | Progress Note ---
Provider Note Provider Note: CARDIOLOGY PROGRESS NOTE by Dr. Molly Limon on 02/21/2019. SUBJECTIVE: The patient denies any shortness of breath. There is no PND orthopnea. There is no chest pain or discomfort. There is no arrhythmia seen on the monitor. She still has some right upper quadrant discomfort. The patient was supposed to have surgery today, but due to emergency cases the patient cholecystectomy has been scheduled for tomorrow morning. The patient has no leg edema. DISCUSSIONS with patient's welt butter hand Dr. Chinchilla: Dr. Chinchilla stated that the patient had an echocardiogram in the end of January.. This showed a dilated left ventricle with ejection fraction of 35 to 40%. There was significant mitral regurgitation. Also she had significant pulmonary hypertension which is severe with a right ventricle systolic pressure [address] Chinchilla the patient has no history of coronary artery disease or [place]. He agrees that the patient should be moderate and acceptable risk for this gallbladder surgery. PHYSICAL EXAMINATION: The patient moderately obese. At present in no acute distress. Selected Entries 02/21/19 07:16 Temperature 97.6 F Temperature Oral Source Pulse Rate 65 Respiratory 16 Rate Blood Pressure 157/96 H Blood Pressure 116 Mean BP Location Left Arm BP Position Sitting O2 Sat by Pulse 96 Oximetry Oxygen Delivery Room Air Method HEAD: Is atraumatic normocephalic. EYES: Pupils equal round regular reactive light accommodation. Extraocular movements are normal. There is no conjunctival pallor. There is no scleral icterus. EARS: Tympanic memories are intact. External auditory canals are clear. NOSE: There is no deviated nasal septum. There is no inflammation nasal mucous membrane. MOUTH: Mucous membranes of mouth are moist. Tongue is moist. There is no ulcers. There is no bleeding from the gums. THROAT: There is no redness of the oropharynx. There is no exudates. SKIN: There is no skin rashes. There is no petechia or ecchymosis there is no jaundice. NECK: Supple. There is no JVD. Carotids are equal there is no bruit. There is no lymphadenopathy. There is no goiter. There is no lymphadenopathy. There is no accessory muscle respiration use. Trachea central. LUNGS: Shows diminished air entry and prolonged expiration, without any rhonchi rales or wheezing. On percussion there is hyperresonance. There is no chest wall tenderness on palpation. HEART: S1-S2 is heard. There is no S3 gallop. There is no S4 gallop. There is systolic murmur left sternal border and the apex there is no rub. ABDOMEN: There is mild discomfort on palpating the right upper quadrant. There is no paraspinal megaly. Bowel sounds well heard. There is no rebound guarding or rigidity. EXTREMITIES: Femorals are deep. Femorals are diminished. Leg pulses slightly diminished. There is no pedal edema. There is no DVT or cellulitis. There is no cyanosis or clubbing. Capillary refill is normal. There is no calf tenderness. 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 PSYCHIATRIC: The patient judgment insight are intact her affect is normal. Labs- All tests 24 hr 02/21/19 02/21/19 02/21/19 06:49 07:48 10:52 POC Glucose 97 99 93 02/21/19 02/21/19 15:32 21:47 POC Glucose 71 109 Chest X-Ray 02/20/19 09:40 IMPRESSION: Cardiomegaly without pulmonary edema. Abdomen Ultrasound 02/20/19 10:54 IMPRESSION: Cholelithiasis with mild thickening of the gallbladder wall and a small amount of pericholecystic fluid. Negative sonographic Godoy sign. IMPRESSION/RECOMMENDATION: 1. Acute cholelithiasis/cholecystitis. For surgical removal of gallbladder tomorrow. 2. Hypertension: Seems to be fairly controlled. Continue current blood pressure medications. 3. Moderate dilated cardimyopathy with reportedly moderately reduced LV ejection fraction. Well compensated with no evidence of heart failure on exam at present. Chest x-ray shows no evidence of CHF. There is cardiomegaly on the chest x-ray. 4. Diabetes mellitus: Continue Accu-Cheks and current antidiabetic regiment. 5. History of tobacco abuse: Ineffective tobacco explained to the patient. Tobacco cessation counseling given. 3 minutes spent on this patient. 6. Mitral regurgitation: Seems to be significant as per Dr. Chinchilla. 7. Preoperative cardiac risk assessment for cholecystectomy. In view of the patient's surgery being rescheduled for tomorrow we will restart the patient's beta-susie and NADEEM inhibitor. Medication regimen and management plan discussed with attending physician which is the surgical list Dr. Briggs. Reiterated my opinion that the patient is a moderate risk for this gallbladder surgery. I have discussed the discussions that I had with Dr. Chinchilla and also made Dr. Briggs aware that the patient has severe pulmonary hypertension. Medical decision making is of high complexity. 40 minutes spent on this patient more than 50% of time spent in direct patient care. Will follow.
[2019-02-22] MEDS ORDERED: BUPIVACAINE HCL 0.5%-EPI 1:200000 INJ/PF 30 ML VIAL ONE (08:17)
[2019-02-22] MEDS ORDERED: PROPOFOL INJ 200 MG/20 ML VIAL IV ONE (09:09)
[2019-02-22] MEDS ORDERED: FENTANYL CITRATE INJ/PF 250 MCG/5 ML AMPULE ONE (09:09)
[2019-02-22] MEDS ORDERED: MIDAZOLAM 2 MG/2 ML INJ ONE (09:09)
[2019-02-22] MEDS ORDERED: CLINDAMYCIN 600 MG/D5W RTU 600 MG/50 ML RTUPB IV ONE (09:23)
[2019-02-22] MEDS ORDERED: MORPHINE SULFATE 10 MG/ML INJ IV PRN (10:12)
[2019-02-22] MEDS ORDERED: MEPERIDINE HCL/PF INJ 25 MG/1 ML DISP.SYRIN IV PRN (10:12)
[2019-02-22] MEDS ORDERED: DIPHENHYDRAMINE HCL 50 MG/ML VIAL IV PRN (10:12)
[2019-02-22] MEDS ORDERED: PROMETHAZINE HCL INJ 25 MG/1 ML VIAL IV PRN (10:12)
[2019-02-22] MEDS ORDERED: FENTANYL CITRATE INJ/PF 100 MCG/2 ML AMPUL IV PRN ×3 (10:12)
--- NOTE | 2019-02-22 11:13 | Operative Report ---
Operative Report DATE OF SURGERY: 02/22/19 PREOPERATIVE DIAGNOSIS: Cholelithiasis. Acute and chronic cholecystitis POSTOPERATIVE DIAGNOSIS: same OPERATION: Laparoscopic cholecystectomy SURGEON: TORREY NGUYEN ANESTHESIA: GA TISSUE REMOVED OR ALTERED: Gallbladder COMPLICATIONS: None ESTIMATED BLOOD LOSS: 15 cc QUANTITATIVE BLOOD LOSS: 15 INTRAOPERATIVE FINDINGS: Slightly thickened gallbladder wall with adhesions PROCEDURE: Patient was placed in supine position and after adequate general anesthesia the abdomen was then prepped and draped in the usual sterile fashion. Appropriate timeout was then called the. An infraumbilical incision was made and the fascia identified and divided in the Krueger trocar inserted through the fascia into the abdominal cavity. Camera inserted and CO2 insufflated to a pressure of 15 mmHg. 3 other trochars were placed at 12 mm in the subxiphoid and two 5 mm in the right upper quadrant under direct vision. The fundus of the gallbladder was subsequently grasped and cystic duct. The infundibulum was then also grasped and cystic duct dissected. There was some adhesions and edema noted around the area after angle of safety identified the cystic duct was then clipped with hemoclips and divided within the distal clips. Cystic artery also clipped and divided between the clip in the liver with the use of harmonic wallace. Gallbladder was then dissected off the liver bed with the use of harmonic wallace. Gallbladder was inadvertently open and some bile extruded out. Most of the bile was then suctioned out with irrigation fluid. Gallbladder was then placed in an Endobag and pulled out through the umbilical port. The gallbladder bed was inspected and no evidence of bleeding noted. There is still some bilious fluid in the area and the drain was in place in the area of the liver bed and brought out to the lateralmost trocar site. It was then anchored to the skin with 2-0 silk. The trochars were then removed and CO2 allowed to come out of the trocar sites. The fascial defect was at the infraumbilical area was then closed with a [id number] suture using 0 Vicryl and 2 stay sutures that will prate placed earlier were then tied over the fascia for better closure. Marcaine anesthesia was then injected throughout the fascia into all incision sites. All the skin incisions were then closed with running subcuticular 4-0 Vicryl undyed. Steri-Strips placed over the operative operative incision sites. Patient tolerated procedure well. Estimated blood loss about 15cc. Needle instrument sponge count were all correct. Patient brought to recovery room extubated in satisfactory condition.
[2019-02-22] MEDS ORDERED: NORMAL SALINE 1000 ML 1,000 ML IV PRN (11:15)
[2019-02-22] MEDS ORDERED: CARVEDILOL 12.5 MG TABLET PO SCH (12:00)
[2019-02-22] MEDS: CARVEDILOL 12.5 MG TABLET PO SCH ×2 (16:56→21:00)
[2019-02-22] MEDS: METFORMIN HCL 500 MG TABLET PO SCH (17:04)
[2019-02-22] MEDS: KETOROLAC TROMETHAMINE INJ/PF 30 MG/1 ML SDV IV SCH ×2 (17:24→17:45)
[2019-02-22] MEDS: ASPIRIN 81 MG TABLET, ENT COATED PO SCH (17:25)
[2019-02-22] MEDS: CLINDAMYCIN 600 MG/D5W RTU 600 MG/50 ML RTUPB IV SCH ×2 (17:25→20:52)
[2019-02-22] MEDS: FUROSEMIDE 40 MG TABLET PO SCH (17:26)
[2019-02-22] MEDS: LISINOPRIL 10 MG TABLET PO SCH (17:26)
--- NOTE | 2019-02-22 21:49 | Progress Note ---
Provider Note Provider Note: CARDIOLOGY PROGRESS NOTE by Dr. Molly Limon on 02/22/2019. SUBJECTIVE: The patient underwent gallbladder surgery without any problems. The diagnosis is acute on chronic cholecystitis. The patient's surgical abdominal pain is well controlled she has no chest pain or discomfort. There is no shortness of breath. There is no PND orthopnea. There is no arrhythmia seen on the monitor. There is no TIA CVA symptoms. PHYSICAL EXAMINATION: The patient is moderately obese. At present no acute distress. Selected Entries 02/22/19 17:06 Temperature 97.8 F Temperature Oral Source Pulse Rate 64 Respiratory 18 Rate Blood Pressure 169/79 H Blood Pressure 109 Mean BP Location Left Arm BP Position Sitting O2 Sat by Pulse 94 Oximetry Oxygen Delivery Room Air Method HEAD: Is atraumatic normocephalic. EYES: Pupils equal round regular reactive light accommodation. Extraocular movements are normal. There is no conjunctival pallor. There is no scleral icterus. EARS: Tympanic memories are intact. External auditory canals are clear. NOSE: There is no deviated nasal septum. There is no inflammation nasal mucous membrane. MOUTH: Mucous membranes of mouth are moist. Tongue is moist. There is no ulcers. There is no bleeding from the gums. THROAT: There is no redness of the oropharynx. There is no exudates. SKIN: There is no skin rashes. There is no petechia or ecchymosis there is no jaundice. NECK: Supple. There is no JVD. Carotids are equal there is no bruit. There is no lymphadenopathy. There is no goiter. There is no lymphadenopathy. There is no accessory muscle respiration use. Trachea central. LUNGS: Shows diminished air entry and prolonged expiration, without any rhonchi rales or wheezing. On percussion there is hyperresonance. There is no chest wall tenderness on palpation. HEART: S1-S2 is heard. There is no S3 gallop. There is no S4 gallop. There is systolic murmur left sternal border and the apex there is no rub. ABDOMEN: Soft. Dressing is dry. There is no hepatospleno megaly.. Bowel sounds well heard. There is no rebound guarding or rigidity. EXTREMITIES: Femorals are deep. Femorals are diminished. Leg pulses slightly diminished. There is no pedal edema. There is no DVT or cellulitis. There is no cyanosis or clubbing. Capillary refill is normal. There is no calf tenderness. 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 PSYCHIATRIC: The patient judgment insight are intact her affect is normal. Labs- All tests 24 hr 02/21/19 02/22/19 02/22/19 21:47 06:01 12:14 POC Glucose 109 89 99 02/22/19 02/22/19 15:38 21:09 POC Glucose 100 162 H Chest X-Ray 02/20/19 09:40 IMPRESSION: Cardiomegaly without pulmonary edema. Abdomen Ultrasound 02/20/19 10:54 IMPRESSION: Cholelithiasis with mild thickening of the gallbladder wall and a small amount of pericholecystic fluid. Negative sonographic Godoy sign. IMPRESSION/RECOMMENDATION: 1. Acute cholelithiasis/cholecystitis. For surgical removal of gallbladder tomorrow. 2. Hypertension: Seems to be Not well controlled. Continue Coreg. We will increase the patient's lisinopril. 3. Moderate dilated cardimyopathy with reportedly moderately reduced LV ejection fraction. Well compensated with no evidence of heart failure on exam at present. Chest x-ray shows no evidence of CHF. There is cardiomegaly on the chest x-ray. 4. Diabetes mellitus: Continue Accu-Cheks and current antidiabetic regiment. 5. History of tobacco abuse: Ill effects of tobacco explained to the patient. Tobacco cessation counseling given. 3 minutes spent on this patient. 6. Mitral regurgitation: Seems to be significant as per Dr. Chinchilla 7. Severe pulmonary hypertension: Increasing the patient's NADEEM inhibitor will help. If still room then would start the patient on a calcium channel susie. 8. Status post cholecystectomy. MEDICATIONS reviewed. Medication dosages increased. Management plan and medical regimen discussed with the attending physician on the case. Discussed with the surgical list. The patient stable and hence is still on the floor and not in ICU. Will follow.
[2019-02-22] MEDS ORDERED: LISINOPRIL 10 MG TABLET PO SCH (22:00)
[2019-02-23] MEDS: KETOROLAC TROMETHAMINE INJ/PF 30 MG/1 ML SDV IV SCH ×2 (01:40→08:39)
[2019-02-23] MEDS: CLINDAMYCIN 600 MG/D5W RTU 600 MG/50 ML RTUPB IV SCH (03:00)
[2019-02-23 05:18] LABS: ABSOLUTE BASOPHILS # (AUTO) 0.1 10^3/uL (0.0-0.2); ABSOLUTE LYMPHOCYTES (AUTO) 1.2 10^3/uL (0.5-4.7); ABSOLUTE MONOCYTES (AUTO) 0.6 10^3/uL (0.1-1.4); ABSOLUTE NEUT (AUTO) 5.5 10^3/uL (1.7-8.2); BASOPHILS % (AUTO) 0.7 % (0-2); EOSINOPHILS % (AUTO) 0.1 % (0-6); HEMATOCRIT 34.9 % (36.0-47.0); HEMOGLOBIN 11.4 g/dL (12.0-15.5); LYMPHOCYTES % (AUTO) 15.7 % (13-45); MEAN CORPUSCULAR HEMOGLOBIN 27.2 pg (27.0-33.4); MEAN CORPUSCULAR HGB CONC 32.7 g/dL (32.0-36.0); MEAN CORPUSCULAR VOLUME 83 fl (80-97); MONOCYTES % (AUTO) 8.4 % (3-13); PLATELET COUNT 212 10^3/uL (150-450); RED BLOOD COUNT 4.18 10^6/uL (3.72-5.28); RED CELL DISTRIBUTION WIDTH 17.3 % (11.5-14.0); SEGMENTED NEUTROPHILS % (AUTO) 75.1 % (42-78); TOTAL CELLS COUNTED % (AUTO) 100 %; WHITE BLOOD COUNT 7.4 10^3/uL (4.0-10.5)
[2019-02-23 05:43] LABS: ALBUMIN 3.5 g/dL (3.5-5.0); ALKALINE PHOSPHATASE 66 U/L (38-126); ANION GAP 10 (5-19); ASPARTATE AMINO TRANSFERASE 26 U/L (14-36); BILIRUBIN,DIRECT 0.4 mg/dL (0.0-0.4); BILIRUBIN,TOTAL 0.7 mg/dL (0.2-1.3); BLOOD UREA NITROGEN 26 mg/dL (7-20); CALCIUM 8.9 mg/dL (8.4-10.2); CARBON DIOXIDE 23 mmol/L (22-30); CHLORIDE 107 mmol/L (98-107); GLUCOSE 152 mg/dL (75-110); POTASSIUM 4.2 mmol/L (3.6-5.0); TOTAL PROTEIN 6.5 g/dL (6.3-8.2)
--- NOTE | 2019-02-23 08:03 | PDOC DISCHARGE SUMMARY ---
General - Admit/Disc Date/PCP Admission Date/Primary Care Provider: 02/20/19 14:45 ALLEN RICKBENNY-Doug Discharge Date: 02/23/19 - Discharge Diagnosis Final Diagnosis: Cholelithiasis, acute and chronic cholecystitis COPD Pulmonary hypertension History of CHF - Assessment Summary: Patient admitted on 02/20/2019 for abdominal pains. Ultrasound showed gallstones with acute cholecystitis. Patient underwent laparoscopic cholecystectomy on 02/22/[address] Briggs. Postoperatively patient did very well and discharged improved on 02/23/2019. Patient to be followed in the surgical clinic in 2 weeks. Given a prescription for Toradol 10 mg p.o. every 6 hours as needed for pain times 12 patient advised not to do any lifting more than 10 pounds until seen in the clinic - Additional Information Resuscitation Status: Full Code Discharge Diet: As Tolerated Discharge Activity: No Lifting Over 10 Pounds, No Lifting/Push/Pulling Referrals: GRANT DE MD [ACTIVE STAFF] - Home Medications: Aspirin [Ecotrin 81 mg EC Tablet] 81 mg PO DAILY 02/20/19 Furosemide [Lasix 40 mg Tablet] 40 mg PO DAILY 02/20/19 Lisinopril [Prinivil] 20 mg PO DAILY 02/20/19 Metformin HCl [Glucophage] 1,000 mg PO DAILY 02/20/19 History of Present Illiness History of Present Illness: JARETT REED is a 63 year old female Physical Exam Vital Signs: Temp Pulse Resp BP Pulse Ox 98.7 F 76 16 149/76 H 98 02/22/19 23:00 02/22/19 23:00 02/22/19 23:00 02/22/19 23:00 02/22/19 23:00 Intake & Output 02/22/19 02/23/19 02/24/19 06:59 06:59 06:59 Intake Total 260 2120 Output Total 440 Balance 260 1680 Weight 100.2 kg 99.7 kg Results Laboratory Results: WBC 7.4 10^3/uL (4.0-10.5) 02/23/19 04:53 RBC 4.18 10^6/uL (3.72-5.28) 02/23/19 04:53 Hgb 11.4 g/dL (12.0-15.5) L 02/23/19 04:53 Hct 34.9 % (36.0-47.0) L 02/23/19 04:53 MCV 83 fl (80-97) 02/23/19 04:53 MCH 27.2 pg (27.0-33.4) 02/23/19 04:53 MCHC 32.7 g/dL (32.0-36.0) 02/23/19 04:53 RDW 17.3 % (11.5-14.0) H 02/23/19 04:53 Plt Count 212 10^3/uL (150-450) 02/23/19 04:53 Lymph % (Auto) 15.7 % (13-45) 02/23/19 04:53 [place] % (Auto) 8.4 % (3-13) 02/23/19 04:53 Eos % (Auto) 0.1 % (0-6) 02/23/19 04:53 Baso % (Auto) 0.7 % (0-2) 02/23/19 04:53 Absolute Neuts (auto) 5.5 10^3/uL (1.7-8.2) 02/23/19 04:53 Absolute Lymphs (auto) 1.2 10^3/uL (0.5-4.7) 02/23/19 04:53 Absolute Monos (auto) 0.6 10^3/uL (0.1-1.4) 02/23/19 04:53 Absolute Eos (auto) 0.0 10^3/uL (0.0-0.6) 02/23/19 04:53 Absolute Basos (auto) 0.1 10^3/uL (0.0-0.2) 02/23/19 04:53 Seg Neutrophils % 75.1 % (42-78) 02/23/19 04:53 Sodium 139.6 mmol/L (137-145) 02/23/19 04:53 Potassium 4.2 mmol/L (3.6-5.0) 02/23/19 04:53 Chloride 107 mmol/L (98-107) 02/23/19 04:53 Carbon Dioxide 23 mmol/L (22-30) 02/23/19 04:53 Anion Gap 10 (5-19) 02/23/19 04:53 BUN 26 mg/dL (7-20) H 02/23/19 04:53 Creatinine 0.81 mg/dL (0.52-1.25) 02/23/19 04:53 Est GFR ( Amer) > 60 (>60) 02/23/19 04:53 Est GFR (MDRD) Non-Af > 60 (>60) 02/23/19 04:53 Glucose 152 mg/dL (75-110) H 02/23/19 04:53 POC Glucose 154 mg/dL (70-110) H 02/23/19 06:05 Calcium 8.9 mg/dL (8.4-10.2) 02/23/19 04:53 Total Bilirubin 0.7 mg/dL (0.2-1.3) 02/23/19 04:53 Direct Bilirubin 0.4 mg/dL (0.0-0.4) 02/23/19 04:53 Neonat Total Bilirubin Not Reportable 02/23/19 04:53 Neonat Direct Bilirubin Not Reportable 02/23/19 04:53 Neonat Indirect Bili Not Reportable 02/23/19 04:53 AST 26 U/L (14-36) 02/23/19 04:53 ALT 20 U/L (<35) 02/23/19 04:53 Alkaline Phosphatase 66 U/L (38-126) 02/23/19 04:53 Troponin I < 0.012 ng/mL 02/20/19 10:31 NT-Pro-B Natriuret Pep 993 pg/mL (5-900) H 02/20/19 10:31 Total Protein 6.5 g/dL (6.3-8.2) 02/23/19 04:53 Albumin 3.5 g/dL (3.5-5.0) 02/23/19 04:53 Urine Color YELLOW 02/20/19 10:31 Urine Appearance SLIGHTLY-CLOUDY 02/20/19 10:31 Urine pH 5.0 (5.0-9.0) 02/20/19 10:31 Ur Specific [place] 1.014 02/20/19 10:31 Urine Protein 100 mg/dL (NEGATIVE) H 02/20/19 10:31 Urine Glucose (UA) NEGATIVE mg/dL (NEGATIVE) 02/20/19 10:31 Urine Ketones NEGATIVE mg/dL (NEGATIVE) 02/20/19 10:31 Urine Blood NEGATIVE (NEGATIVE) 02/20/19 10:31 Urine Nitrite NEGATIVE (NEGATIVE) 02/20/19 10:31 Urine Bilirubin NEGATIVE (NEGATIVE) 02/20/19 10:31 Urine Urobilinogen 4.0 mg/dL (<2.0) H 02/20/19 10:31 Ur Leukocyte Esterase NEGATIVE (NEGATIVE) 02/20/19 10:31 Urine WBC (Auto) 33 /HPF 02/20/19 10:31 Urine RBC (Auto) 1 /HPF 02/20/19 10:31 U Hyaline Cast (Auto) 15 /LPF 02/20/19 10:31 Squamous Epi Cells Auto 17 /HPF 02/20/19 10:31 Urine Mucus (Auto) RARE /LPF 02/20/19 10:31 Urine Ascorbic Acid NEGATIVE (NEGATIVE) 02/20/19 10:31 02/20/19 10:31 Troponin I < 0.012 NT-Pro-B Natriuret Pep 993 H Impressions: Chest X-Ray 02/20/19 09:40 IMPRESSION: Cardiomegaly without pulmonary edema. Abdomen Ultrasound 02/20/19 10:54 IMPRESSION: Cholelithiasis with mild thickening of the gallbladder wall and a small amount of pericholecystic fluid. Negative sonographic Godoy sign.
[2019-02-23 09:47] VITALS: BP 128/79
== END 2019-02-23 10:46 | disposition home or self-care (01) | DRG 418 ==
LOC: ER 08:50 → EH 14:45 → 4S 17:47
PROVIDERS: ADMIT Surgery; ATTEND Surgery
PROC: 0FT44ZZ Resection of Gallbladder, Percutaneous Endoscopic Approach (ICD-10-PCS; principal; 2019-02-22 09:00)
DX: K80.12 Calculus of gallbladder with acute and chronic cholecystitis without obstruction (principal); I42.9 Cardiomyopathy, unspecified; F17.210 Nicotine dependence, cigarettes, uncomplicated; K76.0 Fatty (change of) liver, not elsewhere classified; I11.0 Hypertensive heart disease with heart failure; I50.9 Heart failure, unspecified; I25.10 Atherosclerotic heart disease of native coronary artery without angina pectoris; J44.9 Chronic obstructive pulmonary disease, unspecified; E11.9 Type 2 diabetes mellitus without complications; I27.20 Pulmonary hypertension, unspecified; E66.9 Obesity, unspecified; Z68.30 Body mass index [BMI] 30.0-30.9, adult; K82.8 Other specified diseases of gallbladder; Z82.3 Family history of stroke; Z82.5 Family history of asthma and other chronic lower respiratory diseases; Z82.49 Family history of ischemic heart disease and other diseases of the circulatory system; Z88.0 Allergy status to penicillin; Z79.899 Other long term (current) drug therapy; Z79.84 Long term (current) use of oral hypoglycemic drugs; Z79.82 Long term (current) use of aspirin
CPT/HCPCS: 36415; 71045; 76705; 790; 80053; 81001; 82962; 83880; 84484; 85025; 88304; 93005; 93010; 99285; J0330; J1100; J1885; J2250; J2405; J2704; J2710; J3010; J3490

== ENCOUNTER → 2019-06-20 | Outpatient (CLI) | payer MEDICAID, MEDICARE ==
--- NOTE | 2019-06-20 10:03 | WOMENS IMAGING REPORT ---
EXAM DESCRIPTION: BONE DENSITY HIP/SPINE COMPLETED DATE/TIME: 06/20/2019 9:41 am REASON FOR STUDY: Z78.0 BONE DENSITY Z12.2 ENCNTR SCREEN FOR MALIGNANT NEOPLASM OF RESPIRATORY OR Z 87.891 PERSONAL HISTORY OF NICOTINE DEPENDENCE Z78.0 ASYMPTOMATIC MENOPAUSAL STATE COMPARISON: None. TECHNIQUE: Dual-Energy X-ray Absorptiometry (DEXA) of the AP Spine and Hip. LIMITATIONS: None. FINDINGS: LUMBAR SPINE: The bone mineral density (BMD) measured from L1-L4 in the AP projection correlates with a T-score of -1.1, which is osteopenia as defined by the World Health Organization. BMD Change vs Baseline: N/A HIP: The bone mineral density (BMD) measured in the left hip correlates with a T-score of -0.8, which is n ormal as defined by the World Health Organization. BMD Change vs Baseline: N/A 10 year Fracture Risk Assessment: Major Osteoporotic Fracture: None reported. The patient is premenopausal. Hip Fracture: None reported. The patient is premenopausal. IMPRESSION: 1. LUMBAR SPINE WHO CLASSIFICATION: OSTEOPENIA. 2. HIP WHO CLASSIFICATION: NORMAL. OVERALL ASSESSMENT: WHO CLASSIFICATION: OSTEOPENIA. COMMENT: The World Health Organization defines low BMD as follows: T-score: Normal: Greater than -1.0 Osteopenia: Between -1.0 and -2.5 Osteoporosis: Less than -2.5 without fractures Established osteoporosis: Less than -2.5 with fractures In general, you may wish to consider: Diagnosis Treatment Follow-up DEXA Normal BMD Prevention 2-3 years Osteopenia Prevention/Therapy 1-2 years Osteoporosis Therapy Yearly TECHNICAL DOCUMENTATION: JOB ID: [id number] 2010 [employer]- All Rights Reserved Reading location - IP/workstation name: [email or web address]
--- NOTE | 2019-06-20 14:29 | RADIOLOGY REPORT (SQ) ---
EXAM DESCRIPTION: CT LUNG CANCER SCREENING COMPLETED DATE/TIME: 06/20/2019 9:59 am REASON FOR STUDY: Z87.891 PERSONAL HISTORY OF NICOTINE DEPENDENCE, Z12.2 ENCNTR SCREEN FOR MA Z12.2 ENCNTR SCREEN FOR MALIGNANT NEOPLASM OF RESPIRATORY OR Z87.891 PERSONAL HISTORY OF NICOTINE DEPENDE NCE Z78.0 ASYMPTOMATIC MENOPAUSAL STATE Has the patient had a Chest CT scan within the past year? N Was the patient offered tobacco cessation counseling? Y Was the patient engaged in shared decision making for this test? Y Does the patient have signs or symptoms of Lung Cancer? N Is the patient a smoker? Y How many pack years? 30 How many years since quitting smoking? 0 Patients age: 63 COMPARISON: None. TECHNIQUE: Low Dose CT scan performed of the chest without intravenous contrast for purposes of scre ening for lung cancer. Images reviewed with lung, soft tissue and bone windows. Reconstructed coron al and sagittal MPR images reviewed. All images stored on PACS. All CT scanners at this facility use dose modulation, iterative reconstruction, and/or weight based d osing when appropriate to reduce radiation dose to as low as reasonably achievable (ALARA). [facility]: Dose Right [facility]: CareDose [facility]: Dose Right [facility]: Teradose 4D [facility]: [employer] RADIATION DOSE: CT Rad equipment meets quality standard of care and radiation dose reduction techniq ues were employed. CTDIvol: NaN mGy. DLP: 0 mGy-cm. LIMITATIONS: No technical limitations. FINDINGS: LUNGS AND PLEURA: There is mild bronchial wall thickening without bronchiectasis or segmen yaniv mucus plugging. The trachea and main bronchi are patent. There are several bilateral pulmonary n odules ; these include the solid 4 mm nodule in the left upper lobe (image 63 of series 3), the 2 mm nodules along the horizontal fissure (images 109 of series 3), and the 4 mm perifissural nodule in th e right lower lobe (image 131 of series 3). There is no consolidation, pleural effusion or ground-gl ass opacification. HILAR AND MEDIASTINAL STRUCTURES: Limited evaluation. There is no gross adenopathy or mass. HEART AND VASCULAR STRUCTURES: Cardiomegaly. There is no pericardial effusion. CORONARY ARTERY CALCIFICATIONS: None. UPPER ABDOMEN, THYROID, BONES, OTHER SOFT TISSUES: Cholecystectomy clips. IMPRESSION: 1. Cardiomegaly without pulmonary edema. 2. Noncalcified less than 6 mm solid pulmonary nodules. LUNGRADS: LUNGRADS: 2 BENIGN APPEARANCE OR BEHAVIOR. NODULES WITH A VERY LOW LIKELIHOOD OF BECOMING A CLINICALLY ACTIVE CANCER DUE TO SIZE OR LACK OF GROWTH. MODIFIER: NONE. RECOMMENDATION: Continue annual screening with LDCT in 12 months. COMMENT: CRITERIA: Solid nodule(s): < 6 mm; new < 4 mm. Part solid nodule(s): < 6 mm total diameter on baseline screening. Non solid nodule(s) (GGN): < 20 mm OR ? 20 and unchanged or slowly growing. Category 3 or 4 nodules unchanged for ? 3 months. TECHNICAL DOCUMENTATION: JOB ID: [id number] Quality ID # [id number]: Final reports with documentation of one or more dose reduction techniques (e.g., Au tomated exposure control, adjustment of the mA and/or kV according to patient size, use of iterative reconstruction technique) 2010 [facility], [place] Radiology Reading location - IP/workstation name: [email or web address]
== END ==
LOC: WI 09:05
PROVIDERS: ATTEND Physician Assistant Medical
DX: Z78.0 Asymptomatic menopausal state (principal); Z87.891 Personal history of nicotine dependence
CPT/HCPCS: 77080; G0297

== ENCOUNTER → 2020-01-14 | Outpatient (CLI) | payer MEDICARE ==
[2020-01-14 10:30] LABS: ABSOLUTE EOSINOPHILS # (AUTO) 0.2 10^3/uL (0.0-0.6); ABSOLUTE LYMPHOCYTES (AUTO) 1.4 10^3/uL (0.5-4.7); ABSOLUTE MONOCYTES (AUTO) 0.4 10^3/uL (0.1-1.4); ABSOLUTE NEUT (AUTO) 3.1 10^3/uL (1.7-8.2); BASOPHILS % (AUTO) 0.8 % (0-2); EOSINOPHILS % (AUTO) 3.6 % (0-6); HEMATOCRIT 34.5 % (36.0-47.0); HEMOGLOBIN 11.6 g/dL (12.0-15.5); LYMPHOCYTES % (AUTO) 26.9 % (13-45); MEAN CORPUSCULAR HEMOGLOBIN 27.8 pg (27.0-33.4); MEAN CORPUSCULAR HGB CONC 33.6 g/dL (32.0-36.0); MEAN CORPUSCULAR VOLUME 83 fl (80-97); MONOCYTES % (AUTO) 8.4 % (3-13); PLATELET COUNT 264 10^3/uL (150-450); RED BLOOD COUNT 4.16 10^6/uL (3.72-5.28); RED CELL DISTRIBUTION WIDTH 15.6 % (11.5-14.0); SEGMENTED NEUTROPHILS % (AUTO) 60.3 % (42-78); TOTAL CELLS COUNTED % (AUTO) 100 %; WHITE BLOOD COUNT 5.1 10^3/uL (4.0-10.5)
[2020-01-14 10:50] LABS: ALBUMIN 4.1 g/dL (3.5-5.0); ALKALINE PHOSPHATASE 73 U/L (38-126); ANION GAP 7 (5-19); ASPARTATE AMINO TRANSFERASE 19 U/L (14-36); BILIRUBIN,DIRECT 0.4 mg/dL (0.0-0.4); BILIRUBIN,TOTAL 0.8 mg/dL (0.2-1.3); BLOOD UREA NITROGEN 12 mg/dL (7-20); CALCIUM 9.2 mg/dL (8.4-10.2); CARBON DIOXIDE 31 mmol/L (22-30); CHLORIDE 103 mmol/L (98-107); GLUCOSE 120 mg/dL (75-110); POTASSIUM 3.7 mmol/L (3.6-5.0); TOTAL PROTEIN 6.9 g/dL (6.3-8.2)
--- NOTE | 2020-01-14 12:18 | RADIOLOGY REPORT (SQ) ---
EXAM DESCRIPTION: CHEST PA/LATERAL IMAGES COMPLETED DATE/TIME: 01/14/2020 10:03 am REASON FOR STUDY: SHORTNESS OF BREATH COMPARISON: 02/20/2019 EXAM PARAMETERS: NUMBER OF VIEWS: two views TECHNIQUE: Digital Frontal and Lateral radiographic views of the chest acquired. RADIATION DOSE: NA LIMITATIONS: none FINDINGS: LUNGS AND PLEURA: No opacities, masses or pneumothorax. No pleural effusion. MEDIASTINUM AND HILAR STRUCTURES: No masses or contour abnormalities. HEART AND VASCULAR STRUCTURES: Cardiomegaly. No adia pulmonary edema. BONES: No acute findings. HARDWARE: None in the chest. OTHER: No other significant finding. IMPRESSION: Cardiomegaly without adia pulmonary edema. TECHNICAL DOCUMENTATION: JOB ID: [id number] 2010 [employer]- All Rights Reserved Reading location - IP/workstation name: [email or web address]
== END ==
LOC: OD 09:38
PROVIDERS: ATTEND Nurse Practitioner Family
DX: R06.02 Shortness of breath (principal); I11.0 Hypertensive heart disease with heart failure; I50.41 Acute combined systolic (congestive) and diastolic (congestive) heart failure; E11.9 Type 2 diabetes mellitus without complications
CPT/HCPCS: 36415; 71046; 80053; 83880; 85025

== ENCOUNTER 2020-01-20 10:38 | Emergency (ER) | payer MEDICARE ==
[2020-01-20 11:54] LABS: ABSOLUTE EOSINOPHILS # (AUTO) 0.2 10^3/uL (0.0-0.6); ABSOLUTE LYMPHOCYTES (AUTO) 1.5 10^3/uL (0.5-4.7); ABSOLUTE MONOCYTES (AUTO) 0.4 10^3/uL (0.1-1.4); ABSOLUTE NEUT (AUTO) 4.1 10^3/uL (1.7-8.2); BASOPHILS % (AUTO) 0.8 % (0-2); EOSINOPHILS % (AUTO) 3.6 % (0-6); HEMATOCRIT 34.9 % (36.0-47.0); HEMOGLOBIN 11.6 g/dL (12.0-15.5); LYMPHOCYTES % (AUTO) 23.2 % (13-45); MEAN CORPUSCULAR HEMOGLOBIN 27.9 pg (27.0-33.4); MEAN CORPUSCULAR HGB CONC 33.3 g/dL (32.0-36.0); MEAN CORPUSCULAR VOLUME 84 fl (80-97); MONOCYTES % (AUTO) 6.9 % (3-13); PLATELET COUNT 270 10^3/uL (150-450); RED BLOOD COUNT 4.17 10^6/uL (3.72-5.28); RED CELL DISTRIBUTION WIDTH 16.1 % (11.5-14.0); SEGMENTED NEUTROPHILS % (AUTO) 65.5 % (42-78); TOTAL CELLS COUNTED % (AUTO) 100 %; WHITE BLOOD COUNT 6.3 10^3/uL (4.0-10.5)
[2020-01-20 12:07] LABS: ALBUMIN 4.1 g/dL (3.5-5.0); ALKALINE PHOSPHATASE 74 U/L (38-126); ANION GAP 7 (5-19); ASPARTATE AMINO TRANSFERASE 17 U/L (14-36); BILIRUBIN,DIRECT 0.4 mg/dL (0.0-0.4); BILIRUBIN,TOTAL 0.6 mg/dL (0.2-1.3); BLOOD UREA NITROGEN 11 mg/dL (7-20); CARBON DIOXIDE 29 mmol/L (22-30); CHLORIDE 106 mmol/L (98-107); GLUCOSE 140 mg/dL (75-110); POTASSIUM 3.6 mmol/L (3.6-5.0)
[2020-01-20 12:22] LABS: TROPONIN I 0.018 ng/mL
--- NOTE | 2020-01-20 12:34 | RADIOLOGY REPORT (SQ) ---
EXAM DESCRIPTION: CHEST SINGLE VIEW IMAGES COMPLETED DATE/TIME: 01/20/2020 11:11 am REASON FOR STUDY: sob COMPARISON: 01/14/2020 EXAM PARAMETERS: NUMBER OF VIEWS: One view. TECHNIQUE: Single frontal radiographic view of the chest acquired. RADIATION DOSE: NA LIMITATIONS: None. FINDINGS: LUNGS AND PLEURA: No opacities, masses or pneumothorax. No pleural effusion. MEDIASTINUM AND HILAR STRUCTURES: No masses. Contour normal. HEART AND VASCULAR STRUCTURES: Cardiomegaly. No pulmonary vascular congestion. BONES: No acute findings. HARDWARE: None in the chest. OTHER: No other significant finding. IMPRESSION: No significant interval change. No acute cardiopulmonary disease. TECHNICAL DOCUMENTATION: JOB ID: [id number] 2010 [employer]- All Rights Reserved Reading location - IP/workstation name: [email or web address]
[2020-01-20] MEDS ORDERED: FUROSEMIDE INJ/PF 40 MG/4 ML SDV IV ONE (13:03)
--- NOTE | 2020-01-20 15:14 | ER Document Report ---
ED General - General Chief Complaint: Shortness Of Breath Stated Complaint: SHORT OF BREATH Time Seen by Provider: 01/20/20 11:19 Primary Care Provider: LINA WHITE NP [Primary Care Provider] - Follow up as needed Mode of Arrival: Ambulatory Information source: Patient TRAVEL OUTSIDE OF THE [place] IN LAST 30 DAYS: No - HPI Notes: Patient states she has been having shortness of breath for several weeks. She states she was recently seen at her primary care clinic approximately 5 to 6 days ago. She states that they called her today and told her she was to come to the emergency department. She states she has had no other new symptoms other than the shortness of breath. She has had no chest pain. No sweating. No nausea vomiting or diarrhea. No cough cold or congestion. She states she does have a history of congestive heart failure and that she has been taking her medications as prescribed. Her shortness breath has been moderate. Is worse with exertion and better with rest. It obviously does not radiate. It has been relatively constant. - Related Data Allergies/Adverse Reactions: Penicillins Allergy (Verified 01/20/20 11:07) Past Medical History - General Information source: Patient - Social History Smoking Status: Current Every Day Smoker Chew tobacco use (# tins/day): No Frequency of alcohol use: None Drug Abuse: None Family History: None, DM, Hypertension, Malignancy Patient has homicidal ideation: No - Past Medical History Cardiac Medical History: Reports: Hx Congestive Heart Failure, Hx Coronary Artery Disease, Hx Hypertension Denies: Hx Heart Attack Pulmonary Medical History: Reports: Hx COPD Denies: Hx Asthma, Hx Bronchitis, Hx Pneumonia Neurological Medical History: Denies: Hx Cerebrovascular Accident, Hx Seizures Endocrine Medical History: Reports: Hx Diabetes Mellitus Type 2. Denies: Hx Diabetes Mellitus Type 1, Hx Hyperthyroidism, Hx Hypothyroidism Renal/ Medical History: Denies: Hx Peritoneal Dialysis GI Medical History: Denies: Hx Cirrhosis, Hx Hepatitis Musculoskeletal Medical History: Denies Hx Arthritis Skin Medical History: Denies Hx Eczema, Denies Hx Psoriasis Psychiatric Medical History: Denies: Hx Depression Infectious Medical History: Denies: Hx Hepatitis Past Surgical History: Reports: Hx Breast Surgery - Cyst removed from breast, Hx Cholecystectomy. Denies: Hx Hysterectomy - Immunizations Immunizations up to date: Yes Hx Diphtheria, Pertussis, Tetanus Vaccination: Yes Review of Systems - Review of Systems Constitutional: denies: Chills, Fever Cardiovascular: denies: Chest pain, Palpitations Respiratory: Short of breath. denies: Cough -: Yes All other systems reviewed and negative Physical Exam - Vital signs Vitals: Temp Pulse Resp BP Pulse Ox 97.7 F 63 24 H 159/69 H 97 01/20/20 10:53 01/20/20 10:53 01/20/20 10:53 01/20/20 10:53 01/20/20 10:53 Interpretation: Normal - General General appearance: Appears well, Alert - HEENT Head: Normocephalic, Atraumatic Eyes: Normal Pupils: PERRL - Respiratory Respiratory status: No respiratory distress, Tachypnea - mild Chest status: Nontender Breath sounds: Decreased air movement Chest palpation: Normal - Cardiovascular Rhythm: Regular Heart sounds: Normal auscultation Murmur: No - Abdominal Inspection: Normal Distension: No distension Bowel sounds: Normal Tenderness: Nontender Organomegaly: No organomegaly - Back Back: Normal, Nontender - Extremities General upper extremity: Normal inspection, Nontender, Normal color, Normal ROM, Normal temperature General lower extremity: Normal inspection, Nontender, Edema - 2+ bilaterally, N ormal color, Normal ROM, Normal temperature, Normal weight bearing. No: Jose's sign - Neurological Neuro grossly intact: Yes Cognition: Normal Orientation: AAOx4 [place] Coma Scale Eye Opening: Spontaneous [place] Coma Scale Verbal: Oriented Shannon Coma Scale Motor: Obeys Commands Shannon Coma Scale Total: 15 Speech: Normal Motor strength normal: LUE, RUE, LLE, RLE Sensory: Normal - Psychological Associated symptoms: Normal affect, Normal mood - Skin Skin Temperature: Warm Skin Moisture: Dry Skin Color: Normal Course - Re-evaluation Re-evalutation: 01/20/20 15:12 Patient presents with some shortness of breath is been going on for several weeks. She was referred from her primary care doctor's office to an elevated BNP is approximate 390 at the office. I did call and speak with the office who requested patient come at 145 this for repeat appointment. Patient was given Lasix here and has had approximately 1500 out. Patient has been able to ambulate about the ED without problem and states she feels much better. Her saturation post ambulation is 97% on room air. - Vital Signs Vital signs: Temp Pulse Resp BP Pulse Ox 97.7 F 63 24 H 159/69 H 97 01/20/20 10:53 01/20/20 10:53 01/20/20 10:53 01/20/20 10:53 01/20/20 10:53 - Laboratory Result Diagrams: 01/20/20 11:28 01/20/20 11:28 Laboratory results interpreted by me: 01/20/20 01/20/20 01/20/20 11:28 11:28 11:28 Hgb 11.6 L Hct 34.9 L RDW 16.1 H Glucose 140 H NT-Pro-B Natriuret Pep 990 H - Diagnostic Test Radiology reviewed: Image reviewed, Reports reviewed - EKG Interpretation by Me EKG shows normal: Sinus rhythm Rate: Normal - 60 Rhythm: NSR Voltage: Consistent with LVH Discharge - Discharge Clinical Impression: CHF (congestive heart failure) Qualifiers: Heart failure type: systolic Heart failure chronicity: acute on chronic Qualified Code(s): I50.23 - Acute on chronic systolic (congestive) heart failure Condition: Stable Disposition: HOME, SELF-CARE Instructions: Congestive Heart Failure ([facility]) Additional Instructions: Please see Lina Guidry this at 1:45 PM. Referrals: LINA WHITE NP [Primary Care Provider] - 01/22/20 1:45 pm
[2020-01-20 15:16] VITALS: BP 142/70
--- NOTE | 2020-01-21 00:57 | EKG REPORT ---
SEVERITY:- ABNORMAL ECG - SINUS RHYTHM LVH WITH SECONDARY REPOLARIZATION ABNORMALITY : Confirmed by: Frankie Farrell 21-Jan-2020 00:56:42
== END 2020-01-20 15:20 | disposition home or self-care (01) ==
LOC: ER 10:38
DX: I11.0 Hypertensive heart disease with heart failure (principal); I50.23 Acute on chronic systolic (congestive) heart failure; R06.02 Shortness of breath; F17.200 Nicotine dependence, unspecified, uncomplicated; J44.9 Chronic obstructive pulmonary disease, unspecified; Z88.0 Allergy status to penicillin
CPT/HCPCS: 93005; 99285; 96374; 36415; 85025; 80053; 84484; 83880; 71045; 93010; J1940